=== PATIENT | female | born 1950 | race Caucasian/White ===

== ENCOUNTER → 2018-08-07 | Outpatient (CLI) | payer MEDICARE ==
--- NOTE | 2018-08-07 15:05 | 2DMMODE ---
[place] [address] 2 D/M-MODE ECHOCARDIOGRAM Name: CASTROKULWANT Room: [facility]#: [id number] Admission: 08/07/18 Attend Phys: Jolie Benjamin Discharge: Date of : 52 Date of Service: 08/07/18 1504 Report #: [id number] THIS REPORT FOR: //name// APPROVED REPORT Study performed: 08/07/2018 11:22:20 EXAM: Comprehensive 2D, Doppler, and color-flow Echocardiogram Patient Location: Out-Patient Status: routine BSA: 2.43 HR: 81 bpm BP: 130/80 mmHg Rhythm: NSR Other Information Study Quality: Good Indications Mitral Valve Disease 2D Dimensions IVSd: 10.67 (7-11mm) LVOT Diam: 20.11 (18-24mm) LVDd: 46.67 mm PWd: 10.20 (7-11mm) Ascending Ao: 33.10 (22-36mm) LVDs: 28.87 (25-40mm) Aortic Root: 26.13 mm Volumes Left Atrial Volume (Systole) LA ESV Index: 41.50 mL/m2 Aortic Valve AoV Peak Liang.: 2.14 m/s AO Peak Gr.: 18.26 mmHg LVOT Max P.90 mmHg AO Mean Gr.: 10.64 mmHg LVOT Mean P.79 mmHg LVOT Max V: 1.41 m/s AO V2 VTI: 42.15 cm LVOT Mean V: 0.89 m/s GUSTAVO (VTI): 2.10 cm2 LVOT V1 VTI: 27.84 cm Mitral Valve E/A Ratio: 1.84 MV Decel. Time: 178.19 ms MV E Max Liang.: 1.83 m/[place] [address] 2 D/M-MODE ECHOCARDIOGRAM Name: KULWANT CASTRO Room: [facility]#: [id number] Admission: 08/07/18 Attend Phys: Jolie Benjamin Discharge: Date of : 52 Date of Service: 08/07/18 1504 Report #: [id number] MV PHT: 51.67 ms MVA (PHT): 4.26 cm2 TDI E/Lateral E': 18.30 E/Medial E': 10.76 Medial E' Liang.: 0.17 m/s Lateral E' Liang.: 0.10 m/s Pulmonary Valve PV Peak Liang.: 1.31 m/s PV Peak Gr.: 6.88 mmHg Tricuspid Valve RAP Estimate: 5.00 mmHg TR Peak Gr.: 39.71 mmHg RVSP: 45.00 mmHg PA Pressure: 45.00 mmHg Left Ventricle The left ventricle is normal size. There is normal LV segmental wall motion. There is normal left ventricular wall thickness. Left ventricular systolic function is normal. LVEF is 55-60%. Transmitral Doppler flow pattern suggests impaired LV relaxation. Right Ventricle Right ventricle is mildly dilated. The right ventricular systolic function is normal. Atria Left atrium is mild to moderately dilated. Right atrium is mildly dilated. Aortic Valve The aortic valve is normal in structure. No aortic regurgitation is present. There is no aortic valvular stenosis. Mitral Valve The mitral valve is normal in structure. Moderate mitral regurgitation. No evidence of mitral valve stenosis. Tricuspid Valve The tricuspid valve is normal in structure. Mild tricuspid regurgitation. Moderate pulmonary hypertension. The RVSP is 45-50 mmHg. Pulmonic Valve The pulmonary valve is normal in structure. There is no pulmon[place] [address] 2 D/M-MODE ECHOCARDIOGRAM Name: KULWANT CASTRO Room: [facility]#: [id number] Admission: 08/07/18 Attend Phys: Jolie Benjamin Discharge: Date of : 52 Date of Service: 08/07/18 1504 Report #: [id number] Great Vessels The aortic root is normal in size. IVC is normal in size and collapses >50% with inspiration. Pericardium There is no pericardial effusion. <Conclusion> The left ventricle is normal size. There is normal left ventricular wall thickness. Left ventricular systolic function is normal. LVEF is 55-60%. Transmitral Doppler flow pattern suggests impaired LV relaxation. Right ventricle is mildly dilated. Left atrium is mild to moderately dilated. Right atrium is mildly dilated. Moderate mitral regurgitation. Mild tricuspid regurgitation. Moderate pulmonary hypertension. The RVSP is 45-50 mmHg. IVC is normal in size and collapses >50% with inspiration. <ELECTRONICALLY SIGNED> By: Joe Nick MD, FACC 08/07/18 1504 1504 1504 Joe Nick MD, FACC /INF
== END ==
LOC: M.CRD 10:35
DX: I08.1 Rheumatic disorders of both mitral and tricuspid valves (principal); I27.20 Pulmonary hypertension, unspecified; J81.0 Acute pulmonary edema

== ENCOUNTER 2020-02-16 10:43 | Inpatient (IN) | payer MEDICARE ==
[~2020-02-16] VITALS: Ht 152.4 cm; Wt 158.8 kg
[2020-02-16 11:19] VITALS: BP 109/49
[2020-02-16 12:25] LABS: HEMOGLOBIN 10.7 gm/dL (12.0-15.0); MCH 29.8 pg (26.0-34.0); MCHC 31.6 g/dL (28.0-37.0); MCV 94.4 fL (80.0-100.0); MPV 8.5 fl. (7.2-11.1); RBC 3.6 mil/uL (4.20-5.00); RDW-CV 16.9 % (10.5-14.5); WBC 16.5 thou/uL (4.0-11.0)
[2020-02-16 12:35] LABS: CREATININE 1.1 mg/dL (0.6-1.3); POTASSIUM 3.6 mmol/L (3.5-5.1)
[2020-02-16 12:36] LABS: APTT 22.1 Seconds (25.0-31.3); INR 1.1; PROTIME 11.1 Seconds (9.20-11.50)
[2020-02-16 12:40] LABS: ALBUMIN 2.9 g/dL (3.4-5.0); TOTAL BILIRUBIN 0.5 mg/dL (<0.1-1.0); TOTAL PROTEIN 6.6 g/dL (6.4-8.2)
[2020-02-16 16:10] VITALS: BP 122/66; BP 95/63
[2020-02-16 21:00] VITALS: BP 134/60
[2020-02-17] VITALS: BP 139/62
[2020-02-17 04:00] VITALS: BP 135/59
[2020-02-17 13:35] VITALS: BP 141/63
[2020-02-17 16:00] VITALS: BP 144/75
[2020-02-17 18:00] VITALS: BP 140/72
[2020-02-17 20:40] VITALS: BP 155/74
[2020-02-18] VITALS: BP 158/84
[2020-02-18 04:00] VITALS: BP 154/71
[2020-02-18 10:00] VITALS: BP 161/77
[2020-02-18 14:00] VITALS: BP 150/60
--- NOTE | 2020-02-18 14:17 | 2DMMODE ---
[place] [address] 2 D/M-MODE ECHOCARDIOGRAM Name: CASTROKULWANT Room: [address] IN .R.#: [id number] Admission: 02/18/20 Attend Phys: Dion Gilliam Discharge: Date of : 52 Date of Service: 02/18/20 1415 Report #: [id number] THIS REPORT FOR: cc: Jolie Carvajal Angela Jo RNP Holkins, John M. MD [facility] ~ ADDENDUM APPROVED REPORT Study performed: 02/18/2020 13:20:09 EXAM: Comprehensive 2D, Doppler, and color-flow Echocardiogram Patient Location: In-Patient Room #: 204 Status: routine BSA: 2.37 HR: 82 bpm BP: 154/71 mmHg Rhythm: NSR Other Information Study Quality: Good Indications Dyspnea 2D Dimensions IVSd: 11.72 (7-11mm) LVOT Diam: 20.73 (18-24mm) LVDd: 52.52 mm PWd: 9.57 (7-11mm) Ascending Ao: 35.18 (22-36mm) LVDs: 28.20 (25-40mm) Aortic Root: 30.32 mm Volumes Left Atrial Volume (Systole) LA ESV Index: 53.30 mL/m2 Aortic Valve AoV Peak Liang.: 1.88 m/s AO Peak Gr.: 14.10 mmHg LVOT Max P.61 mmHg AO Mean Gr.: 8.30 mmHg LVOT Mean P.33 mmHg LVOT Max V: 1.07 m/s AO V2 VTI: 32.78 cm LVOT Mean V: 0.89 m/s GUSTAVO (VTI): 2.02 cm2 LVOT V1 VTI: 19.61 [place] [address] 2 D/M-MODE ECHOCARDIOGRAM Name: KULWANT CASTRO Room: [address] IN .R.#: [id number] Admission: 02/18/20 Attend Phys: Dion Gilliam Discharge: Date of : 52 Date of Service: 02/18/20 1415 Report #: [id number] Mitral Valve E/A Ratio: 1.23 MV Decel. Time: 178.19 ms MV E Max Liang.: 1.41 m/s MV PHT: 51.67 ms MVA (PHT): 4.26 cm2 Pulmonary Valve PV Peak Liang.: 1.31 m/s PV Peak Gr.: 6.84 mmHg Tricuspid Valve RAP Estimate: 15.00 mmHg TR Peak Gr.: 37.65 mmHg RVSP: 52.00 mmHg PA Pressure: 52.00 mmHg Left Ventricle The left ventricle is normal size. There is normal LV segmental wall motion. There is normal left ventricular wall thickness. Left ventricular systolic function is normal. The left ventricular ejection fraction is within the normal range. LVEF is 55-60%. Right Ventricle The right ventricle is normal size. The right ventricular systolic function is normal. Atria Left atrium is mildly dilated. The right atrium size is normal. Aortic Valve The aortic valve is normal in structure. No aortic regurgitation is present. There is no aortic valvular stenosis. Mitral Valve The mitral valve is normal in structure. Mild mitral regurgitation. No evidence of mitral valve stenosis. Tricuspid Valve The tricuspid valve is normal in structure. Mild tricuspid regurgitation. Mild pulmonary hypertension. Pulmonic Valve The pulmonary valve is normal in structure. There is no pulmonic valvular regurgitation. [place] [address] 2 D/M-MODE ECHOCARDIOGRAM Name: KULWANT CASTRO Room: [address] IN [facility]#: [id number] Admission: 02/18/20 Attend Phys: Dion Gilliam Discharge: Date of : 52 Date of Service: 02/18/20 1415 Report #: [id number] The aortic root is normal in size. IVC is dilated and collapses >50% with inspiration. Pericardium There is no pericardial effusion. <Conclusion> The left ventricle is normal size. There is normal left ventricular wall thickness. Left ventricular systolic function is normal. The left ventricular ejection fraction is within the normal range. LVEF is 55-60%. The right ventricle is normal size. Left atrium is mildly dilated. The right atrium size is normal. The aortic valve is normal in structure. The mitral valve is normal in structure. Mild mitral regurgitation. The tricuspid valve is normal in structure. Mild tricuspid regurgitation. Mild pulmonary hypertension. IVC is dilated and collapses >50% with inspiration. There is no pericardial effusion. There is normal LV segmental wall motion. <ELECTRONICALLY SIGNED> By: Mckay Cordova MD, FACC 02/18/20 1415 1415 1415 Mckay Cordova MD, FACC /INF
[2020-02-18] MEDS ORDERED: FUROSEMIDE 40 M40 MG PO (15:14)
[2020-02-18] MEDS ORDERED: GABAPENTIN600 M1 PO (15:15)
[2020-02-18] MEDS ORDERED: PLAQUENIL200 MG PO (15:20)
[2020-02-18 15:23] LABS: ABSOLUTE BASOPHILS 0.2 thou/uL (0.0-0.2); ABSOLUTE EOSINOPHILS 0.2 thou/uL (0.0-0.7); ABSOLUTE LYMPHOCYTES 3.3 thou/uL (0.8-5.3); ABSOLUTE MONOCYTES 1.3 thou/uL (0.0-1.2); ABSOLUTE NEUTROPHILS 8.5 thou/uL (1.6-8.1); BASOPHILS 1.2 %; EOSINOPHILS 1.6 %; HEMATOCRIT 29.4 % (37.0-47.0); HEMOGLOBIN 9.6 gm/dL (12.0-15.0); LYMPHOCYTES 24.6 %; MCH 30.2 pg (26.0-34.0); MCHC 32.7 g/dL (28.0-37.0); MCV 92.5 fL (80.0-100.0); MONOCYTES 9.5 %; MPV 9.1 fl. (7.2-11.1); NUCLEATED RBCS 0 /100WBC; POLYS 63.1 %; RBC 3.18 mil/uL (4.20-5.00); WBC 13.6 thou/uL (4.0-11.0)
[2020-02-18 15:25] LABS: PLATELET COUNT* 295 thou/uL (150-400)
[2020-02-18] MEDS ORDERED: BONIVA150 MG PO (15:26)
[2020-02-18] MEDS ORDERED: LEVO-T100 MCG PO (15:27)
[2020-02-18] MEDS ORDERED: PRINIVIL20 M1 PO (15:29)
[2020-02-18] MEDS ORDERED: METHOTREXATE 22.5 M1 PO (15:31)
[2020-02-18] MEDS ORDERED: ORENCIA50 MG/0.4 IV (15:46)
[2020-02-18] MEDS ORDERED: OXYCONTIN60 MG PO (15:47)
[2020-02-18] MEDS ORDERED: OXYCONTIN15 MG PO (15:48)
[2020-02-18] MEDS ORDERED: REQUIP 0.25 M0.25 M1 PO (15:50)
[2020-02-18] MEDS ORDERED: SERTRALINE HCL100 MG PO (15:53)
[2020-02-18 15:54] LABS: MAGNESIUM 2.2 mg/dL (1.8-2.4)
[2020-02-18] MEDS ORDERED: CEFUROXIME250 MG PO (15:54)
[2020-02-18 16:00] LABS: ALBUMIN 3.1 g/dL (3.4-5.0); CALCIUM 8.1 mg/dL (8.5-10.1); CREATININE 0.8 mg/dL (0.6-1.3); POTASSIUM 4.1 mmol/L (3.5-5.1); TOTAL BILIRUBIN 0.8 mg/dL (<0.1-1.0); TOTAL PROTEIN 6.3 g/dL (6.4-8.2)
[2020-02-18] MEDS ORDERED: FLORASTOR250 MG PO (16:05)
[2020-02-18] MEDS ORDERED: CALCIUM CARBON500 MG PO (16:07)
[2020-02-18] MEDS ORDERED: CELEBREX 200 M200 M1 PO (16:09)
[2020-02-18] MEDS ORDERED: ZYRTEC10 M5 PO (16:10)
[2020-02-18] MEDS ORDERED: VITAMIN D31250 MC1 PO (16:12)
[2020-02-18] MEDS ORDERED: NEXIUM40 M2 PO (16:14)
[2020-02-18] MEDS ORDERED: FLONASE 0.05%50 MCG NASAL (16:15)
[2020-02-18] MEDS ORDERED: FOLIC ACID1 MG PO (16:16)
[2020-02-18 16:30] LABS: ESR (SEDRATE) 40 mm/hr (0-30)
[2020-02-18 20:05] VITALS: BP 156/71
[2020-02-19 07:55] VITALS: BP 141/76
[2020-02-19 16:19] VITALS: BP 132/71
[2020-02-19 20:00] VITALS: BP 117/56
[2020-02-19 23:47] VITALS: BP 113/39
[2020-02-20 07:45] VITALS: BP 141/68
[2020-02-20 08:33] LABS: HEMATOCRIT 28.6 % (37.0-47.0); HEMOGLOBIN 9.5 gm/dL (12.0-15.0); MCH 30.8 pg (26.0-34.0); MCHC 33.2 g/dL (28.0-37.0); MCV 92.8 fL (80.0-100.0); MPV 7.8 fl. (7.2-11.1); RBC 3.09 mil/uL (4.20-5.00); RDW-CV 16.7 % (10.5-14.5); WBC 8.9 thou/uL (4.0-11.0)
[2020-02-20 08:46] LABS: ALBUMIN 2.6 g/dL (3.4-5.0); CALCIUM 7.6 mg/dL (8.5-10.1); CREATININE 1.1 mg/dL (0.6-1.3); MAGNESIUM 2.2 mg/dL (1.8-2.4); POTASSIUM 3.7 mmol/L (3.5-5.1); TOTAL BILIRUBIN 0.3 mg/dL (<0.1-1.0); TOTAL PROTEIN 6.1 g/dL (6.4-8.2)
[2020-02-20 16:53] VITALS: BP 109/49
[2020-02-20 19:43] VITALS: BP 153/69
[2020-02-21 09:05] VITALS: BP 125/42
[2020-02-21 20:00] VITALS: BP 154/75
[2020-02-22] VITALS: BP 157/57
[2020-02-22 07:35] VITALS: BP 144/78
[2020-02-22 20:27] VITALS: BP 145/49
[2020-02-23 20:26] VITALS: BP 117/35
[2020-02-24] MEDS ORDERED: AMOXICILLIN250 MG PO (14:23)
[2020-02-24] MEDS ORDERED: ASA81BEC PO (14:24)
[2020-02-24] MEDS ORDERED: LORAZEPAM 0.50.5 MG PO (14:42)
[2020-02-24] MEDS ORDERED: KEPPRA 500 MG500 MG PO (14:43)
[2020-02-24] MEDS ORDERED: NEURONTIN 300M300 M2 PO (14:45)
[2020-02-24] MEDS ORDERED: LOVENOX40 MG/0.4 SUBQ ×2 (14:58→18:47)
[2020-02-24 15:18] VITALS: BP 134/54
[2020-02-24] MEDS ORDERED: ZOFRAN4 MG PO (18:39)
--- NOTE | 2020-02-28 10:44 | EEG ---
[address] [address] EEG STUDY REPORT Name: KULWANT CASTRO Isabel Room: [address] IN M.R.#: [id number] Admission: 02/18/20 Attend Phys: Bonnie Gotti Discharge: 02/24/20 Date of : 52 Report #: [id number] THIS REPORT FOR: //name// CC: Jolie Gilliam DATE OF SERVICE: 02/23/2020 This patient is being evaluated for altered mental status and seizure. The EEG was done by placing the electrodes by standard 10-20 system of electrode placement. Both referential and sequential montages were used for recording. The patient's background activity is intermixed with a lot of muscle artifact. It appeared to be about 8-9 Hz and 30 microvolt. The patient went to sleep and that is associated with bilateral slowing. Photic stimulation is unremarkable. Throughout the record, no active epileptiform activity was noticed. IMPRESSION AND PLAN: This patient's EEG is intermixed with theta range slowing on both sides. That is a nonspecific finding which can occur with drowsiness, effect of psychotropic medication, dementia, etc. A lot of artifact is present and the EEG is difficult to interpret. However, the best it could be interpreted, it does not appear to be showing any epileptiform activity. Thank you very much for this referral. <ELECTRONICALLY SIGNED> By: Marcelo Garrett MD 02/28/20 1044 [id number] [id number] Garrett MD /nt
== END 2020-02-24 17:44 | DRG 871 ==
LOC: M.ERS 10:43 → M.ORTHSURG 14:10 → M.TBA-ER 14:10 → M.ORTHSURG 16:13 → M.2W 02-18 13:29 → M.ORTHSURG 02-20 17:16 → M.2W 02-21 19:44 → M.ORTHSURG 02-22 19:06
PROVIDERS: Personal Emergency Response Attendant; ADMIT Internal Medicine
PROC: 0BH17EZ Insertion of Endotracheal Airway into Trachea, Via Natural or Artificial Opening (ICD-10-PCS; principal; 2020-02-16)
PROC: 5A12012 Performance of Cardiac Output, Single, Manual (ICD-10-PCS; principal; 2020-02-16)
PROC: 5A1935Z Respiratory Ventilation, Less than 24 Consecutive Hours (ICD-10-PCS; 2020-02-16)
DX: A41.9 Sepsis, unspecified organism (principal); J96.21 Acute and chronic respiratory failure with hypoxia; I46.9 Cardiac arrest, cause unspecified; Z68.44 Body mass index [BMI] 60.0-69.9, adult; J84.9 Interstitial pulmonary disease, unspecified; G89.29 Other chronic pain; E66.01 Morbid (severe) obesity due to excess calories; Z51.5 Encounter for palliative care; F11.90 Opioid use, unspecified, uncomplicated; R56.9 Unspecified convulsions; M21.379 Foot drop, unspecified foot; R41.3 Other amnesia; Z66 Do not resuscitate; Z88.8 Allergy status to other drugs, medicaments and biological substances; Z91.048 Other nonmedicinal substance allergy status; Z91.09 Other allergy status, other than to drugs and biological substances; Z20.828 Contact with and (suspected) exposure to other viral communicable diseases

== ENCOUNTER 2020-02-24 12:53 | Inpatient (IN) | payer MEDICARE ==
[~2020-02-24] VITALS: Ht 154.9 cm; Wt 139.6 kg
[~2020-02-24 12:53] MED LIST: BONIVA150 MG PO; CALCIUM CARBON500 MG PO; CEFUROXIME250 MG PO; CELEBREX 200 M200 M1 PO; FLONASE 0.05%50 MCG NASAL; FLORASTOR250 MG PO; FOLIC ACID1 MG PO; FUROSEMIDE 40 M40 MG PO; GABAPENTIN600 M1 PO; LEVO-T100 MCG PO; METHOTREXATE 22.5 M1 PO; NEXIUM40 M2 PO; ORENCIA50 MG/0.4 IV; OXYCONTIN15 MG PO; OXYCONTIN60 MG PO; PLAQUENIL200 MG PO; PRINIVIL20 M1 PO; REQUIP 0.25 M0.25 M1 PO; SERTRALINE HCL100 MG PO; VITAMIN D31250 MC1 PO; ZYRTEC10 M5 PO
[2020-02-24] MEDS ORDERED: AMOXICILLIN250 MG PO (14:23)
[2020-02-24] MEDS ORDERED: ASA81BEC PO (14:24)
[2020-02-24] MEDS ORDERED: LORAZEPAM 0.50.5 MG PO (14:42)
[2020-02-24] MEDS ORDERED: KEPPRA 500 MG500 MG PO (14:43)
[2020-02-24] MEDS ORDERED: NEURONTIN 300M300 M2 PO (14:45)
[2020-02-24] MEDS ORDERED: LOVENOX40 MG/0.4 SUBQ ×2 (14:58→18:47)
--- NOTE | 2020-02-24 18:07 | NUR ---
ASSUMED CARE OF PATIENT AT APPROX 0730. ALERT AND ORIENTED X4. ASSESSMENT COMPLETED AND CHARTED. VSS ON ROOM AIR. COMPLAINT OF PAIN ON CHEST FROM COMPRESSION DONE IN ED, ADDRESSED WITH SCHEDULED OXYCONTIN. NO OTHER COMPLAINTS THIS SHIFT. PATIENT UP WITH ASSIST TO BEDSIDE COMMODE TO VOID, BM THIS AM. PATIENT USES CPAP AT NOC. DISCHARGE COMPLETED AND PATIENTS BELONGINGS PACKED UP, TRANSFERRED TO REHAB UNIT AT APPROX 1730. REPORT GIVEN TO VIR[place] MAYO.
[2020-02-24] MEDS ORDERED: ZOFRAN4 MG PO (18:39)
[2020-02-24 19:48] VITALS: BP 114/43
--- NOTE | 2020-02-25 04:09 | NUR ---
ASSUMED CARE OF PT 02/24/20 AT APPROX 1930. PT A&OX4, ON ROOM AIR, VSS. PAIN MEDS REQUESTED AND GIVEN ORDERED. ASSESSMENTS AND HOURLY ROUNDINGS COMPLETE, WILL CONTINUE TO MONITOR.
[2020-02-25 04:45] LABS: HEMATOCRIT 30.8 % (37.0-47.0); MCH 30.1 pg (26.0-34.0); MCHC 32.6 g/dL (28.0-37.0); MCV 92.6 fL (80.0-100.0); RBC 3.33 mil/uL (4.20-5.00); RDW-CV 16.5 % (10.5-14.5); WBC 10.1 thou/uL (4.0-11.0)
[2020-02-25 04:59] LABS: CALCIUM 8.6 mg/dL (8.5-10.1); CREATININE 1.1 mg/dL (0.6-1.3); POTASSIUM 3.6 mmol/L (3.5-5.1)
[2020-02-25 08:07] VITALS: BP 154/66
--- NOTE | 2020-02-25 11:18 | NUR ---
Nutrition: Pt admitted to Rehab, s/p COVID. Wt: 310#. Per RN, Pt is eating well. Albumin 2.6, prealbumin 13.6 - moderately low. She is on Regular diet. No nutrition needs at this time. Will follow weekly. Low risk.
--- NOTE | 2020-02-25 16:57 | NUR ---
Initial rehab assessment: Pt lives in apt alone and was previously fairly independent with mobility and ADLs. Pt has supportive sisters. Pt has walker and wc. Pt is current with [facility]. SW to continue to follow to assist with safe dc planning.
--- NOTE | 2020-02-25 18:32 | NUR ---
AM ASSESSMENT AND VITAL SIGNS COMPLETED DOCUMENTED. PT PARTICIPATED IN THERAPIES AND TOLERATED WELL. NEW ORDERS REC'D FOR PEROXIDE AND MAGIC MOUTHWASH FOR MOUTHSORES. PT HAS BEEN CONTINENT OF BOWEL AND BLADDER. FALL PRECAUTIONS AND HOURLY ROUNDING CONTINUE.
[2020-02-25 20:00] VITALS: BP 167/44
--- NOTE | 2020-02-26 01:20 | NUR ---
ASSUMED CARE @ 1934-02/24-FRIDAY.SITS IN RECLINER WATCHING TV.CHAIR ALARM ALREADY ON @ 1934.SEE PAIN MANAGEMENT @ 2120.HOB UP IN BED.BED ALARM PUT ON @ 2139.WANTS ALL LIGHTS OFF & DOOR CLOSED @ NIGHT.PEDIGREE RESEARCHER PUT H20 IN C PAP MACHINE. PATIENT CLAIMS -WILL PUT C PAP BY SELF.CHECKED PATIENT @ 2335 & FOUND SLEEPING.AWAKENED TO PUT C PAP ON & SHE DID BY SELF.ON HOURLY ROUNDS.PEDIGREE RESEARCHER DOING ODD HOUR ROUNDS.
--- NOTE | 2020-02-26 05:08 | NUR ---
SLEEPING @ 2335 & ALL NIGHT.TOOK ALL SALVADOR.PUDDING HS SNACK.BRP X1 W/ ASSIST DURING NIGHT.
[2020-02-26 08:25] VITALS: BP 133/64
--- NOTE | 2020-02-26 16:19 | NUR ---
ASSUMMED CARE OF PT AT 0730, PT ALERT AND ORIENTED, PT TRANSFERS WITH ASSIST OF 1, GB WALKER, C/O PAIN IN LOW BACK/RIBS, MEDICATED PER ORDER, MEDICATIONS GIVEN PER ORDER TO SORES ON MOUTH, TAKING FOOD AND FLUIDS WELL,AMBULATES TO BATHROOM TO VOID, PARTICIPATED IN ALL THERAPIES, HOURLY ROUNDING COMPLETED, ASSESSMENT COMPLETE, WILL CONTINUE TO MONITOR.
[2020-02-26 20:00] VITALS: BP 121/59
--- NOTE | 2020-02-27 04:52 | NUR ---
PT A&O, VSS ON RA. MEDS GIVEN ORDERED. UP TO THE BATHROOM WITH MINIMUM ASSIST. SLEEPING THROUGH THE NIGHT WITH HOME CPAP ON. BED ALARM ON. CALL LIGHT WITHIN REACH. NO OTHER CONCERNS AT THIS TIME. WILL CONTINUE TO MONITOR.
[2020-02-27 08:25] VITALS: BP 138/60
--- NOTE | 2020-02-27 16:11 | NUR ---
ASSUMMED CARE OF PT AT 0730, PT ALERT AND ORIENTED, PT TRANSFERS WITH GB WALKER ASSIST OF 1, AMBULATES TO BATHROOM TO VOID, LARGE BM X 1, TAKING FOOD AND FLUIDS WELL, UP IN W/C OR RECLINER MOST OF SHIFT, MEDICATED X 1 FOR STERNAL/BACK PAIN WITH GD RELIEF, PT BATHED SITTING AT SINK THIS AM, HOURLY ROUNDING COMPLETED, ASSESSMENT COMPLETE, WILL CONTINUE TO MONITOR.
[2020-02-27 20:30] VITALS: BP 122/61
--- NOTE | 2020-02-28 05:17 | NUR ---
PT UP WITH SBA, GB AND WALKER AT HS TO BATHROOM TO VOID WITHOUT DIFFICULTY. ABLE TO LOWER AND RAISE PANTS AND UNDERCLOTHES AND PERFORM CRISTHIAN CARE INDEP. OXYCONTIN GIVEN AT HS FOR CHRONIC BACK AND HIP PAIN PER PT REQUEST WITH GOOD RESULT. PT SLEPT WELL OVERNIGHT USING CPAP. ROOM AIR, VSS. NO LABS THIS MORNING. TAKES PILLS WHOLE WITHOUT WATER WITHOUT DIFFICULTY. USING ORAL RINSES FOR LIP LESIONS. DNR. ABLE TO USE CALL LITE AND MAKE NEEDS KNOWN. BED ALARM ON FOR SAFETY.
[2020-02-28 07:49] VITALS: BP 123/60
--- NOTE | 2020-02-28 17:36 | NUR ---
PT A&OX4 VSS. PT UP W/ASSIST X1 W/GAIT BELT AND WALKER. PT ON ROOM AIR THROUGHOUT DAY, CPAP AT NOC. PT TO SHOWER W/THERAPY THIS AM. MAGIC MOUTHWASH AND PEROXIDE USED FOR ORAL CARE. NO C/O NAUSE/VOMITING. PRN PAIN MEDICATION ADMINISTERED THIS AM PRIOR TO THERAPY. PT RESTS IN ROOM WITH CALL LIGHT IN REACH. WILL CONTINUE TO MONITOR.
[2020-02-28 19:15] VITALS: BP 112/53
--- NOTE | 2020-02-28 20:25 | NUR ---
SITTING UP IN RECLINER WATCHING TV. PAIN MEDICATION GIVEN FOR COMPLAINT OF BACK PAIN. TOOK MEDICATIONS WHOLE WITH WATER AFTER CONSUMING APPLESAUCE AND JEREMIAH CRACKERS. CALL LIGHT WITHIN REACH.
--- NOTE | 2020-02-29 04:33 | NUR ---
NO FURTHER COMPLAINT OF PAIN. HOURLY ROUNDING IN PROGRESS.
[2020-02-29 08:13] VITALS: BP 125/57
--- NOTE | 2020-02-29 16:25 | NUR ---
SW called pt in preparation for team conference tomorrow and to introduce self and further explain SW role on inpt rehab unit. Pt goals for dc home alone when ready to dc. Pt has [employer] phone system and a necklace that holds her cell phone. SW to follow up with pt sister to review team conference summary after team conference tomorrow.
--- NOTE | 2020-02-29 16:42 | NUR ---
ASSUMMED CARE OF PT AT 0730, PT ALERT AND ORIENTED, PT TRANSFERS WITH SBA, GB WALKER, AMBULATES TO BATHROOM TO VOID, MEDICATED X 1 THIS AM FOR STERNAL/BACK/HIP PAIN WITH GOOD RELIEF, MOUTH RINSE COMPLETED FOR LESION ON LIPS, TAKING FOOD AND FLUIDS WELL, UP IN CHAIR MOST OF SHIFT, PARTICIPATED IN ALL THERAPIES, HOURLY ROUNDING COMPLETED, ASSESSMENT COMPLETE, WILL CONTINUE TO MONITOR.
[2020-02-29 19:15] VITALS: BP 123/55
--- NOTE | 2020-02-29 20:40 | NUR ---
SITTING UP IN BED. TELECOM SALES CONSULTANT ASSISTING PATIENT WITH CELL PHONE SO PATIENT CAN VIDEO CHAT WITH FAMILY. TOOK MEDICATIONS WHOLE AFTER CONSUMING APPLESAUCE AND JEREMIAH CRACKERS WITH WATER. PAIN MEDICATION GIVEN FOR COMPLAINT OF BACK PAIN. CALL LIGHT WITHIN REACH.
--- NOTE | 2020-03-01 05:56 | NUR ---
UP TO THE BATHROOM X ONE DURING THE NIGHT TO VOID. NO FURTHER COMPLAINT OF PAIN. HOURLY ROUNDING IN PROGRESS.
[2020-03-01 08:43] VITALS: BP 139/49
--- NOTE | 2020-03-01 17:23 | NUR ---
SW called pt sister to review team conference summary and plan for reteam next Friday with possible dc after team on Thursday 03/08. SW to continue to follow to assist with safe dc planning.
[2020-03-01 19:00] VITALS: BP 107/53
--- NOTE | 2020-03-02 04:33 | NUR ---
PT A&O. MEDS GIVEN ORDERED. UP TO THE BATHROOM WITH WALKER WITH STANDBY ASSIST. PT SLEEPING THROUGH THE NIGHT WITH HOME CPAP ON. CALL LIGHT WITHIN REACH. NO OTHER CONCERNS AT TIME. WILL CONINUE TO MONITOR.
[2020-03-02 08:00] VITALS: BP 127/47
[2020-03-02 10:43] LABS: HEMATOCRIT 36.1 % (37.0-47.0); HEMOGLOBIN 11.8 gm/dL (12.0-15.0); MCH 30.3 pg (26.0-34.0); MCHC 32.8 g/dL (28.0-37.0); MCV 92.3 fL (80.0-100.0); MPV 8.7 fl. (7.2-11.1); RBC 3.91 mil/uL (4.20-5.00); RDW-CV 16.2 % (10.5-14.5); WBC 7.5 thou/uL (4.0-11.0)
[2020-03-02 11:00] LABS: ALBUMIN 3.4 g/dL (3.4-5.0); CALCIUM 8.7 mg/dL (8.5-10.1); MAGNESIUM 2.3 mg/dL (1.8-2.4); POTASSIUM 3.8 mmol/L (3.5-5.1); TOTAL BILIRUBIN 0.4 mg/dL (<0.1-1.0); TOTAL PROTEIN 7.2 g/dL (6.4-8.2)
[2020-03-02 19:40] VITALS: BP 111/51
--- NOTE | 2020-03-02 21:05 | NUR ---
SITTING UP IN RECLINER WATCHING TV. PAIN MEDICATION GIVEN FOR COMPLAINT OF GENERALIZED PAIN RATED "7". TOOK MEDICATIONS WHOLE A FEW AT A TIME WITH WATER AFTER CONSUMING APPLESAUCE AND JEREMIAH CRACKERS. CALL LIGHT WITHIN REACH.
--- NOTE | 2020-03-03 05:11 | NUR ---
DIDN'T GO TO BED UNTIL 2229. RESTED QUIETLY. NO FURTHER COMPLAINT OF PAIN. HOURLY ROUNDING IN PROGRESS.
[2020-03-03 09:11] VITALS: BP 131/54
[2020-03-03 14:30] VITALS: BP 131/47
--- NOTE | 2020-03-03 15:25 | NUR ---
PATIENT WAS WORKING WITH PHYSICAL THERAPY ABOUT 1400. PER PHYSICAL THERAPY, PATIENT LEG SNAPPED AND PATIENT FELL. PRESSURE APPLIED TO WOUND ALONG LEFT OROZCO WHERE LEG BROKE. TOURNIQUET APPLIED. PATIENT STAYED ALERT THE WHOLE TIME. CALL TO DR. OCHOA (FLOAT OPERATOR). ORDERED TO SEND TO SECOND FLOOR, ORTHO CONSULT, FENTANYL 50MCG X1 AND STAT XRAY. THIS NURSE ASKED IF PATIENT WAS TO GO TO THE EMERGENCY ROOM. FORENSIC PHOTOGRAPHER GOT NEW ORDERS FROM DR. OCHOA TO ADMIT PATIENT TO EMERGENCY ROOM. IV STARTED BY EFRAINRN 20G R HAND. PATIENT TAKEN TO ER ON GURNEY BY ER STAFF. [place] ACCOMPANIED PATIENT TO ER. CALL MADE TO PATIENT'S SISTER TO MEET PATIENT IN EMERGENCY ROOM.
[2020-03-04] MEDS ORDERED: MIRALAX119 GM PO (00:58)
[2020-03-04] MEDS ORDERED: COLACE100 MG PO (00:59)
== END 2020-03-03 14:40 | disposition left against medical advice (07) | DRG 947 ==
LOC: M.REH 12:53
PROVIDERS: Family Medicine; ADMIT Physical Medicine & Rehabilitation
DX: R41.82 Altered mental status, unspecified (principal); J96.21 Acute and chronic respiratory failure with hypoxia; A41.9 Sepsis, unspecified organism; J84.9 Interstitial pulmonary disease, unspecified; Z68.43 Body mass index [BMI] 50.0-59.9, adult; R53.81 Other malaise; E66.01 Morbid (severe) obesity due to excess calories; G89.4 Chronic pain syndrome; D72.829 Elevated white blood cell count, unspecified; R56.9 Unspecified convulsions; M21.379 Foot drop, unspecified foot; M06.9 Rheumatoid arthritis, unspecified; Z88.8 Allergy status to other drugs, medicaments and biological substances; Z79.899 Other long term (current) drug therapy

== ENCOUNTER 2020-03-03 14:47 | Inpatient (IN) | payer MEDICARE ==
[~2020-03-03] VITALS: Ht 172.7 cm; Wt 140.6 kg
[2020-03-03 14:47] VITALS: BP 125/65
[~2020-03-03 14:47] MED LIST changes: +AMOXICILLIN250 MG PO; +ASA81BEC PO; +KEPPRA 500 MG500 MG PO; +LORAZEPAM 0.50.5 MG PO; +LOVENOX40 MG/0.4 SUBQ; +NEURONTIN 300M300 M2 PO; +ZOFRAN4 MG PO
[2020-03-03 15:23] LABS: ABSOLUTE BASOPHILS 0.2 thou/uL (0.0-0.2); ABSOLUTE EOSINOPHILS 0.6 thou/uL (0.0-0.7); ABSOLUTE MONOCYTES 0.8 thou/uL (0.0-1.2); ABSOLUTE NEUTROPHILS 4.3 thou/uL (1.6-8.1); BASOPHILS 1.7 %; EOSINOPHILS 5.4 %; HEMATOCRIT 35.5 % (37.0-47.0); HEMOGLOBIN 11.7 gm/dL (12.0-15.0); LYMPHOCYTES 45.9 %; MCH 30.4 pg (26.0-34.0); MCHC 32.9 g/dL (28.0-37.0); MCV 92.5 fL (80.0-100.0); MONOCYTES 7.5 %; MPV 8.9 fl. (7.2-11.1); NUCLEATED RBCS 0 /100WBC; PLATELET COUNT* 305 thou/uL (150-400); POLYS 39.5 %; RBC 3.84 mil/uL (4.20-5.00); RDW-CV 16.2 % (10.5-14.5); WBC 10.8 thou/uL (4.0-11.0)
[2020-03-03 15:30] LABS: CALCIUM 8.6 mg/dL (8.5-10.1); CREATININE 1.2 mg/dL (0.6-1.3); POTASSIUM 4.2 mmol/L (3.5-5.1)
[2020-03-03 15:31] LABS: APTT 24.7 Seconds (25.0-31.3); PROTIME 10.7 Seconds (9.20-11.50)
[2020-03-03 15:41] LABS: ALBUMIN 3.5 g/dL (3.4-5.0); TOTAL BILIRUBIN 0.4 mg/dL (<0.1-1.0); TOTAL PROTEIN 7.2 g/dL (6.4-8.2)
[2020-03-03 16:38] VITALS: BP 114/70
--- NOTE | 2020-03-03 22:13 | NUR ---
PT ADMITTED TO 314 FROM OR @ 2015. REPORT RECIEVED FROM OR NURSE. PT ALERT AND ORIENTED AT TIME OF ADMISSION. PT ORIENTED TO RM AND CALL LIGHT. HOME MEDS RECONCILED. PT HAS EXTERNAL FIXATOR TO LEFT LEG. ADMISSION AND FALL CONSENTS NOT SIGNED DUE TO <24HRS OF ANESTHESIA. NWB TO LEFT LEG. PT ON REGULAR DIET. REFUSED ALL NIGHT MEDS FOR FEAR OF HAVING STOMACH UPSET. FALL PRECAUTION IN PLACE. PACHECO IN PLACE. CALL LIGHT WITHIN REACH. WILL CONTINUE TO MONITOR.
[2020-03-04] VITALS: BP 136/66
[2020-03-04] MEDS ORDERED: MIRALAX119 GM PO (00:58)
[2020-03-04] MEDS ORDERED: COLACE100 MG PO (00:59)
[2020-03-04 04:00] VITALS: BP 124/48
[2020-03-04 04:43] LABS: URINE BILIRUBIN NEGATIVE (Negative); URINE BLOOD TRACE (Negative); URINE CLARITY CLEAR; URINE COLOR YELLOW; URINE GLUCOSE-RANDOM NEGATIVE (Negative); URINE KETONES NEGATIVE (Negative); URINE LEUKOCYTES-REFLEX NEGATIVE (Negative); URINE NITRITE-REFLEX NEGATIVE (Negative); URINE PROTEIN NEGATIVE (Negative); URINE UROBILINOGEN 0.2 E.U./dl (0.2-1.0)
[2020-03-04 05:15] LABS: HEMATOCRIT 28.3 % (37.0-47.0)
[2020-03-04 05:24] LABS: HEMOGLOBIN 9.4 gm/dL (12.0-15.0)
[2020-03-04 05:52] LABS: RBC 3.06 mil/uL (4.20-5.00); WBC 9.9 thou/uL (4.0-11.0)
[2020-03-04 05:53] LABS: MCH 30.9 pg (26.0-34.0); MCHC 33.5 g/dL (28.0-37.0); MCV 92.2 fL (80.0-100.0); MPV 9.4 fl. (7.2-11.1)
[2020-03-04 05:55] LABS: ALBUMIN 2.8 g/dL (3.4-5.0); CALCIUM 8.1 mg/dL (8.5-10.1); CREATININE 1.1 mg/dL (0.6-1.3); MAGNESIUM 2.3 mg/dL (1.8-2.4); PHOSPHORUS* 4.6 mg/dL (2.5-4.9); POTASSIUM 4.7 mmol/L (3.5-5.1)
--- NOTE | 2020-03-04 07:26 | NUR ---
PT ALERT AND ORIENTED. VSS ON RA. CPAP @ HS. PAIN MED GIVEN X1 THIS SHIFT. LEFT LEG DRESSING C/D/I. WOUND VAC TO LEFT LEG INTACT. FALL PRECAUTION IN PLACE. CALL LIGHT WITHIN REACH. HOURLY ROUNDIGNS MADE. WILL CONTINUE TO MONITOR.
[2020-03-04 07:50] VITALS: BP 122/49
[2020-03-04 07:59] LABS: INR 1.1; PROTIME 10.9 Seconds (9.20-11.50)
--- NOTE | 2020-03-04 10:49 | EKG ---
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 03/04/20 1047 1543 1543 Negar Villarreal MD, [facility] /EPI
[2020-03-04 15:49] VITALS: BP 107/57
--- NOTE | 2020-03-04 16:12 | NUR ---
PATIENT DOWN FOR CT OF LEFT LEG THIS AM PER ORTHO, ATTEMPTED TO CALL RESULTS BUT ORTHO STATED THEY WOULD LOOK AT REPORT. REPOSITIONED Q2, PATIENT DID REFUSE AT TIMES. IV SL, SCHED ABX REMAIN. PRN DILAUDID GIVEN X 1 AND HYDROCODONE GIVEN X 1 THIS SHIFT FOR PAIN, GOOD RELIEF NOTED FROM EACH. PACHECO REMAINS IN PLACE DRAINING LARGE AMOUNTS OF URINE.
[2020-03-04 20:00] VITALS: BP 128/63
[2020-03-05 01:21] VITALS: BP 100/42
[2020-03-05 04:24] LABS: HEMATOCRIT 26.1 % (37.0-47.0); HEMOGLOBIN 8.6 gm/dL (12.0-15.0); MCH 30.5 pg (26.0-34.0); MCHC 32.9 g/dL (28.0-37.0); MCV 92.8 fL (80.0-100.0); MPV 8.9 fl. (7.2-11.1); RBC 2.81 mil/uL (4.20-5.00); RDW-CV 15.9 % (10.5-14.5); WBC 10.8 thou/uL (4.0-11.0)
[2020-03-05 04:45] LABS: CALCIUM 7.9 mg/dL (8.5-10.1); CREATININE 1.1 mg/dL (0.6-1.3); MAGNESIUM 2.2 mg/dL (1.8-2.4)
[2020-03-05 04:50] LABS: POTASSIUM 3.7 mmol/L (3.5-5.1)
[2020-03-05 07:20] VITALS: BP 127/46
--- NOTE | 2020-03-05 07:39 | NUR ---
PT ALERT AND ORIENTED. VSS ON RA. CPAP @ HS. MEDS GIVEN PER EMAR. PT SLEPT WELL THIS SHIFT. FALL PRECAUTION IN PLACE. ORTHO RESIDENT PERFORMED PIN CARE THIS AM. CALL LIGHT WITHIN REACH. HOURLY ROUNDINGS MADE. WILL CONTINUE TO MONITOR.
--- NOTE | 2020-03-05 16:54 | NUR ---
PATIENT TURNED Q2. PRN HYDROCODONE GIVEN FOR LEFT LEG PAIN, GOOD RELIEF NOTED. PIN CARE WAS DONE BY DR. HOOD FROM ORTHO THIS AM. ICE REMAINS TO LEFT LEG. CAP REFILL REMAINS AT LESS THAN 3 SECONDS, TOES WARM AND PATIENT ABLE TO WIGGLE TOES ON LEFT FOOT. IV REMAINS SL, SCHED ABX REMAIN. PACHECO CONTINUES DRAINING LARGE AMOUNTS OF YELLOW URINE.
[2020-03-05 17:01] VITALS: BP 112/60
[2020-03-05 20:00] VITALS: BP 117/58
--- NOTE | 2020-03-06 07:16 | NUR ---
PT ALERT AND ORIENTED. VSS ON RA. CPAP @ HS. VERY PLEASANT. MEDS GIVEN PER EMAR. PT WAS UP FOR ABOUT HALF OF SHIFT, COMPLAINING OF DISCOMFORT AND UNABLE TO SLEEP. PT COMPLAINED OF OCCASSIONAL MUSCLE SPASMS AT LLE. ATIVAN GIVEN X1 THIS SHIFT. PT SLEPT WELL AFTERWARDS. CALL LIGHT WITHIN REACH. FALL PRECAUTION IN PLACE. WILL CONTINUE TO MONITOR.
[2020-03-06 07:22] LABS: HEMATOCRIT 28.2 % (37.0-47.0); HEMOGLOBIN 9.2 gm/dL (12.0-15.0)
[2020-03-06 07:35] VITALS: BP 148/64
[2020-03-06] MEDS ORDERED: TRAZODONE 150150 M1 PO (15:18)
[2020-03-06] MEDS ORDERED: PLAQUENIL200 MG PO (15:18)
[2020-03-06 15:30] VITALS: BP 104/43
--- NOTE | 2020-03-06 16:32 | NUR ---
LYLA familiar with pt as pt was on inpt rehab unit prior to fall and admittance to acute care. SW was notified of need for pt to be able to transfer to for workup of pathologic lesion. LYLA called transfer team and spoke with Dank multiple times throughout the day and Dr Buck also spoke with Dank at . SW faxed referral and needed records and radiology images uploaded to the [facility] for . Transfer not available today due to accepting physician is in OR and unable to speak with transfer team to proceed with transfer process; SW to receive status of transfer in the morning and continue to follow to assist with safe dc/transfer. Pt nurse aware and nurse discussed with pt to provide status of transfer pending. Dank at [phone]
--- NOTE | 2020-03-06 16:46 | NUR ---
PT REMAINED ALERT AND ORIENTED. PT RESTING IN BED. PT WORKED WITH PT/OT. PINS CLEANED ORDERED. PAIN MEDS GIVEN ORDERED. PT WILL TRANSFER TO POSSIBLY TOMORROW MORNING. FALL RISK PRECAUTIONS IN PLACE. HOURLY ROUNDING COMPLETED. WOUND VAC IN PLACE. WILL CONTINUE TO MONITOR.
[2020-03-06 21:23] VITALS: BP 106/37
[2020-03-06 23:57] VITALS: BP 127/57
[2020-03-07 06:06] LABS: HEMATOCRIT 28.8 % (37.0-47.0); HEMOGLOBIN 9.5 gm/dL (12.0-15.0); MCH 30.5 pg (26.0-34.0); MCHC 32.9 g/dL (28.0-37.0); MCV 92.7 fL (80.0-100.0); MPV 9.2 fl. (7.2-11.1); RBC 3.11 mil/uL (4.20-5.00); RDW-CV 16.3 % (10.5-14.5); WBC 10.4 thou/uL (4.0-11.0)
[2020-03-07 06:19] LABS: ALBUMIN 2.8 g/dL (3.4-5.0); CALCIUM 8.5 mg/dL (8.5-10.1); CREATININE 1.1 mg/dL (0.6-1.3); MAGNESIUM 2.1 mg/dL (1.8-2.4); POTASSIUM 3.5 mmol/L (3.5-5.1)
--- NOTE | 2020-03-07 06:34 | NUR ---
PATIENT SLEPT WELL DURING THIS SHIFT. PT WITH PACHECO TO DEPENDENT DRAIN WITH YELLOW URINE. PT ASSISTED WITH TURNS AND REPOSITIONING. PT WITH SALINE LOCK IN RT FOREARM. FREQUENTLY USED ITEMS AND CALL LIGHT WITHIN REACH. SIDERAILS UPX3 AND BED ALARM ON. WILL CONTINUE TO MONITOR.
--- NOTE | 2020-03-07 08:33 | NUR ---
Nutrition: Pt possibly transferring to [facility] today. Admitted with LLE FX. Assessed for high BMI. H/o OBE. Alb 2.8, prealb 16. Regular diet ordered. Eating 80-100% of meals. No nutrition interventions needed at this time. Mild risk.
[2020-03-07 09:00] VITALS: BP 152/58
--- NOTE | 2020-03-07 16:40 | NUR ---
LYLA received call from transfer team this morning and spoke with Dee who explained that once Dr De La Fuente was able to review the referral and also reviewed with a radiologist for another opinion, they believe that there is no pathological lesion and pt injury will heal on its own so they declined transfer. LYLA discussed with Dipika Walter NP who discussed with pt and pt sister Chio. LYLA also called pt but pt did not answer and LYLA called pt sister Chio who said that she was talking with pt at the time. LYLA discussed planning for pt with pt sister and the reevaluation that pt may be able to return to inpt rehab. SW also discussed Medicare coverage with pt sister. SW to continue to follow to assist with safe dc planning.
--- NOTE | 2020-03-07 20:34 | NUR ---
I ASSUMED CARE OF THE PATIENT AT 0700. SHE IS ALERT AND ORIENTED X4 AND IS ON BEDREST. SHE HAS EXTERNAL FIXATION TO THE LEFT LEG. BED IS IN THE LOW LOCKED POSITION AND CALL LIGHT IS IN REACH. HOURLY ROUNDING IS COMPLETED AND PATIENT NEEDS ARE MET. PAIN IS MANAGED WITH SCHEDULED PAIN MEDS. 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 PLAN IS THAT SHE CAN TRY TO GO BACK TO REHAB TOMORROW OR WHEN A BED OPENS UP. WOUND VAC IS WORKING WELL. PACHECO IS IN PLACE. SHE IS COMPLIANT WITH TURNS. WILL CONTINUE TO MONITOR.
[2020-03-07 21:15] VITALS: BP 124/56; BP 129/56
[2020-03-08] VITALS: BP 118/44
[2020-03-08 04:00] VITALS: BP 134/69
--- NOTE | 2020-03-08 05:00 | NUR ---
PATIENT HAS REMAINED ALERT AND ORIENTED X 4 THROUGHOUT THE SHIFT AND RESTING QUIETLY ON HOURLY ROUNDS. BEDREST AND ASSIST WITH TURNS PRN. LLE ELEVATED ON PILLOWS. DRESSINGS TO LLE CHANGED BY DAYSHIFT. WOUND VAC IN PLACE DRAINING BROWN-RED DRAINAGE. VITAL SIGNS STABLE. ANTIBIOTICS PER ORDER. CONTINUE TO MONITOR.
[2020-03-08 07:55] VITALS: BP 145/57
--- NOTE | 2020-03-08 12:52 | NUR ---
Per , Pt going for leision bx and wound vac change today. Following.
--- NOTE | 2020-03-08 17:21 | NUR ---
PATIENT RESTING IN BED. PATIENT DENIES ANY PAIN REQUIRING MEDICATION. PATIENT WENT FOR BIOPSY AND WOUND VAC REMOVAL THIS AFTERNOON WITHOUT INCIDENT. PATIENT HAS GOOD APPETITE. PATIENT DENIES ANY NEEDS AT THIS TIME. CALL LIGHT WITHIN REACH.
[2020-03-08 20:15] VITALS: BP 129/64
--- NOTE | 2020-03-09 05:19 | NUR ---
PATIENT HAS SLEPT WELL THROUGHOUT THE NIGHT. VSS ON RA WITH HOME CPAP AT . PAIN WELL CONTROLLED. MEDICATIONS GIVEN ORDERED AND CHARTED. PATIENT HAS REMAINED ON BEDREST DURING THE NIGHT AND HAS REMAINED NWB. EXTERNAL FIXATOR IN PLACE WITH LEG ELEVATED AND DRESSING IS C/D/I. PACHECO TO DEPENDENT DRAINAGE WITH YELLOW URINE OUTPUT. IV IN RIGHT FOREARM-SL. IV ABT GIVEN WITHOUT ANY ADVERSE SIDE EFFECTS. PATIENT INSTRUCTED TO USE CALL LIGHT WHEN NEEDING ASSISTANCE. HOURLY ROUNDS MADE. WILL CONTINUE WITH PLAN OF CARE AND NURSING TO MONITOR.
--- NOTE | 2020-03-09 07:01 | OP ---
[address] [address] OPERATIVE REPORT Name: KULWANT CASTRO Room: [address] IN .R.#: [id number] Admission: 03/03/20 Attend Phys: Deborah Wayne MD Discharge: Date of : 52 Report #: [id number] THIS REPORT FOR: //name// cc: Jolie Carvajal Angela Jo MEDICAL OFFICE PROFESSIONAL INSTRUCTOR ~ THIS REPORT FOR: //name// CC: Jolie Wayne DATE OF SERVICE: 03/08/2020 PREOPERATIVE DIAGNOSES: 1. Prior left open tibia fracture with external fixation. 2. CT scan verifying a tibia bone lesion at the proximal tibia. POSTOPERATIVE DIAGNOSES: 1. Prior left open tibia fracture with external fixation. 2. CT scan verifying a tibia bone lesion at the proximal tibia. SURGERY PERFORMED: Left lower extremity and incisional debridement of fibrinous tissue as well as a hematoma across the surgical site with curettage and rongeur bone biopsy of the proximal tibial lesion and partial closure of this wound. SURGEON: Alcon Ward DO PULP MACHINE OPERATOR: Rohit Senra DO, resident. SECOND SENIOR RISK MANAGER: Carlos Cisneros DO, resident. ANESTHESIA: General anesthetic. She has been on scheduled antibiotics preoperatively, but did have 2 grams Ancef during surgery, IV. ESTIMATED BLOOD LOSS: 25 mL. COMPLICATIONS: She has no complications. SPECIMENS: Bone biopsy from the proximal tibia over the corresponding tibial lesion site. GROSS FINDINGS: Prior to her surgery, she did have that open tibia fracture stated above with the application of external fixator and the CT scan clearly correlates with a proximal tibia fracture. The patient was elected to potentially be transferred to to have Dr. De La Fuente, who she [place] [address] OPERATIVE REPORT Name: KULWANT CASTRO Room: [address] IN [facility].#: [id number] Admission: 03/03/20 Attend Phys: Deborah Wayne MD Discharge: Date of : 52 Report #: [id number] worked on her for other lesions, but at this time upon apparently him reviewing it, he thought this was not an aggressive lesion that required his care. At this state, following the open fracture, it was elected by Orthopedics then to again, since this was an open fracture, washed it out again or irrigate it and debride it. Number 2, do a bone biopsy so we know what the lesion entails if it is benign and/or not. The patient then would have the delayed closure and/or wound VAC placement today. SURGERY IN DETAIL: The patient was taken to the operating room and placed on table, given the benefit of a Hibiclens scrub and sterile draping for her left lower extremity. Timeout was called and verified by everyone in the room for the lower extremity surgery. At this point in time, 2 small sutures were now removed from the previous surgical site, subcutaneous tissues. We did go easily visibly, by finger palpation, identified the distal and the proximal tibia ends. These were copiously irrigated with 3000 mL of normal saline and then using a curette and a rongeur, bone biopsy was performed of this tibia region. The patient's surgery continued with now a delayed closure using 0 Vicryl in a [id number] fashion, well across most of the surgical site with just the most medial area not being totally able to be closed, but opening it approximately 1-1.5 cm. At this point in time now, a Xeroform wet to dry 4 x 4s, Kerlix, ABD type dressing with Chuckie wraps was applied. There were definitely no erythematous areas anywhere on this leg, post-debridement of this extremity. Her calf remained soft on palpation post-surgery as well and she was taken to recovery in stable condition. I attest I was present for all critical aspects of surgery. Needle, instrument, sponge counts correct. <ELECTRONICALLY SIGNED> By: Alcon Ward DO 03/09/20 0701 [id number] Ward DO /tatyana
[2020-03-09 08:10] VITALS: BP 132/63
--- NOTE | 2020-03-09 16:00 | NUR ---
WOUND NURSE: IVAN NOEL, PATIENT TO HAVE DRESSING CHANGE STARTING TOMORROW WITH WET TO DRY DRESSING CHANGES. WILL DEFER PATIENT UNTIL TOMORROW.
--- NOTE | 2020-03-09 16:05 | NUR ---
SW continuing to follow and assist with safe dc planning. Pt preference for inpt rehab at [facility] and pt ready to dc pending inpt rehab to accept. SW spoke with Rebeka, rehabilitation services director in the morning and then again in the afternoon about status of referral, Dr Escalera was unable to see pt today and also review of recent therapy notes in order to determine if able to accept to inpt rehab today or tomorrow. SW to continue to follow.
[2020-03-09 17:21] VITALS: BP 117/40
--- NOTE | 2020-03-09 18:03 | NUR ---
PATIENT RESTING IN BED. PATIENT DENIES ANY PAIN. PATIENT WORKED WITH THERAPY THIS AFTERNOON. AWAITING ADMISSION INTO REHAB. PATIENT IS NON-WEIGHT BEARING TO LEFT LEG. EXTERNAL FIXATOR IN PLACE WITH DRESSING CLEAN/DRY AND INTACT. PATIENT HAS GOOD APPETITE. PATIENT DENIES ANY NEEDS AT THIS TIME. CALL LIGHT WITHIN REACH. WILL CONTINUE TO MONITOR.
--- NOTE | 2020-03-09 18:08 | PATH ---
[address] [address] PATHOLOGY RPT PROCEDURE Name: MARISABEL CASTRO Room: [facility] IN .R.#: [id number] Admission: 03/03/20 Date of : 52 Discharge: Report #: [id number] Path Case #: [id number] [facility] Accession Number: [id number] . 01 Material submitted: . tibia - BONE BIOPSY LEFT TIBIA. Modifiers: left . 01 Clinical history: . Open left tibia fracture with tibial bone lesion; fall . 02 Diagnosis: Bone biopsy left tibia: - Benign and viable cancellous bone fragments in association with organizing hematoma. (KVNG:jose; 03/09/2020) MBR 03/09/2020 1712 Local . 02 Electronically signed: . Angel Angulo MD, Pathologist NPI- [id number] . 01 Gross description: . The specimen is received in formalin, labeled "Marisabel Castro, bone biopsy left tibia". Received is pink-kellogg possible friable material admixed with multiple fragments of pink-kellogg bone measuring 2.2 x 1.3 x 0.5 cm in aggregate dimensions. The specimen is filtered and entirely submitted in cassette A1, following decalcification. (CAA; 03/08/2020) QAC/QAC 03/09/2020 1711 Local . 02 Pathologist provided ICD-10: S82.202A . 02 CPT . 995281, [id number] Specimen Comment: A courtesy copy of this report has been sent to [phone], [phone] Specimen Comment: [phone], Specimen Comment: Report sent to ,DR REYES / PRIMO Performed at: [address], [place] [id number] MD Santy Perez MD Phone: [phone] Performed at: [address] [address] [place], [place] [id number] MD Angel Angulo MD Phone: [phone]
--- NOTE | 2020-03-09 18:30 | NUR ---
ATTEMPTED WOUND CARE AND DRESSING CHANGE TO LEFT LEG THIS EVENING. PATIENT HOWEVER REFUSED AND WANTED TO WAIT TO BE SEEN BY WOUND CARE NURSE TOMORROW.
[2020-03-09 20:22] VITALS: BP 108/44
--- NOTE | 2020-03-10 05:40 | NUR ---
ALERT AND ORIENTED X4, BEDREST, ROOM AIR. FIXTATION DEVICE ON LEFT LEG. REPORTED PAIN 5/10 RECEIVED SCHEDULED MEDS AND PAIN MEDICATION, ABX. NON WB TO LEFT EXTREMETY. SLEPT WELL THROUGH THE NIGHT. WOUND CARE NURSE TO SEE TODAY (FRIDAY) ON LEFT LEG PIN CARE AND WOUND. WILL CONTINUE TO MONITOR.
[2020-03-10 07:25] VITALS: BP 101/48
[2020-03-10] MEDS ORDERED: OXYCODONE HCL 55 MG PO (08:53)
[2020-03-10 09:07] VITALS: BP 101/48
--- NOTE | 2020-03-10 15:37 | NUR ---
WOUND NURSE: PATIENT SEEN TO ADDRESS LLE OPEN SURGICAL WOUND. CONTACTED DR. MARA DO AND RECEIVED ORDERS TO CHANGE DRESSING DOCUMENTED TO POST SURGICAL SITE. ALSO PROVIDED PIN CARE, BUT USED STERILE SALINE AND GAUZE BECAUSE H2O2 WAS NOT AVAILABLE. LLE IS WITH LARGE AMOUNT OF DRIED SANGUINOUS DRAINAGE, NO REDNESS, WARMTH OR SIGNIFICANT PAIN. SWELLING IS MINIMAL. PINS ARE INTACT AND WITHOUT IDENTIFIED UNTOWARD S/S NOTED. WOUND WAS NOT MEASURED BECAUSE NO STERILE MEASURING DEVICE WAS AVAILABLE AT TIME OF THIS ASSESSMENT.
[2020-03-10 16:00] VITALS: BP 81/35
--- NOTE | 2020-03-10 16:04 | NUR ---
Pt accepted and will transition to inpt rehab unit today.
--- NOTE | 2020-03-10 17:51 | NUR ---
PT REMAINED ALERT AND ORIENTED. PT RESTING IN BED, PT WORKED WITH THERAPY. PT TO TRANSFER TO PATIENT TO REHAB TODAY. PAIN MEDS GIVEN ORDERED. FALL RISK PRECAUTIONS IN PLACE. HOURLY ROUNDING COMPLETED. WILL CONTINUE TO MONITOR.
[2020-03-10 18:22] VITALS: BP 101/48
[2020-03-10 18:57] VITALS: BP 101/48
--- NOTE | 2020-03-20 09:51 | OP ---
[address] [address] OPERATIVE REPORT Name: KULWANT CASTRO Isabel Room: [address] IN .#: [id number] Admission: 03/03/20 Attend Phys: Deborah Wayne MD Discharge: 03/10/20 Date of : 52 Report #: [id number] THIS REPORT FOR: //name// cc: Jolie Carvajal Angela Jo RNP ~ THIS REPORT FOR: //name// CC: Jolie Wayne DICTATED BY: Manuel Blackman DO DATE OF SERVICE: 03/03/2020 PREOPERATIVE DIAGNOSIS: Grade 3 open left proximal tibial metadiaphyseal fracture. POSTOPERATIVE DIAGNOSIS: Grade 3 open left proximal tibial metadiaphyseal fracture. PROCEDURE PERFORMED: 1. Irrigation and debridement of open left proximal tibial shaft fracture with application of multiplane knee spanning external fixator. 2. Wound VAC application, left leg wound approximately 15 cm to the bone. SURGEON: Jose Maldonado DO. ASSISTANTS: 1. Manuel Blackman DO. 2. Matthias Elaine DO ANESTHESIA: General. ESTIMATED BLOOD LOSS: 200 mL. SPECIMENS: None. ANTIBIOTICS: 3 grams Ancef IV. COMPLICATIONS: None. CONDITION: The patient is stable to PACU. INDICATIONS: The patient is a 69-year-old female who was admitted to inpatient rehab at [facility]. She did attempt to walk today and had a fall, suffering a large wound to the anterior aspect of the left lower leg as [facility] [address] [place] [address] OPERATIVE REPORT Name: KULWANT CASTRO Isabel Room: [address] IN .R.#: [id number] Admission: 03/03/20 Attend Phys: Deborah Wayne MD Discharge: 03/10/20 Date of : 52 Report #: [id number] well as a left proximal tibial shaft fracture. She was seen in the Emergency Department and Ancef was started as prophylactic antibiotic medially. The decision was made to proceed to the operating room for formal irrigation, debridement as well as stabilization of the fracture. The risks, benefits, alternatives and complications of treatment were discussed in detail with the patient. We discussed that the prognosis is extremely guarded and there is significant complication rate with this type of injury with her comorbidities. These complications include infection, nonunion, malunion, excessive blood loss, multiple surgeries and ultimately a possible amputation of the left lower extremity. The patient understands these risks. DESCRIPTION OF PROCEDURE: The patient was taken to the operating room and placed supine on the operating table. She was given the benefit of general anesthesia. Left lower extremity was prepped and draped in the usual sterile fashion. Timeout was performed to verify the correct patient, procedure and operative extremity and all were in agreement. Procedure then began with debridement of the open fracture site. There was approximately 15 cm wound traveling transversely across the proximal tibia. There was exposed bone as well as tissues of the anterior compartment. This was irrigated with 9 liters of normal saline. Closure was attempted; however, the soft tissue status did not allow for any closure of the skin due to the very friable skin and soft tissues. This decision was made to proceed with a wound VAC application. Attention was then turned to the fracture. A knee spanning external fixator was placed. Two pins were placed into the anterior aspect of the distal femur. Fluoroscopy was used to verify the correct pin placement on AP and lateral fluoroscopic images. Attention was then turned to the tibia where 2 pins were then placed into the anterior aspect of the tibia just medial to the tibial crest. Again, fluoroscopy was used to verify the correct pin placement. The multiplanar spanning external fixator was then placed and provisionally tightened. The fracture was reduced with flexion and traction on the knee and reduction was confirmed under fluoroscopy. With the reduction held, the external fixator was then tightened to the final placement. Final fluoroscopic images confirmed reduction of the fracture site. The wound VAC was then applied to the wound to the anterior tibia. Sterile dressing of Xeroform, 4 x 4's, Kerlix and an Chuckie wrap was applied to the leg. The patient was awakened from anesthesia and was then transferred to the PACU in stable condition. POSTOPERATIVE PLAN: The patient will be admitted inpatient to the medical floor. She will continue to receive Ancef every 8 hours for prophylactic antibiotic. We will obtain a postoperative CT scan. We discussed with the patient and family the prognosis, which again is guarded. The patient and family understand this risk. <ELECTRONICALLY SIGNED> By: Clayton Gore DO 03/20/20 0951 [id number] Maldonado DO /tatyana
== END 2020-03-10 18:58 | DRG 477 ==
LOC: M.ERS 14:47 → M.TBA-ER 16:15 → M.3W 16:15
PROVIDERS: Family Medicine; Internal Medicine; Orthopaedic Surgery; ADMIT Internal Medicine
PROC: 0QSH35Z Reposition Left Tibia with External Fixation Device, Percutaneous Approach (ICD-10-PCS; principal; 2020-03-03)
PROC: 0QBH0ZX Excision of Left Tibia, Open Approach, Diagnostic (ICD-10-PCS; 2020-03-08)
DX: M80.062A Age-related osteoporosis with current pathological fracture, left lower leg, initial encounter for fracture (principal); J96.21 Acute and chronic respiratory failure with hypoxia; J84.9 Interstitial pulmonary disease, unspecified; E24.9 Cushing's syndrome, unspecified; Z68.42 Body mass index [BMI] 45.0-49.9, adult; S81.812A Laceration without foreign body, left lower leg, initial encounter; M06.9 Rheumatoid arthritis, unspecified; G89.4 Chronic pain syndrome; R53.81 Other malaise; G47.33 Obstructive sleep apnea (adult) (pediatric); D64.9 Anemia, unspecified; M12.80 Other specific arthropathies, not elsewhere classified, unspecified site; E66.01 Morbid (severe) obesity due to excess calories; I10 Essential (primary) hypertension; Z79.82 Long term (current) use of aspirin; Z88.8 Allergy status to other drugs, medicaments and biological substances; Z79.899 Other long term (current) drug therapy; Z79.891 Long term (current) use of opiate analgesic; W18.39XA Other fall on same level, initial encounter; Y93.01 Activity, walking, marching and hiking; Y92.89 Other specified places as the place of occurrence of the external cause; Y99.8 Other external cause status

== ENCOUNTER 2020-03-10 19:09 | Inpatient (IN) | payer MEDICARE ==
[~2020-03-10] VITALS: Ht 152.4 cm; Wt 153.4 kg
[2020-03-10 19:00] VITALS: BP 102/35
[~2020-03-10 19:09] MED LIST changes: +COLACE100 MG PO; +MIRALAX119 GM PO; +OXYCODONE HCL 55 MG PO; +TRAZODONE 150150 M1 PO
--- NOTE | 2020-03-10 22:20 | NUR ---
PATIENT ARRIVED ON DAY SHIFT AT 1855. IN BED LAYING ON RIGHT SIDE. THE ONLY SIDE PATIENT WILL AGREE TO LAY ON. SAE WRAP AROUND LEFT LEG DRY/INTACT. PINS IN LEFT LEG INTACT. PACHECO TO DEPENDENT DRAINAGE WITH YELLOW URINE. IN GOOD SPIRITS. STATES THE SCHEDULED OXYCONTIN IS ALL SHE NEEDS TO CONTROL HER PAIN. REHAB ADMISSION TOOL COMPLETED. PATIENT WAS ADMITTED WITH THE DIAGNOSIS OF LEFT OPEN TIB/FIB FX. THE FRACTURE OCCURED WHEN PATIENT WAS PREVIOUSLY A PATIENT ON REHAB DURING THERAPY. CALL LIGHT WITHIN REACH.
[2020-03-11 04:30] LABS: HEMATOCRIT 25.9 % (37.0-47.0); HEMOGLOBIN 8.5 gm/dL (12.0-15.0); MCH 30.5 pg (26.0-34.0); MCHC 32.8 g/dL (28.0-37.0); MCV 93.1 fL (80.0-100.0); MPV 9.3 fl. (7.2-11.1); RBC 2.79 mil/uL (4.20-5.00); RDW-CV 15.9 % (10.5-14.5); WBC 10.1 thou/uL (4.0-11.0)
[2020-03-11 04:44] LABS: CALCIUM 8.1 mg/dL (8.5-10.1); CREATININE 1.5 mg/dL (0.6-1.3); POTASSIUM 4.4 mmol/L (3.5-5.1)
--- NOTE | 2020-03-11 06:29 | NUR ---
RESTED QUIETLY SINCE ABOUT 0030. NO COMPLAINTS VOICED. HOURLY ROUNDING IN PROGRESS.
[2020-03-11 07:45] VITALS: BP 137/52
--- NOTE | 2020-03-11 09:54 | NUR ---
Nutrition: Pt admitted to Rehab s/p tib/fib FX and open surgical wound. Spoke with RN, pt is apparently eating well. Regular diet. Labs: albumin 2.8, prealb 18.6. Wt recorded as 315# today. Low risk. Will follow weekly.
--- NOTE | 2020-03-11 17:40 | NUR ---
ALERT AND ORIENTED X4. DENIES NEED FOR EXTRA PRN PAIN MEDICATION, HAS SCHEDULED PAIN MEDICATION. HAS PACHECO CATHETER PATENT WITH CLEAR YELLOW URINE. EXTERNAL FIXATORS REMAIN IN PLACE WITH DRESSINGS DONE ORDERED AROUND PINS. LEFT TOES WARM AND PINK WITH GOOD CAPILLARY REFILL. UP TO W/C WITH 3 ASSIST, GAIT BELT AND SLIDE BOARD. REMAINS NONWEIGHTBEARING TO LEFT LOWER EXTREMITY. USES CALL LIGHT WITHIN REACH. FALL PRECAUTIONS IN PLACE, BED ALARM AND CHAIR ALARMS USES.
[2020-03-11 19:30] VITALS: BP 92/67
--- NOTE | 2020-03-11 19:30 | NUR ---
IN SEMIFOWLER'S IN BED WATCHING TV. IN GOOD SPIRITS. VERY TALKATIVE AND PLEASANT. PINS IN LEFT LEG INTACT. CALL LIGHT WITHIN REACH.
--- NOTE | 2020-03-12 05:41 | NUR ---
RESTED QUIETLY WITH CPAP. PACHECO TO DEPENDENT DRAINAGE WITH YELLOW URINE. HOURLY ROUNDING IN PROGRESS.
[2020-03-12 08:00] VITALS: BP 98/53
--- NOTE | 2020-03-12 18:29 | NUR ---
PATIENT HERE FOR TIB/FIB FX REQUIRING EXTERNAL FIXATION. A&OX4. VSS. LSCTA. PATIENT ON RA. LAST BM WAS 03/11/2020 PER PATIENT. PATIENT HAS PACHECO CATHETER. EMPTIED 800ML AT END OF SHIFT. CRISTHIAN-CARE COMPLETE. BED CHANGE COMPLETE. DOPPLER COMPLETED ON LEFT LEG AND DRESSING CHANGE. PICTURES ARE IN CHART. PATIENT HAS A 20G IV L WRIST. STAFF ATTEMPTED TO GET PATIENT OUT OF BED AND TO CHAIR, BUT UNSUCCESSFUL WITH 3 STAFF MEMBERS. PATIENT IN BED, IN LOWEST LOCKED POSITION. CALL LIGHT IN REACH. PATIENT IS A DNR.
[2020-03-12 21:47] VITALS: BP 122/50
--- NOTE | 2020-03-13 02:29 | NUR ---
ASSUMED CARE @ 1929-03/12-SUN.AWSAKE IN BED W/ HOB UP WATCHING TV.EXTERNAL FIXATOR DEVICE IN PLACE LEFT LE.LEFT LE W/ SAE BANDAGE.PACHECO CATHETER -PATENT. LEFT LE UP ON PILLOW.BED ALARM PUT ON @ 1929.SEE SCHEDULED PAIN MED @ 2138. SALINE LOCK LEFT FOREARM HAS GOOD BLOOD RETURN @ 2199 & FLUSHED GOOD.PATIENT PUT C PAP IND. @ 2240.ON HOURLY ROUNDS.
--- NOTE | 2020-03-13 05:23 | NUR ---
SLEPT LATE @ 2300 BUT SLEEPING GOOD ALL NIGHT.TOOK COOKIES & CRANBERRY JUICE X2 HS SNACKS.
[2020-03-13 08:00] VITALS: BP 132/51
[2020-03-13 08:15] LABS: HEMATOCRIT 28.3 % (37.0-47.0); HEMOGLOBIN 9.2 gm/dL (12.0-15.0)
[2020-03-13 08:25] LABS: CALCIUM 8.5 mg/dL (8.5-10.1); POTASSIUM 4.3 mmol/L (3.5-5.1)
--- NOTE | 2020-03-13 17:23 | NUR ---
ALERT AND ORIENTED X4. UP WITH 3 ASSIST GAIT BELT AND SLIDE BOARD TO W/C THIS AM. HAD DIFFICULTY USING SLIDE BOARD 3 ASSIST AND GAIT BELT GOING BACK TO BED PATIENT STATED SHE WAS TIRED. ATNJA LIFT USED WITHOUT DIFFICULT AND PATIENT PUT BACK TO BED. EXTERNAL PINS ON LEFT LEG TREATMENT DONE ORDERED. LEFT FOOT WARM AND PINK WITH GOOD CAPILLARY REFILL. ON SCHEDULED PAIN MEDICATION. PACHECO CATHETER PATENT WITH SOME SEDIMENT NOTED IN YELLOW URINE. USES CALL LIGHT WHEN NEEDING ASSIST. FALL PRECAUTIONS IN PLACE, BED ALARM AND CHAIR ALARM USED.
[2020-03-13 19:59] VITALS: BP 112/44
--- NOTE | 2020-03-14 00:38 | NUR ---
ASSUMED CARE AT 1930. PATIENT RESTING IN BED. STATES SHE USES RT LEG TO PUSH HERSELF UP AND SHE CHANGES POSITIONS BY HER SELF, REFUSING ASSISTANCE. TAKES PILLS WHOLE WITH WATER. LT LEG ELEVATED, SAE WRAP C/D/I. EXTERNAL FIXATORS INTACT. NURSING ASSISTED WITH SETTING UP CPAP, BUT PATIENT DID MOST OF THE WORK. NYSTATIN TO RT GROIN, USING INTERDRY AG TO SKIN FOLDS. SL TO LT FA INTACT. PACHECO DRAINING SOURAV URINE. ON SCHEDULED PAIN MEDS. CALL LITE IN REACH. BED ALARM ON. HOURLY ROUNDS CONTINUE.
--- NOTE | 2020-03-14 05:44 | NUR ---
RESTED IN BED MOST OF THE NIGHT. CHANGED POSITIONS IN THE BED PER SELF, REFUSING ASSISTANCE. NO C/O PAIN. HOURLY ROUNDS CONTINUE. BED ALARM ON. CALL LITE IN REACH.
[2020-03-14 09:21] VITALS: BP 115/58
--- NOTE | 2020-03-14 16:30 | NUR ---
Initial rehab assessment: Pt known to this SW due to pt previous inpt rehab stay and acute stay after fall and fracture. Pt lives at home alone. Pt has supportive sisters. Pt has RW, wc, [employer] phone system and necklace for her cell phone. Pt is current with [facility] . SW to follow up with pt and pt sister after team conference on Friday and will follow to assist with safe dc planning.
--- NOTE | 2020-03-14 16:39 | NUR ---
ASSUMMED CARE OF PT AT 0730, PT ALERT AND ORIENTED, PT TRANSFERS WITH LIFT DEVICE, PACHECO CATHETER DRAINING YELLOW URINE, TAKING FOOD AND FLUIDS WELL, C/O LEFT HIP PAIN, MEDICATED PER ORDER, DRESSING CHANGED AND PIN SITE CARE DONE TO LEFT LEG, WIGGLES TOES WELL, DENIES NUMBNESS OR TINGLING IN TOES, PARTICIPATED IN ALL THERAPIES, PT ASKED IF SHE WOULD LIKE FAMILY MEMBER CALLED WITH UPDATE AND PT STATED SHE UPDATES HER SISTERS FREQUENTLY AND JUST FINISHED TALKING WITH HER YOUNGEST SISTER AND NURSE DID NOT NEED TO CALL FAMILY, HOURLY ROUNDING COMPLETED, ASSESSMENT COMPLETE, WILL CONTINUE TO MONITOR.
[2020-03-14 19:25] VITALS: BP 109/44
--- NOTE | 2020-03-15 00:52 | NUR ---
ASSUMED CARE @ 1911-03/14-FRIDAY.AWAKE IN BED WATCHING TV.HOB UP.BED ALARM ON ALREADY @ 1911.EXTERNAL FIXATOR DEVICE IN PLACE LEFT LE.SAE WRAP LEFT LE. SEE SCHEDULED PAIN MANAGEMENT @ 2029.SALINE LOCK LEFT FOREARM HAS GOOD BLOOD RETURN & FLUSHED GOOD @ 2034.PATIENT PUTS C PAP BY SELF @ 2234.ON HOURLY ROUNDS.PACHECO CATHETER-PATENT.
--- NOTE | 2020-03-15 05:46 | NUR ---
SLEEPING SINCE 2300 W/ C PAP ON & SLEPT GOOD ALL NIGHT.TOOK CRANBERRY JUICE X2,JEREMIAH [employer] & SALVADOR.PUDDING HS SNACKS.
[2020-03-15 08:00] VITALS: BP 125/50
--- NOTE | 2020-03-15 16:19 | NUR ---
SW and Dr Escalera met with pt to review team conference summary and plan for reteam next Friday. Team anticipating possible need for SNF but recommending at least another week of therapies to work with wc level goals and progress towards safety and functioning with tasks. Pt in agreement with plan. SW called pt sister Chio and reviewed team conference summary and plans to reteam with possible need for SNF if pt is not ready/able to safely be at home alone. Pt sister agrees and said that she and her sisters have hinted at the possibility with pt but pt was not so sure except she said pt might agree to preference of [facility] if needed. SW to continue to follow to assist with safe dc planning.
[2020-03-15 16:47] VITALS: BP 98/47
--- NOTE | 2020-03-15 17:21 | NUR ---
ASSUMMED CARE OF PT AT 0730, PT ALERT AND ORIENTED, PT TRANSFERS PER TANJA LIFT, PT TAKING FOOD AND FLUIDS WELL, INCONTINENT OF LARGE AMOUNT OF STOOL, C/O LEFT LEG PAIN, MEDICATED PER ORDER WITH SCHEDULED MEDS, BUTTOCKS REDDENED, PT ENCOURAGED TO REPOSITION EVERY 2 HOURS BUT REFUSES FREQUENTLY, WAFFLE CUSHION IN CHAIR, THERAPIST WILL TAKE PT TO BONE DENSITY SCAN TOMORROW AND HELP WITH TRANSFER ONTO TABLE FOR EXAM, PACHECO PATENT AND DRAINING SOURAV URINE, PT HAS TALKED WITH BOTH OF HER SISTERS AND UPDATED THEM, AND STATED NURSE DID NOT NEED TO CALL THEM WITH UPDATE, PARTICIPATED IN ALL THERAPIES, HOURLY ROUNDING COMPLETED, ASSESSMENT COMPLETE, WILL CONTINUE TO MONITOR.
--- NOTE | 2020-03-15 19:25 | NUR ---
SITTING UP IN WHEELCHAIR ON WAFFLE CUSHION WATCHING TV. LEFT LEG ELEVATED. SAE WRAP AROUND LEFT LEG DRY/INTACT. PINS TO LEFT LEG INTACT. PACHECO TO DEPENDENT DRAINAGE WITH SOURAV URINE. SNACK PROVIDED. CALL LIGHT WITHIN REACH.
[2020-03-15 19:50] VITALS: BP 136/69
--- NOTE | 2020-03-16 05:09 | NUR ---
ASSISTED FROM WHEELCHAIR TO BED LAST NIGHT WITH ASSIST OF TANJA LIFT AND 3 HELPERS. HAD A LARGE BM PER BEDPAN. CRISTHIAN CARE GIVEN. PIN CARE DONE. RESTED QUIETLY SINCE ABOUT 2345. HOURLY ROUNDING IN PROGRESS.
[2020-03-16 08:00] VITALS: BP 118/50
--- NOTE | 2020-03-16 17:19 | NUR ---
AM ASSESSMENT AND VITAL SIGNS COMPLETED DOCUMENTED. PT IS PLEASANT AND COOPERATIVE, VERY MOTIVATED TO MAKE PROGRESS. BONE DENSITY TEST DONE THIS AM. FC TO DD WITH CLEAR YELLOW URINE OUTPUT. PIN CARE DONE, DRESSING CHANGE DUE TOMMORROW. FALL PRECAUTIONS AND HOURLY ROUNDING CONTINUE.
--- NOTE | 2020-03-16 18:54 | NUR ---
PT STATES DRESSING CHANGE SHOULD BE DONE TODAY, BRUSH HAND WILL DO IT.
[2020-03-16 20:00] VITALS: BP 117/44
--- NOTE | 2020-03-17 05:17 | NUR ---
ASSUMED CARES AT 1920. ALERT AND ORIENTED. PLEASANT. LLE EXTERNAL FIXATOR. NWB LLE. DRESSINGS TO LEG CHANGED. PROXIMAL PIN SITES NOTED TO BE MORE PINK PER PATIENT. SEROUS SANGUINOUS DRAINANGE TO WOUND. PACHECO CATHETER DD YELLOW URINE. USED BEDPAN FOR BM. CPAP AT NIGHT. CALL LIGHT IN REACH AND BED ALARM ON.
[2020-03-17 08:00] VITALS: BP 131/68
--- NOTE | 2020-03-17 14:34 | NUR ---
AM ASSESSMENT AND VITAL SIGNS COMPLETED DOCUMENTED. PT HAS PT, OT AND ST. DRESSING C/D/I TO LEFT LEG, NWB STATUS MAINTAINED. PAIN ADEQUATELY CONTROLLED WITH SCHEDULED OXY. FALL PRECAUTIONS AND HOURLY ROUNDING CONTINUE.
[2020-03-17 19:45] VITALS: BP 130/56
--- NOTE | 2020-03-18 05:32 | NUR ---
ASSUMED PT CARE AT 1930. PT ALERT AND ORIENTED X4, POLITE AND COOPERATIVE WITH CARES. LLE EXTERNAL FIXATOR. NWB LLE. PIN SITE CARE GIVEN. PIN SITES RED WITH MINIMAL DRAINAGE. PACHECO CATHETER TO DD DRAINING YELLOW URINE. HOME CPAP OVERNIGHT. USES CALL LIGHT APPROPRIATELY. CALL LIGHT AND FREQUENTLY USED ITEMS IN REACH. BED ALARM ON FOR SAFETY. HOURLY ROUNDING IN PROGRESS, WILL CONTINUE TO MONITOR.
[2020-03-18 08:44] VITALS: BP 129/52
[2020-03-18 12:08] LABS: ABSOLUTE BASOPHILS 0.1 thou/uL (0.0-0.2); ABSOLUTE EOSINOPHILS 0.2 thou/uL (0.0-0.7); ABSOLUTE LYMPHOCYTES 2.1 thou/uL (0.8-5.3); ABSOLUTE MONOCYTES 1.2 thou/uL (0.0-1.2); ABSOLUTE NEUTROPHILS 11.1 thou/uL (1.6-8.1); BASOPHILS 0.7 %; EOSINOPHILS 1.6 %; HEMATOCRIT 28.2 % (37.0-47.0); HEMOGLOBIN 9.3 gm/dL (12.0-15.0); LYMPHOCYTES 14.3 %; MCH 30.1 pg (26.0-34.0); MCHC 32.9 g/dL (28.0-37.0); MCV 91.7 fL (80.0-100.0); MONOCYTES 7.9 %; MPV 9.4 fl. (7.2-11.1); NUCLEATED RBCS 0 /100WBC; PLATELET COUNT* 285 thou/uL (150-400); POLYS 75.5 %; RBC 3.08 mil/uL (4.20-5.00); RDW-CV 15.2 % (10.5-14.5); WBC 14.7 thou/uL (4.0-11.0)
[2020-03-18 12:22] LABS: ALBUMIN 2.9 g/dL (3.4-5.0); CALCIUM 8.3 mg/dL (8.5-10.1); POTASSIUM 4.2 mmol/L (3.5-5.1); TOTAL BILIRUBIN 0.6 mg/dL (<0.1-1.0); TOTAL PROTEIN 6.9 g/dL (6.4-8.2)
[2020-03-18 12:31] LABS: URINE BILIRUBIN NEGATIVE (Negative); URINE BLOOD 3+ (Negative); URINE CLARITY CLOUDY; URINE COLOR YELLOW; URINE GLUCOSE-RANDOM NEGATIVE (Negative); URINE KETONES NEGATIVE (Negative); URINE NITRITE-REFLEX NEGATIVE (Negative); URINE PROTEIN 2+ (Negative); URINE SPECIFIC GRAVITY 1.025 (1.005-1.030)
[2020-03-18 12:33] LABS: URINE LEUKOCYTES-REFLEX 3+ (Negative)
[2020-03-18 12:56] LABS: URINE WBC-REFLEX >25 Many /HPF (0-5); WBC CLUMPS Many (None Seen)
[2020-03-18 12:57] LABS: BACTERIA-REFLEX >30 Many /HPF (None Seen); SQUAMOUS 4-10 Moderate /LPF (0-3)
[2020-03-18 12:58] LABS: CASTS None Seen /LPF (None Seen); CRYSTALS None Seen /LPF (None Seen); MUCUS None Seen strn/LPF (None Seen)
--- NOTE | 2020-03-18 17:04 | NUR ---
ASSUMMED CARE OF PT AT 0730, PT ALERT AND ORIENTED, PT C/O INCREASED PAIN IN LEFT LEG, LEFT THIGH NOTED TO BE REDDENED AROUND UPPER PIN SITES AROUND THIGH INTO GROIN, PT TEMP 100.4, DR CASILLAS NOTIFIED, ORDERS OBTAINED, DR RIOS AND ORTHO CONSULTED, IV STARTED IN LEFT HAND, DRESSING CHANGED, PIN SITE CARE DONE AND ORDER OBTAINED TO NOW DO PIN SITE CARE BID, LOWER PIN SITES INTACT, NO REDNESS, BOTH UPPER PIN SITES RED, UA COMPLETED AND PHYSICIAN NOTIFIED OF RESULTS, PACHECO PATENT AND DRAINING CLOUDY THICK URINE, PT STATES SHE FEELS "CRAPPY" TODAY, PT DID NOT WANT TO GET UP IN CHAIR THIS SHIFT, REPOSTIONED IN BED, PT HAS DECREASED APETITE TODAY, FLUID INTACT ENCOURAGED, CONTINUES TO HAVE LOW GRAD TEMP THRUOUT SHIFT, PINK AREA UNDER ABD PANNUS, NYSTATIN APPLIED, HOURLY ROUNDING COMPLETED, ASSESSMENT COMPLETE, WILL CONTINUE TO MONITOR.
[2020-03-18 19:45] VITALS: BP 133/61
--- NOTE | 2020-03-18 23:23 | NUR ---
ASSUMED CARE AT 1929. PATIENT RESTING IN BED. TAKES PILLS WHOLE A FEW AT A TIME. MAX ASSIST OF TWO FOR TURNS. PIN CARE DONE. UPPER PINS REDDENED, LOWER PINS WNL. NO DRAINAGE NOTED. IV LT HAND INFUSING VANCO AT THIS TIME. PACHECO DRAINING SOURAV URINE WITH SOME CLOUDINESS. LT HEEL OFFLOADED, REFUSES RT HEEL TO BE OFFLOADED. TEMP AT 1944 WAS 103.5, APAP GIVEN AFTER BLOOD CULTURES DRAWN. TEMP 103.0 AT 2039, 101.0 AT 2209. FLUIDS ENCOURAGED. HOURLY ROUNDS CONTINUE. BED ALARM ON. CALL LITE IN REACH.
--- NOTE | 2020-03-19 03:33 | NUR ---
TEMP AT 0315 WAS 100.7. PATIENT DECLINED OFFER OF TYLENOL. WATCHING TV AND PLAYING ON HER PHONE. LT THIGH AREA REMAINS REDDENED. NO DRAINAGE NOTED.
--- NOTE | 2020-03-19 05:49 | NUR ---
RESTED IN BED ALL SHIFT. THIS NURSE ENCOUARGED PATIENT TO TURN, BUT SHE PREFERRED LYING ON THE RIGHT SIDE AND SEMIFOWLERS. FELL ASLEEP BEFORE PUTTING ON CPAP, BUT APPEARED TO BE RESTING, AND NO SNORING RESPS HEARD. NO C/O PAIN. LLE UP ON PILLOW, WITH HEEL OFFLOADED. HOURLY ROUNDS CONTINUE. BED ALARM ON. CALL LITE IN REACH.
--- NOTE | 2020-03-19 07:06 | NUR ---
DR. ANTONIO JONES ([facility] RESIDENT) ROUNDED. SHE TOOK PICTURES OF THIGH TO SEND TO DR. JACOBSON FOR FURTHER ORDERS. DR. JONES ORDERED NPO UNTIL HEARING FROM ORTHO IN CASE ANYTHING WILL BE PLANNED THIS DAY.
[2020-03-19 07:39] VITALS: BP 125/50
--- NOTE | 2020-03-19 08:06 | CON ---
[address] [address] CONSULTATION Name: CASTROKULWANT J Room: [facility] IN .R.#: [id number] Admission: 03/10/20 Attend Phys: Higinio Escalera MD Discharge: Date of : 52 Report #: [id number] THIS REPORT FOR: //name// cc: Jolie Carvajal Angela Jo RNP ~ THIS REPORT FOR: //name// CC: Jolie Escalera INFECTIOUS DISEASE CONSULTATION REASON FOR EVALUATION: Nosocomial fevers. HISTORY OF PRESENT ILLNESS: Chart reviewed, patient examined. This is a 69-year-old woman with morbid obesity and hypertension, who was admitted in extremis after sustaining cardiac arrest on 02/12/2020. She has had extended course prior to that starting back in latter part of December and she was diagnosed and felt to have a coronavirus, although the testing was negative. She had extended period of time in the hospital. She subsequently improved. She has been in various facilities including rehab hospitals, ultimately was admitted here and was transferred to the rehabilitation unit, had spontaneous fracture of the proximal tibia, this was a compound process with requirement of external fixator which was placed roughly 2 weeks ago. Postop course has been generally not remarkable, over the course of last 24 hours, had developed increasing pain associated with the left thigh. They noted inflammatory surface signs of redness, heat, swelling and developed some systemic illness with temperature elevation to 100 this morning. She is not overtly toxic. Denies any significant pulmonary or gastrointestinal related complaints. She was empirically started on vancomycin. followup with Orthopedic Surgery evaluation is pending. ALLERGIES: LISTED TO ____, BETADINE, TAPE, BUDESONIDE, FORMOTEROL, CEFDINIR, DESCRIBED BLOODY DIARRHEA. CURRENT MEDICATIONS: Include Boniva, calcium carbonate, methotrexate, enoxaparin, cholecalciferol, sertraline, aspirin, pantoprazole, levothyroxine, ropinirole, hydroxychloroquine, oxycodone, gabapentin, levetiracetam, folic acid, saccharomyces, trazodone and fluticasone. PAST MEDICAL HISTORY: As described above, history of hypertension and left proximal tibial compound fracture. SOCIAL HISTORY: Nonsmoker, no ethanol, no illicit drug use. FAMILY HISTORY: [place] [address] CONSULTATION Name: MATTHEWKULWANT J Room: [address] IN [facility]#: [id number] Admission: 03/10/20 Attend Phys: Higinio Escalera MD Discharge: Date of : 52 Report #: [id number] REVIEW OF SYSTEMS: As above. PHYSICAL EXAMINATION: GENERAL: She is pleasant, alert, and cooperative. She is in [id number]-[id number] distress. She is obese, appears to be reasonably well nourished. VITAL SIGNS: Temperature 100.4, pulse 83, respirations 18, and blood pressure 129/52. SKIN: Warm, dry, no rash. She does have erythrodermic-type eruption to the proximal thigh consistent with cellulitis. HEENT: Normocephalic. Extraocular muscles intact. NECK: Supple. LUNGS: Generally clear to auscultation. Somewhat diminished at the bases. Few scattered crackles. HEART: Regular. I do not appreciate a murmur. ABDOMEN: Obese, soft, somewhat distended, and nontender. EXTREMITIES: Left thigh has an external fixator with a compression dressing, it is tender to touch. I do not appreciate any bullous lesions to the extent that I can see. GENITOURINARY AND RECTAL: Deferred. LABORATORY DATA: None recent. ASSESSMENT AND PLAN: Nosocomial fever and the patient has a compound fracture involving her left lower extremity with surface sign, suggest skin and soft tissue infection. At this point, she is not overtly toxic. Agree with vancomycin. Presume a Staph or strep etiology. Await Orthopedic Surgery evaluation. Removal of the dressing to see if there is any purulence to culture the ____ repeat imaging, perhaps and we will remove the fixator in a fairly short period, although she has got minimal symptomology. We will check urinalysis, chest x-ray. It is unclear to me why she is on hydroxychloroquine. At this point, we will discuss with Dr. Galeana some baseline labs to exclude other occult problems. <ELECTRONICALLY SIGNED> By: Chema Pearson MD 03/19/20 0806 [id number] Pearson MD /nt
--- NOTE | 2020-03-19 16:28 | NUR ---
ASSUMMED CARE OF PT AT 0730, PT ALERT, SLIGHTLY CONFUSED THIS AM, NOT REMENBERING WHAT HAPPENED DURING NIGHT, TEMP 99.3 THIS AM, UPPER PIN SITES REDDENED WITH REDNESS EXTENDING AROUND THIGH, PT WAS NPO UNTIL SEEN BY ORTHO, NPO STATUS REMOVED AND PT TOLERATED FOOD AND FLUIDS, SALINE LOCK PATENT TO LEFT HAND, PACHECO PATENT AND DRAINING SOURAV URINE, PT HAD MODERATE BM THIS SHIFT, PT REFUSED TO GET IN CHAIR THIS SHIFT STATING SHE WAS NOT FEELING GOOD BUT HAS WORKED WITH HER WEIGHTS IN BED, PT REPOSITIONED FOR SHORT PERIODS, BACK CARE GIVEM, PIN SITE CARE DONE X 1, PT COMPLAINS OF INCREASED TENDERNESS IN LEFT THIGH, MEDICATED PER ORDER, PT STATED SHE WOULD LET HER SISTERS KNOW ABOUT HER SET BACK WITH THE FEVER AND INFECTION, AND STATED NURSE DID NOT NEED TO CALL SISTER, HOURLY ROUNDING COMPLETED, ASSESSMENT COMPLETE, WILL CONTINUE TO MONITOR.
[2020-03-19 19:45] VITALS: BP 120/49
--- NOTE | 2020-03-19 22:09 | NUR ---
ASSUMED CARE AT 1930. PATIENT RESTING IN BED WITH LLE ELEVATED ON PILLOW. SAE WRAP AND DRESSINGS C/D/I. TAKES PILLS WHOLE A FEW AT A TIME WITH WATER. PACHECO DRAINING SOURAV URINE, PO FLUIDS ENCOUARGED. REFUSES TO TURN, BUT CLAIMS SHE REPOSITIONS HER BUTTOCKS OFTEN USING HER GOOD LEG. ON SCHEDULED PAIN MEDS, AND DENIES PAIN. LT HAND IV PAINFUL TO FLUSH, NO BLOOD RETURN, THEN DC'D. HOUSE SUP CALLED TO RESTART AFTER UNSUCCESSFUL ATTEMPT. TEMP 99.6. MORE ORIENTED TO STAFF CARING FOR HER (CONFUSED DAY NURSE WITH NIGHT NURSE LAST NOC) AND OVER IMPROVED MENTATION COMPARED TO LAST NOC WHEN SHE HAD FEVERS. LT THIGH REDDENED, NO CHANGE FROM LAST NOC. PIN CARE GIVEN. HOURLY ROUNDS CONTINUE. BED ALARM ON. CALL LITE IN REACH.
--- NOTE | 2020-03-19 23:32 | NUR ---
INDIA RN, INSERTED 20 G IV INTO RT HAND, FIRST TRY. IVPB INFUSING. ESSENCE STARTED AT 6404.
--- NOTE | 2020-03-20 05:37 | NUR ---
ASSISTED WITH CPAP AFTER VANCO INFUSION COMPLETED. SLEPT ALL NIGHT. PACHECO DRAINING SOURAV URINE. PREFERS TO SLEEP ON RIGHT SIDE, OTHERWISE DOES NOT TURN DESPITE EDUCATION. EXTERNAL FIXATOR INTACT. NO C/O PAIN. HOURLY ROUNDS CONTINUE. BED ALARM ON. CALL LITE IN REACH.
[2020-03-20 08:00] VITALS: BP 128/60
--- NOTE | 2020-03-20 15:23 | NUR ---
RIGHT BASILIC VESSEL ACCESSED FOR 4 FREENCH SINGLE LUMEN PICC. LINE PRE-TRIMMED TO 42 CM AND ADVANCED TO THE ZERO SANDI WITH NO RESISTANCE MET. UPPER ARM CIRCUMFERENCE ABOVE INSERTION SITE= 17 1/2". SHERLOCK AND 3CG CONFIRMATION OF TIP TERMINATION AT THE CAVOATRIAL JUNCTION APPRECIATED. GUIDEWIRE REMOVED, LINE FLUSHED AND INSERTION SITE DRESSED.
--- NOTE | 2020-03-20 18:00 | NUR ---
AM ASSESSMENT AND VITAL SIGNS COMPLETED DOCUMENTED. PICC PLACED IN RIGHT UPPER ARM, SINGLE LUMEN. VANC TROUGH THIS AM WAS 24, LOWER DOSE ADMINISTERED AT 1200. PT REQUIRES ASSIST OF 2-3 WITH SLIDEBOARD TRANSFERS. FALL PRECAUTIONS AND HOURLY ROUNDING CONTINUE. PT UPDATES HER SISTERS DAILY AND STATES THERE IS NO NEED FOR NURSING TO CONTACT THEM.
[2020-03-20 20:00] VITALS: BP 133/64
--- NOTE | 2020-03-21 05:06 | NUR ---
ASSUMED CARES AT 1920. ALERT AND ORIENTED. PLEASANT. SL PICC SARAH FLUSHING WELL WITH GOOD BLOOD RETURN. DRESSING TO LLE INTACT. PACHECO CATHETER DD DARK YELLOW URINE. STILL HAS LOW GRADE TEMP 99.3. CPAP AT NIGHT. CALL LIGHT IN REACH AND BED ALARM ON.
[2020-03-21 08:00] VITALS: BP 127/63
--- NOTE | 2020-03-21 08:08 | NUR ---
TREATMENT NOTE DATED 03/21 AT 9212 IS A LATE NOTE ENTERED FOR A TREATMENT ON 03/15 FROM [id number]
--- NOTE | 2020-03-21 18:30 | NUR ---
AM ASSESSMENT AND VITAL SIGNS COMPLETED DOCUMENTED. PIN CARE AND DRESSING CHANGE DONE. PT HAS HAD GOOD URINE OUTPUT. PT CONTINUES TO HAVE A LOW GRADE TEMP. IV VANC AND CEFEPIME GIVEN ORDERED.
[2020-03-21 20:00] VITALS: BP 125/70
--- NOTE | 2020-03-22 05:18 | NUR ---
ASSUMED CARES AT 1920. ALERT AND ORIENTED. PLEASANT. PACHECO CATHETER DD DARK YELLOW URINE. PIN CARE DONE TO LEFT LEG. SL PICC SARAH. SLEPT WELL.
[2020-03-22 08:00] VITALS: BP 133/66
--- NOTE | 2020-03-22 14:30 | NUR ---
LYLA and Dr Escalera met with pt to review team conference summary and plan for pt to transition to SNF pending surgery recommendations, possible surgery Friday?, and then SNF after surgery due to possibility that pt will remain non weight bearing status and needed extended rehab at SNF. Pt was disappointed that she would not be able to go to in rehab again but understood the limitations and said she would prefer for [facility]F because she did not want to go to a SNF away from [place]. LYLA called pt sister Chio and reviewed team conference summary and pending surgery and dc plans; pt family in agreement with plan and did not have any concerns or other questions at this time. SW to continue to follow to assist with safe dc planning.
[2020-03-22 15:04] LABS: URINE BLOOD 2+ (Negative); URINE CLARITY CLEAR; URINE COLOR YELLOW; URINE GLUCOSE-RANDOM NEGATIVE (Negative); URINE KETONES NEGATIVE (Negative); URINE LEUKOCYTES-REFLEX 1+ (Negative); URINE PROTEIN 2+ (Negative); URINE SPECIFIC GRAVITY >= 1.030 (1.005-1.030); URINE UROBILINOGEN 0.2 E.U./dl (0.2-1.0)
[2020-03-22 15:05] LABS: URINE BILIRUBIN 1+ (Negative); URINE NITRITE-REFLEX POSITIVE (Negative)
[2020-03-22 15:07] LABS: ICTOTEST (BILI CONFIRMATORY) Negative (Negative)
[2020-03-22 15:16] LABS: SQUAMOUS 4-10 Moderate /LPF (0-3); URINE WBC-REFLEX 6-15 Few /HPF (0-5)
[2020-03-22 15:17] LABS: BACTERIA-REFLEX >30 Many /HPF (None Seen); CASTS None Seen /LPF (None Seen); CRYSTALS None Seen /LPF (None Seen); URINE RBC 0-2 Rare /HPF (0-2); YEAST-REFLEX Present (None Seen)
--- NOTE | 2020-03-22 17:00 | NUR ---
ALERT AND ORIENTED X4. TRANSFERS WITH SLIDE BOARD GAIT BELT AND 3 ASSIST. ON SCHEDULED PAIN MEDICATION. PATIENT STATED PINK AREA BY TOP EXTERNAL FIXATOR PIN IS LOOKING BETTER. PIN DRESSING DONE ORDERED. CONTINUES ON IV ANTIBIODIC WITHOUT ADVERSE REACTIONS OR SIDE EFFECTS. DR AND PHARMACY WAS NOTIFIED EARLIER TODAY OF ELEVATED VANCO TROUGH LEVEL. PACHECO CATHETER REMAINS PATENT WITH SLIGHTLY CLOUDY YELLOW URINE. PATIENT REFUSED ASSIST WITH TURNING IN BED WHEN OFFERED, SHE SAYS SHE REPOSITIONS HERSELF. USES CALL LIGHT WITHIN REACH.. FALL PRECAUTIONS IN PLACE.
[2020-03-22 20:00] VITALS: BP 139/70
--- NOTE | 2020-03-23 06:24 | NUR ---
ASSUMED CARE AT 1920. ALERT AND ORIENTED. PLEASANT. HAD INCREASE IN PAIN TO LEFT LEG TONIGHT. PAIN MEDS GIVEN. NWB LLE. LEFT LEG EXTERNAL FIXATOR IN PLACE. PIN CARE COMPLETED. ERYTHEMA REMAINS AROUND PIN SITES EXTENDING TOWARD INNER THIGH. AFEBRILE. SL PICC SARAH. PACHECO CATHETER DD YELLOW URINE. SLEPT MOST OF THE NIGHT.
[2020-03-23 08:00] VITALS: BP 148/46
--- NOTE | 2020-03-23 16:25 | NUR ---
AM ASSESSMENT AND VITAL SIGNS COMPLETED DOCUMENTED. PT HAS COMPLETED ALL THERAPIES FOR TODAY AND IS RESTING IN BED WITH LEFT LEG ELEVATED ON PILLOWS. DRESSING WAS CHANGED EARLY THIS AM AND REMAINS C/D/I. DR MERCEDES JONES CALLED AND SAID DR MILES WILL RE EVALUATE NEXT WEEK BUT THERE WON'T BE ANY SURGERY TOMMORROW. PT AND DR MEREDITH INFORMED. PT WILL UPDATE HER SISTERS. FALL PRECAUTIONS AND HOURLY ROUNDING CONTINUE.
[2020-03-23 19:54] VITALS: BP 138/53
--- NOTE | 2020-03-23 23:56 | NUR ---
ASSUMED CARE AT 1930. PATIENT RESTING IN BED. EXTERNAL FIXATOR INTACT TO LLE. LLE ELEVATED ON PILLOWS. DRESSING INTACT. PIN CARE DONE TO BOTH DISTAL AND PROXIMAL PINS. DRESSING TO PROXIMAL PINS CHANGED. ERYTHEMA DECREASED FROM FRIDAY WHEN THIS NURSE LAST CARED FOR PATIENT. TAKES PILLS WHOLE WITH WATER A FEW AT A TIME. PATIENT APPLIES OWN CPAP. PACHECO DRAINING YELLOW URINE. ON SCHEDULED PAIN MEDS. NO C/O PAIN. ASSISTED WITH REPOSITIONING. HOURLY ROUNDS CONTINUE. BED ALARM ON. CALL LITE IN REACH.
--- NOTE | 2020-03-24 05:26 | NUR ---
SLEPT AFTER ABOUT 2230, WORE CPAP THROUGH THE NIGHT. TOLERATED IVPB AT 0200. PACHECO DRAINING 1075 OF YELLOW URINE. DENIES PAIN. HOURLY ROUNDS CONTINUE. BED ALARM ON. CALL LITE IN REACH.
[2020-03-24 07:53] VITALS: BP 151/62
--- NOTE | 2020-03-24 15:33 | NUR ---
SW faxed referral to pt preference of [facility] in preparation for possible dc next week, pt nurse informed SW yesterday that surgery was not planning on surgery for today; unknown when pt might have surgery at this point. SW to continue to follow to assist with safe dc planning.
--- NOTE | 2020-03-24 17:41 | NUR ---
ASSESSMENT COMPLETED DOCUMENTED THIS MORNING. PATIENT IS PLEASANT AND COOPERATIVE, VERY MOTIVATED TO CONTINUE AND IMPROVE. PARTICIPATING IN THERAPY AND PROGRESSING WELL. PAIN IS WELL MANAGED WITH CURRENT REGIMEN. BOWELS MOVED THIS MORNING WITH USE OF BEDPAN. PIN SITE CARE AND WOUND CARE PROVIDED WITH HEALING NOTED TO WOUND SITE ON LLE, MINIMAL PINKISH/REDDENED AREA NOTED TO UPPER PIN SITES.
[2020-03-24 19:32] VITALS: BP 151/55
--- NOTE | 2020-03-25 00:22 | NUR ---
ASSUMED CARE 1904-03/24-FRI.AWAKE IN BED WATCHING TV W/ HOB UP.PACHECO CATHETER-PATENT.EXTERNAL FIXATOR DEVICE LEFT LEG IN PLACE.BED ALARM PUT ON @ 1904.NWB LEFT LE OBSERVED.SLEEPING ALREADY @ 0 BUT AWAKENED TO PUT C PAP BY SELF.ON HOURLY ROUNDS.POSTAL SORTING OFFICER DOING ODD HOUR ROUNDS SINCE 0.
--- NOTE | 2020-03-25 05:35 | NUR ---
SLEEPING SINCE 2300 & SLEPT GOOD ALL NIGHT.PICC LINE HAS GOOD BLOOD RETURN @ 0205 & FLUSHED GOOD.TOOK ALL VANILLA PUDDINGS X2 HS SNACKS.
[2020-03-25 07:30] VITALS: BP 149/70
--- NOTE | 2020-03-25 18:52 | NUR ---
ALERT AND ORIENTED X4. USES SLIDE BOARD, GAIT BELT AND 2 ASSIST TO TRANSFER TO W/C TODAY. USES SCHEDULED PAIN MEDICATION TO CONTROL PAIN. TREATMENT DONE TO EXTERNAL FIXATORS ON LEFT LEG. LEFT TOES WARM AND PINK WITH GOOD CAPILLARY REFILL. CONTINUES ON IV ANTIBIODICS WITH NO ADVERSE REACTIONS OR SIDE EFFECTS. USES CALL LIGHT WHEN NEEDING ASSIST. FALL PRECAUTIONS IN PLACE. BED ALARM AND CHAIR ALARM USES. CATHFLO USED AND HELPFUL WITH GETTING BLOOD RETURN WITH PICC LINE. PACHECO CATHETER PATENT WITH CLEAR YELLOW URINE.
[2020-03-25 19:42] VITALS: BP 141/58
--- NOTE | 2020-03-26 00:46 | NUR ---
ASSUMED CARE @ 1921-03/25-SAT.AWAKE IN BED W/ HOB UP WATCHING TV.EXTERNAL FIXATOR DEVICE IN PLACE LEFT LE.PACHECO CATHETER-PATENT.WANTS ONLY LEFT LE UP ON PILLOW.C PAP PUT ON BY PATIENT HERSELF @ 2224.ON HOURLY ROUNDS.HEMATOLOGY SUPERVISOR DOING ODD HOUR ROUNDS @ 1900 & 2100.
--- NOTE | 2020-03-26 06:56 | NUR ---
SLEEPING SINCE 2200 & SLEPT GOOD ALL NIGHT. TOOK CRANBERRY JUICE 240 ML W/ ICE HS SNACKS.AWAKENED ONLY @ 0400 TO TURN.PICC LINE HAS GOOD BLOOD RETURN @ 0405 & FLUSHED GOOD.
[2020-03-26 09:00] VITALS: BP 150/79
--- NOTE | 2020-03-26 17:07 | NUR ---
ALERT AND ORIENTED X4. TRANSFERES WITH 2-3 ASSIST, GAIT BELT AND SLIDE BOARD. HAS PO SCHEDULED PAIN MEDICATION FOR PAIN. DRESSINGS DONE TO EXTERNAL FIXATORS AND WOUNDS ON LEFT LOWER LEG. CONTINUES ON IV ANTIBIODICS. LEFT TOES WARM AND PINK WITH GOOD CAPILLARY REFILL. FALL PRECAUTIONS IN PLACE, BED ALARM AND CHAIR ALARM USED. USES CALL LIGHT WHEN NEEDING ASSIST.
[2020-03-26 19:30] VITALS: BP 155/69
--- NOTE | 2020-03-27 01:39 | NUR ---
ASSUMED CARE @ 1914-03/26-FRIDAY.AWAKE IN BED W/ HOB UP.LEFT LE W/ EXTERNAL FIXATOR DEVICE IN PLACE.PACHECO CATHETER-PATENT.BED ALARM PUT ON @ 1914. TEMP @ -0RAL.TEMP RE-CHECKED @ -FRIDAY-98.7 ORAL.C PAP PUT ON BY PATIENT HERSELF @ 2245.ON HOURLY ROUNDS.
--- NOTE | 2020-03-27 05:15 | NUR ---
SLEPT LATE @ 2300 & SLEEPING GOOD ALL NIGHT.TOOK ALL 240 ML CRANBERRY JUICE W/ ICE HS SNACKS.PICC LINE HAS NO BLOOD RETURN @ 2120 BUT HAS BLOOD RETURN @ 0207.BOTH TIMES FLUSHED WELL.USED BEDPAN X2 FOR BM'S.CRISTHIAN CARE X2 AFTER BM'S.
[2020-03-27 07:49] VITALS: BP 171/66
[2020-03-27 09:00] VITALS: BP 171/66
--- NOTE | 2020-03-27 16:39 | NUR ---
ALERT AND ORIENTED X4. UP TO W/C WITH SLIDE BOARD, GAIT BELT AND 2-3 ASSIST. ON SCHEDULED PAIN MEDICATION. DRESSING CHANGED TO LEFT LEG. CONTINUES ON IV ANTIBIODICS WITH NO ADVERSE REACTIONS OR SIDE EFFECTS. LEFT FOOT WARM AND PINK AND HAS GOOD CAPILLARY REFILL. HAD LARGE BOWEL MOVEMENT IN BEDPAN THIS AM. USES CALL LIGHT WHEN NEEDING ASSIST. FALL PRECAUTIONS IN PLACE. BED ALARM AND CHAIR ALARM USED.
--- NOTE | 2020-03-27 18:37 | NUR ---
UNABLE TO GET BLOOD RETURN FROM PICC LINE. NEW ORDER FOR CATHFLO. WAITED FOR CATHFLO FROM PHARMACY. PHARMACY NOTIFIED STILL WAITING FOR CATHFLO. UNABLE TO CHART CATHFLO DUE TO ALREADY D/C. PHARMACY NOTIFIED NEEDS TO BE PUT PUT BACK IN.
[2020-03-27 20:20] VITALS: BP 127/43; BP 144/56
--- NOTE | 2020-03-27 21:39 | NUR ---
PATIENT HAS BEEN ON THE PHONE WITH HER FAMILY, NOTIFYING THEM OF HER STATUS AND THAT THE EXTERNAL FIXATOR WILL NOT BE COMING OFF THIS WEEK.
--- NOTE | 2020-03-28 00:06 | NUR ---
ASSUMED CARE AT 1930. PATIENT RESTING IN BED WITH LLE ELEVATED ON PILLOW. REFUSED PILLOW TO RIGHT HEEL. REFUSES CHANGING POSITIONS DESPITE EDUCATION STATING THAT SHE TURNS HERSELF IN BED. PIN CARE DONE AT HS. ERYTHEMA TO LT THIGH MUCH IMPROVED. PICC LINE TO RUE FLUSHES WELL AND HAS GOOD BLOOD RETURN. PATIENT SAD THAT SURGERY TO REMOVE EXTERNAL FIXATOR HAS BEEN DELAYED A COUPLE OF WEEKS. AFEBRILE THIS PM. HOURLY ROUNDS CONTINUE. BED ALARM ON. CALL LITE IN REACH.
--- NOTE | 2020-03-28 05:27 | NUR ---
SLEPT MUCH OF THE NIGHT WITH CPAP ON. PICC LINE FLUSHES WELL AND HAS GOOD BLOOD RETURN. HAD SMALL BM PER BEDPAN. SKIN CARE DONE. NO C/O PAIN.
[2020-03-28 07:44] VITALS: BP 149/70
[2020-03-28 08:06] VITALS: BP 149/70
[2020-03-28 08:40] LABS: HEMATOCRIT 25.7 % (37.0-47.0); HEMOGLOBIN 8.6 gm/dL (12.0-15.0); MCH 30.1 pg (26.0-34.0); MCHC 33.3 g/dL (28.0-37.0); MCV 90.4 fL (80.0-100.0); RBC 2.85 mil/uL (4.20-5.00); RDW-CV 15.2 % (10.5-14.5); WBC 8.3 thou/uL (4.0-11.0)
[2020-03-28 08:50] LABS: ALBUMIN 2.6 g/dL (3.4-5.0); CALCIUM 8.1 mg/dL (8.5-10.1); CREATININE 0.9 mg/dL (0.6-1.3); MAGNESIUM 1.9 mg/dL (1.8-2.4); PHOSPHORUS* 4.1 mg/dL (2.5-4.9); POTASSIUM 3.7 mmol/L (3.5-5.1)
[2020-03-28 19:00] VITALS: BP 130/61
--- NOTE | 2020-03-28 20:50 | NUR ---
IN SEMI-ALLAN'S IN BED WATCHING TV. IN GOOD SPIRITS. RIGHT THIGH PINK AND WARM TO TOUCH. LEFT LEG ELEVATED ON PILLOWS. CALL LIGHT WITHIN REACH. STATES LEFT LEG PAIN RATED "6". WILL CONTINUE TO MONITOR. SNACK PROVIDED.
--- NOTE | 2020-03-29 04:56 | NUR ---
FELL ASLEEP WATCHING THE TEN O'CLOCK NEWS. AWAKENED AT 0150 AND PLACED HER CPAP ON. GOOD BLOOD RETURN FROM RIGHT UPPER ARM SINGLE LUMEN PICC LINE. REFUSES TO ALLOW STAFF TO ASSIST HER WITH REPOSITIONING. PACHECO TO DEPENDENT DRAINAGE WITH YELLOW URINE. HOURLY ROUNDING IN PROGRESS.
[2020-03-29 08:03] VITALS: BP 146/68
--- NOTE | 2020-03-29 17:35 | NUR ---
LYLA and Dr Escalera met with pt and reviewed team conference summary and plan to reteam. Pt in agreement with plan and pleased to be able to continue therapies. SW to continue to follow to assist with safe dc planning. LYLA informed admissions at [facility] that inpt rehab reassessing so would reevaluate for SNF need once a dc date is known.
[2020-03-29 18:51] VITALS: BP 137/56
[2020-03-29 19:30] VITALS: BP 131/50
--- NOTE | 2020-03-29 23:42 | NUR ---
ASSUMED CARE AT 1930. PATIENT RESTING IN BED. ASSISTS WITH TURNS AND IS ABLE TO PULL HERSELF UP IN BED USING HAND HOLDS IN HOB. DRESSING TO LT LEG C/D/I. PACHECO DRAINING SOURAV URINE. TAKES PILLS WHOLE WITH WATER. PICC LINE TO SARAH D/I. PICC FLUSHES WELL WITH GOOD BLOOD RETURN. IVF INFUSED PER PUMP. LT LEG UP ON PILLOWS. ASSISTED WITH CPAP AT . HOURLY ROUNDS CONTINUE. BED ALARM ON. CALL LITE IN REACH.
--- NOTE | 2020-03-30 06:14 | NUR ---
SLEPT MUCH OF THE NIGHT EXCEPT WHEN GETTING IVABX. DRESSING TO PICC LINE CHANGED BY Dion GABRIEL WITH STERILE TECHNIQUE. TOLERATED WELL. NO C/O PAIN. ASSISTED WITH TURNS. PACHECO DRAINING SOURAV URINE. HOURLY ROUNDS CONTINUE. BED ALARM ON. CALL LITE IN REACH.
[2020-03-30 08:00] VITALS: BP 146/61
--- NOTE | 2020-03-30 12:07 | NUR ---
SW called pt sister and reviewed team conference summary and plan to reteam. Pt sister in agreement with plan and did not have any questions or concerns at this time.
--- NOTE | 2020-03-30 17:15 | NUR ---
ASSUMMED CARE OF PT AT 0730, PT ALERT AND ORIENTED, PT TRANSFERS WITH ASSIST OF 2, GB SLIDING BOARD, UP IN CHAIR MUCH OF DAY, WAFFLE CUSION ON CHAIR, PT ENCOURAGED TO REPOSTION EVERY 2 HOURS, PT HAD LARGE BM THIS SHIFT, PACHECO PATENT AND DRAINING SOURAV URINE, PT TAKING FOOD AND FLUIDS WELL, PIN SITE CARE DONE X1, UPPER PIN SITES HAVE YELLOW/WHITE DRAINAGE AROUND PIN, LOWER PIN SITES DRY, PARTICIPATED IN ALL THERAPIES, HOURLY ROUNDING COMPLETED, ASSESSMENT CONPLETE, WILL CONTINUE TO MONITOR. PT STATED SHE TALKED WITH HER OLDER SISTER TODAY AND NURSE DID NOT NEED TO CALL FAMILY WITH UPDATE.
[2020-03-30 20:00] VITALS: BP 133/55
--- NOTE | 2020-03-31 05:54 | NUR ---
ASSUMED CARES AT 1920. ALERT AND ORIENTED. PLEASANT. FEELS TIRED. SL PICC SARAH FLUSHES WITH GOOD BLOOD RETURN. EXTERNAL FIXATOR TO LLE. DRESSING INTACT. PACHECO CATHETER DD YELLOW URINE. CPAP AT NIGHT. SLEPT MOST OF THE NIGHT. CALL LIGHT IN REACH AND BED ALARM ON.
[2020-03-31 08:14] VITALS: BP 154/69
--- NOTE | 2020-03-31 17:03 | NUR ---
ALERT AND ORIENTED X4. UP WITH 2 ASSIST, GAIT BELT AND SLIDE BOARD. CONTINENT OF BOWEL MOVEMENT IN BEDSIDE COMMODE. PACHECO CATHETER PATENT WITH CLEAR YELLOW URINE. USES PO PAIN MEDICATION TO HELP WITH PAIN. DRESSING CHANGED ORDERED TO LEFT LEG WOUND AND EXTERNAL FIXATORS. PATIENT REPOSITIONS SELF IN BED, ASSISTED NEEDED. USES CALL LIGHT WHEN NEEDING ASSIST. FALL PRECAUTIONS IN PLACE, BED ALARM AND CHAIR ALARM USED.
--- NOTE | 2020-03-31 17:25 | NUR ---
CONTINUES ON IV ANTIBIODICS WITH NO ADVERSE REACTIONS.
[2020-03-31 19:55] VITALS: BP 138/38
--- NOTE | 2020-03-31 21:15 | NUR ---
SITTING UP IN BED CONSUMING APPLESAUCE AND JEREMIAH CRACKERS AND WATCHING TV. RATES LEFT LEG PAIN A "5". TAKES SCHEDULED PAIN MEDICATION. SAE WRAP AROUND LEFT LEG DRY/INTACT. PIN CARE DONE AROUND 4 INSERTION SITES OF EXTERNAL FIXATORS. PACHECO TO DEPENDENT DRAINAGE WITH YELLOW URINE. CALL LIGHT WITHIN REACH. LEFT LEG ELEVATED ON A PILLOW.
--- NOTE | 2020-04-01 04:30 | NUR ---
RESTED QUIETLY. HAD CPAP ON SINCE 0200. GOOD BLOOD RETURN FROM RIGHT UPPER ARM SINGLE LUMEN PICC. HOURLY ROUNDING IN PROGRESS.
[2020-04-01 09:00] VITALS: BP 139/70
--- NOTE | 2020-04-01 18:35 | NUR ---
AM ASSESSMENT AND VITAL SIGNS COMPLETED DOCUMENTED. PT HAD HER LAST DOSE OF CEFEPIME THIS AM BUT CONTINUES ON THE VANC, NEXT TROUGH TO BE DRAWN SUN AT 1330. PICC LINE DRESSING C/D/I. DRESSING TO LEFT LEG C/D/I. PT HAS UPDATED HER SISTERS. FALL PRECAUTIONS AND HOURLY ROUNDING CONTINUE.
[2020-04-01 20:04] VITALS: BP 132/38
--- NOTE | 2020-04-01 20:30 | NUR ---
PATIENT SITTING UP IN BED ON CELL PHONE AND WATCHING TV. PIN CARE COMPLETED. SAE WRAP AROUND LEFT LEG DRY/INTACT. REDNESS NOTED ON LEFT THIGH AND AROUND PIN INSERTION SITES. NO DRAINAGE NOTED. SNACK PROVIDED. CALL LIGHT WITHIN REACH.
--- NOTE | 2020-04-02 04:35 | NUR ---
RESTED QUIETLY WITH CPAP. REMAINS ON IV VANCOMYCIN. GOOD BLOOD RETURN FROM RIGHT UPPER ARM SINGLE LUMEN PICC LINE. HOURLY ROUNDING IN PROGRESS.
[2020-04-02 07:44] VITALS: BP 128/55
--- NOTE | 2020-04-02 15:29 | NUR ---
AM ASSESSMENT AND VITAL SIGNS COMPLETED DOCUMENTED. PT HAD A LARGE BM THIS AM, FC TO DD WITH CLEAR YELLOW URINE OUTPUT. VANC TROUGH DRAWN PRIOR TO 1400 DOSE WAS 14, NO CHANGE IN DOSEAGE. PT CONTINUES TO UPDATE HER SISTERS ON HER PROGRESS AND PLAN OF CARE. FALL PRECAUTIONS AND HOURLY ROUNDING ALSO CONTINUE.
[2020-04-02 19:30] VITALS: BP 130/51
--- NOTE | 2020-04-02 20:20 | NUR ---
IN SEMI-FOWLERS IN BED WATCHING TV. IN GOOD SPIRITS. LEFT LEG ELEVATED ON A PILLOW. STATES LEFT LEG PAIN AT A "5". PATIENT STATES PAIN IS CONTROLLED WITH SCHEDULED PAIN MEDICATION. CALL LIGHT WITHIN REACH. DECLINED OFFER OF A SNACK. PACHECO TO DEPENDENT DRAINAGE WITH YELLOW URINE.
--- NOTE | 2020-04-03 04:52 | NUR ---
RESTED QUIETLY WITH CPAP. PICC LINE INTACT WITH GOOD BLOOD RETURN. HOURLY ROUNDING IN PROGRESS.
[2020-04-03 06:22] VITALS: BP 156/75
[2020-04-03 07:44] VITALS: BP 156/75
[2020-04-03 08:07] LABS: ABSOLUTE BASOPHILS 0.1 thou/uL (0.0-0.2); ABSOLUTE EOSINOPHILS 0.6 thou/uL (0.0-0.7); ABSOLUTE LYMPHOCYTES 2.6 thou/uL (0.8-5.3); ABSOLUTE MONOCYTES 0.7 thou/uL (0.0-1.2); ABSOLUTE NEUTROPHILS 3.9 thou/uL (1.6-8.1); BASOPHILS 1.4 %; EOSINOPHILS 7.5 %; HEMATOCRIT 26.8 % (37.0-47.0); HEMOGLOBIN 8.8 gm/dL (12.0-15.0); LYMPHOCYTES 32.9 %; MCH 29.9 pg (26.0-34.0); MCHC 32.8 g/dL (28.0-37.0); MCV 91.2 fL (80.0-100.0); MPV 8.7 fl. (7.2-11.1); NUCLEATED RBCS 0 /100WBC; PLATELET COUNT* 264 thou/uL (150-400); POLYS 49.2 %; RBC 2.93 mil/uL (4.20-5.00); RDW-CV 15.7 % (10.5-14.5); WBC 7.9 thou/uL (4.0-11.0)
[2020-04-03 08:27] LABS: ALBUMIN 2.6 g/dL (3.4-5.0); CALCIUM 8.7 mg/dL (8.5-10.1); CREATININE 0.8 mg/dL (0.6-1.3); POTASSIUM 3.6 mmol/L (3.5-5.1); TOTAL BILIRUBIN 0.3 mg/dL (<0.1-1.0); TOTAL PROTEIN 6.1 g/dL (6.4-8.2)
--- NOTE | 2020-04-03 18:18 | NUR ---
ALERT AND ORIENTED X4. UP WITH SLIDE BOARD, GAIT BELT AND 2 ASSIST. ON SCHEDULED [employer] MEDICATON. HAS PACHECO CATHETER PATENT WITH CLEAR YELLOW URINE. CONTINENT OF BOWELS. CONTINUES ON IV ANTIBIODIC WITH NO ADVERSE REACTIONS. EXTERNAL FIXATOR PINS DRESSING CHANGE DONE ORDERED. REMAINS NONWEIGHT BEARING TO LEFT LEG. USES CALL LIGHT WHEN NEEDING ASSIST. FALL PRECAUTIONS IN PLACE. BED ALARM AND CHAIR ALARM USED.
[2020-04-03 19:30] VITALS: BP 138/42
--- NOTE | 2020-04-04 05:34 | NUR ---
ASSUMED CARES AT 1920. ALERT AND ORIENTED. PLEASANT. DENIED ANY SOA. ON ROOM AIR. TEMP: 99.2. ENCOURAGED USE OF INCENTIVE SPIROMETER. PIN CARE DRESSING CHANGED. ONE PIN SITE NOTED TO BE RED. TINY AMT OF YELLOW DRAINAGE. PACHECO CATHETER DD DARK YELLOW URINE. SL PICC SARAH FLUSHING WITH GOOD BLOOD RETURN. SLEPT MOST OF THE NIGHT. CALL LIGHT IN REACH AND BED ALARM ON.
[2020-04-04 07:30] VITALS: BP 115/71
--- NOTE | 2020-04-04 11:18 | EKG ---
[place] [address] ELECTROCARDIOGRAM REPORT Name: CASTROKULWANT Room: M320W ADM IN .R.#: [id number] Admission: 03/10/20 Attend Phys: Higinio Escalera MD Discharge: Date of : 52 Date of Service: 04/04/20 0619 Report #: [id number] THIS REPORT FOR: //name// [facility] Test Date: 2020-04-04 Test Time: 06:19:31 Pat Name: KULWANT CASTRO Department: Room: [address] Gender: F Dental Appliance Repairer: RUFINO : 1950 Requested By: Richard Buck Order Number: [id number] Cheryl MD: Velasquez Sanders Measurements Intervals [place] Rate: 74 P: 18 FL: 192 QRS: 18 QRSD: 99 T: 28 QT: 403 QTc: 448 Interpretive Statements Sinus rhythm Probable left atrial enlargement Low voltage, extremity leads Compared to ECG 03/03/2020 15:43:43 no change Electronically Signed On 04-04-2020 11:17:48 CDT by Velasquez Sanders [email or web address] <ELECTRONICALLY SIGNED> By: Velasquez Sanders MD, [facility] 04/04/20 1117 0619 8 Velasquez Sanders MD, [facility] /EPI
--- NOTE | 2020-04-04 16:08 | NUR ---
PATIENT UP TO WHEELCHAIR, THERAPIES COMPLETED. REMAINS NWB ON LEFT LEG. DRESSING TO CALF WOUND AND PIN CARE DONE THIS AM ORDERED. RIGHT PICC FLUSHING AND GOOD BLOOD RETURN NOTED, SCHED VANC GIVEN ORDERED. NO COMPLAINTS OF PAIN THIS SHIFT.
[2020-04-04 20:00] VITALS: BP 131/40
--- NOTE | 2020-04-05 04:15 | NUR ---
ASSUMED CARES AT 1920. ALERT AND ORIENTED. PLEASANT. CPAP AT NIGHT. PINSITE DRESSING CHANGE COMPLETED. PACHECO CATHTER DD DARK YELLOW URINE. SL PICC SARAH FLUSHING WITH GOOD BLOOD RETURN. NO ISSUES OVERNIGHT. CALL LIGHT IN REACH AND BED ALARM ON.
[2020-04-05 08:00] VITALS: BP 127/51
--- NOTE | 2020-04-05 14:11 | NUR ---
AM ASSESSMENT AND VITAL SIGNS COMPLETED DOCUMENTED. PT HAS PARTICIPATED WITH ALL THERAPIES TODAY AND IS USING THE INCENTIVE SPIROMETER EVERY 1-2 HOURS. IV VANCOMYCIN CONTINUES, WILL ATTEMPT TO CLARIFY DURATION OF TREATMENT. FALL PRECAUTIONS AND HOURLY ROUNDING CONTINUE.
--- NOTE | 2020-04-05 16:54 | NUR ---
LYLA and Dr Escalera met with pt to review team conference summary and plan to reteam while discovering plan for possible surgery. Pt highly motivate to continue therapies and continue towards goals. SW to continue to follow to assist with safe dc planning.
[2020-04-05 19:20] VITALS: BP 127/58
--- NOTE | 2020-04-05 19:20 | NUR ---
AWAKAENED FOR HS REASSESSMENT. DENIES NEEDS. PACHECO TO DEPENDENT DRAINAGE WITH YELLOW URINE. LEFT LEG ELEVATED ON A PILLOW. CALL LIGHT WITHIN REACH.
[2020-04-06 07:15] VITALS: BP 132/64
--- NOTE | 2020-04-06 18:05 | NUR ---
AM ASSESSMENT AND VITAL SIGNS COMPLETED DOCUMENTED. PT CONTINUES TO MAKE PROGRESS WITH THERAPIES. IV VANCOMYCIN GIVEN ORDERED. PT STATES HER PAIN IS ADEQUATELY CONTROLLED WITH SCHEDULED MEDICATIONS. FC TO DD WITH STRAW COLORED URINE OUTPUT. PT TRANSFERS IN AND OUT OF BED WITH A SLIDE BOARD AND ASSIST OF TWO. PIN CARE AND DRESSING CHANGE TO LEFT LEG NOT DONE THIS SHIFT DUE TO TIME CONSTRAINTS.
[2020-04-06 19:15] VITALS: BP 131/54
--- NOTE | 2020-04-06 20:45 | NUR ---
DRESSING CHANGE AND PIN CARE DONE TO LEFT LEG. PATIENT SITTING UP IN BED WATCHING TV AND ON HER CELL PHONE. PACHECO TO DEPENDENT DRAINAGE WITH YELLOW URINE WITH SMALL AMOUNT OF SEDIMENT. PATIENT ALREADY HAD A SNACK AVAILABLE AND DECLINED OFFER OF MORE. CALL LIGHT WITHIN REACH.
--- NOTE | 2020-04-07 04:41 | NUR ---
RESTED QUIETLY. REMAINS ON IV VANCOMYCIN. HOURLY ROUNDING IN PROGRESS.
[2020-04-07 07:30] VITALS: BP 142/61
[2020-04-07 09:29] LABS: ABSOLUTE EOSINOPHILS 0.8 thou/uL (0.0-0.7); ABSOLUTE LYMPHOCYTES 4.1 thou/uL (0.8-5.3); ABSOLUTE MONOCYTES 0.6 thou/uL (0.0-1.2); ABSOLUTE NEUTROPHILS 5.2 thou/uL (1.6-8.1); BASOPHILS 0.4 %; EOSINOPHILS 7.2 %; HEMATOCRIT 32.3 % (37.0-47.0); HEMOGLOBIN 10.2 gm/dL (12.0-15.0); LYMPHOCYTES 38.1 %; MCH 29.2 pg (26.0-34.0); MCHC 31.7 g/dL (28.0-37.0); MCV 92.1 fL (80.0-100.0); MONOCYTES 5.5 %; MPV 8.7 fl. (7.2-11.1); NUCLEATED RBCS 0 /100WBC; PLATELET COUNT* 324 thou/uL (150-400); POLYS 48.8 %; RBC 3.51 mil/uL (4.20-5.00); RDW-CV 16.8 % (10.5-14.5); WBC 10.7 thou/uL (4.0-11.0)
[2020-04-07 09:32] LABS: pH 7.174 (7.340-7.450)
[2020-04-07 09:33] LABS: PCO2 74.2 mmHg (35.0-45.0); PO2 58.7 mmHg (75.0-100.0)
[2020-04-07 09:40] LABS: INR 1.1; PROTIME 10.9 Seconds (9.20-11.50)
[2020-04-07 09:43] LABS: ALBUMIN 3.3 g/dL (3.4-5.0); CALCIUM 9.1 mg/dL (8.5-10.1); CREATININE 0.9 mg/dL (0.6-1.3); POTASSIUM 3.8 mmol/L (3.5-5.1); TOTAL BILIRUBIN 0.3 mg/dL (<0.1-1.0); TOTAL PROTEIN 7.5 g/dL (6.4-8.2)
--- NOTE | 2020-04-07 12:15 | NUR ---
AT APROXIMATELY 0800 PATIENT RECEIVED A BREATHING TREATMENT. SHORTLY AFTER GETTING BREATHIING TREATMENT PATIENT C/O HAVING DIFFICULTY BREATHING. O2 SAT CHECKED AND 86%. O2 APPLIED AT 2L/NC. AND O2 SAT UP TO 91%, RT WAS CALLED AND NOTIFIED. PAGELucie. APROXIMATELY 0840 PATIENT CALLED OUT AGAIN SAYING SAYING SHE COULDN'T BREATH AND SHE FELT LIKE SHE "WAS DROWNING". RT HAD INCREASED O2 TO 5L/NC. O2 INCREASED TO 6L/NC. NURSING RETAIL EVENT AND SALES ASSISTANT NOTIFIED AND RT NOTIFIED AGAIN. DR RETURNED CALL AND HERE TO SEE PATIENT. NONREBREATHER MASK APPLIED. PUT STAT ORDERS IN COMPUTER. STAT LASIX GIVEN ORDERED AT 0910. PATIENT C/O NAUSEA AND STAT LASIX GIVEN ORDERED 0915 PATIENT SITTING ON SIDE OF BED TO HELP WITH BREATHING. SKIN CLAMMY AND PALE. AT BEDSIDE. PATIENT TRANSFERED TO ICU BED 8. REPORT GIVEN TO ICU NURSE IN ICU.
== END 2020-04-07 10:00 | disposition short-term general hospital (02) | DRG 542 ==
LOC: M.REH 19:09 → M.ICU 04-07 09:26 → M.REH 04-07 10:00
PROVIDERS: Family Medicine; Internal Medicine; Specialist; ADMIT Physical Medicine & Rehabilitation; ATTEND Physical Medicine & Rehabilitation
PROC: 5A09357 Assistance with Respiratory Ventilation, Less than 24 Consecutive Hours, Continuous Positive Airway Pressure (ICD-10-PCS; principal; 2020-03-12)
PROC: 5A09357 Assistance with Respiratory Ventilation, Less than 24 Consecutive Hours, Continuous Positive Airway Pressure (ICD-10-PCS; 2020-03-13)
PROC: 5A09357 Assistance with Respiratory Ventilation, Less than 24 Consecutive Hours, Continuous Positive Airway Pressure (ICD-10-PCS; 2020-03-23)
PROC: 5A09357 Assistance with Respiratory Ventilation, Less than 24 Consecutive Hours, Continuous Positive Airway Pressure (ICD-10-PCS; 2020-04-07)
DX: M80.062A Age-related osteoporosis with current pathological fracture, left lower leg, initial encounter for fracture (principal); J96.21 Acute and chronic respiratory failure with hypoxia; A41.9 Sepsis, unspecified organism; J96.22 Acute and chronic respiratory failure with hypercapnia; N17.9 Acute kidney failure, unspecified; F11.20 Opioid dependence, uncomplicated; E44.1 Mild protein-calorie malnutrition; Z68.44 Body mass index [BMI] 60.0-69.9, adult; N39.0 Urinary tract infection, site not specified; L03.116 Cellulitis of left lower limb; J84.9 Interstitial pulmonary disease, unspecified; R53.81 Other malaise; E66.01 Morbid (severe) obesity due to excess calories; G89.4 Chronic pain syndrome; G47.33 Obstructive sleep apnea (adult) (pediatric); I10 Essential (primary) hypertension; M12.9 Arthropathy, unspecified; M21.379 Foot drop, unspecified foot; B96.20 Unspecified Escherichia coli [E. coli] as the cause of diseases classified elsewhere; B96.5 Pseudomonas (aeruginosa) (mallei) (pseudomallei) as the cause of diseases classified elsewhere; R41.3 Other amnesia; Z20.828 Contact with and (suspected) exposure to other viral communicable diseases; Z88.8 Allergy status to other drugs, medicaments and biological substances; Z79.899 Other long term (current) drug therapy

== ENCOUNTER 2020-04-07 10:26 | Inpatient (IN) | payer MEDICARE ==
[2020-04-07] VITALS (19 sets, daily range): BP systolic 114–152; BP diastolic 41–85
[~2020-04-07] VITALS: Ht 154.9 cm; Wt 160.8 kg
[2020-04-07 11:52] LABS: PCO2 44.3 mmHg (35.0-45.0); pH 7.332 (7.340-7.450)
[2020-04-07 11:53] LABS: BE -2.9 mmol/L (-2 to +3)
[2020-04-07 12:03] LABS: PO2 124.4 mmHg (75.0-100.0)
[2020-04-07 12:37] LABS: CALCIUM 8.5 mg/dL (8.5-10.1); CREATININE 0.9 mg/dL (0.6-1.3); POTASSIUM 3.7 mmol/L (3.5-5.1)
[2020-04-07 12:41] LABS: ALBUMIN 2.8 g/dL (3.4-5.0); MAGNESIUM 1.8 mg/dL (1.8-2.4); PHOSPHORUS* 4.6 mg/dL (2.5-4.9); TOTAL BILIRUBIN 0.3 mg/dL (<0.1-1.0); TOTAL PROTEIN 6.1 g/dL (6.4-8.2)
[2020-04-07 13:35] LABS: ABSOLUTE BASOPHILS 0.1 thou/uL (0.0-0.2); ABSOLUTE EOSINOPHILS 0.4 thou/uL (0.0-0.7); ABSOLUTE LYMPHOCYTES 1.6 thou/uL (0.8-5.3); ABSOLUTE MONOCYTES 0.5 thou/uL (0.0-1.2); ABSOLUTE NEUTROPHILS 5.5 thou/uL (1.6-8.1); BASOPHILS 1.4 %; EOSINOPHILS 4.5 %; HEMATOCRIT 25.9 % (37.0-47.0); HEMOGLOBIN 8.5 gm/dL (12.0-15.0); LYMPHOCYTES 19.7 %; MCHC 32.7 g/dL (28.0-37.0); MCV 91.7 fL (80.0-100.0); MONOCYTES 5.7 %; MPV 8.6 fl. (7.2-11.1); NUCLEATED RBCS 0 /100WBC; PLATELET COUNT* 250 thou/uL (150-400); POLYS 68.7 %; RBC 2.82 mil/uL (4.20-5.00); RDW-CV 15.8 % (10.5-14.5); WBC 8.1 thou/uL (4.0-11.0)
--- NOTE | 2020-04-07 17:14 | NUR ---
PT ON BIPAP. PACHECO TO DD WITH 5600ML OUTPUT AFTER LASIX. CT CHEST TODAY. SEE RESULTS. EXTERNAL FIXATER TO LLE. NWB TO LLE.
[2020-04-08] VITALS (29 sets, daily range): BP systolic 100–150; BP diastolic 22–77
[2020-04-08 06:39] LABS: ABSOLUTE LYMPHOCYTES 0.9 thou/uL (0.8-5.3); ABSOLUTE MONOCYTES 0.1 thou/uL (0.0-1.2); ABSOLUTE NEUTROPHILS 3.5 thou/uL (1.6-8.1); BASOPHILS 0.8 %; HEMATOCRIT 25.3 % (37.0-47.0); HEMOGLOBIN 8.3 gm/dL (12.0-15.0); LYMPHOCYTES 18.8 %; MCH 29.8 pg (26.0-34.0); MCHC 32.8 g/dL (28.0-37.0); MCV 90.8 fL (80.0-100.0); MONOCYTES 3.2 %; MPV 9.2 fl. (7.2-11.1); NUCLEATED RBCS 0 /100WBC; PLATELET COUNT* 236 thou/uL (150-400); POLYS 77.2 %; RBC 2.79 mil/uL (4.20-5.00); WBC 4.6 thou/uL (4.0-11.0)
[2020-04-08 06:56] LABS: CALCIUM 8.1 mg/dL (8.5-10.1); MAGNESIUM 1.9 mg/dL (1.8-2.4); POTASSIUM 4.3 mmol/L (3.5-5.1)
--- NOTE | 2020-04-08 08:13 | NUR ---
ASSUMED PATIENT CARE AT 1900. ASSESSEMENTS COMPLETED CHARTED. CARDIAC MONITORING IN PLACE. WOUND SITES ON LEFT LEG CLEANED AND DRESSINGS CHANGED. BED LOCKED AND IN LOWEST POSITION FOR PATIENT SAFETY. FALL PRECAUTIONS IN PLACE FOR PATIENT SAFETY. CLWR.
--- NOTE | 2020-04-08 19:00 | NUR ---
PT PROGRESSED TOWARD GOALS DOWNGRADED TO TELEY STATUS CHANGED DRESSING ON EXTERNAL FIXATION DEVICE ON L LEG O2 SAT MAINTAINING ABOVE 95% ON 2 L PLEASANT CONSUMED ALL OF MEALS RECEIVING INT ABTS
--- NOTE | 2020-04-08 22:32 | NUR ---
REPORT CALLED TO DIXON MAYO ON TELE. PATIENT TRANSPORTED VIA BED TO ROOM 204 AT 2232.
[2020-04-09 04:00] VITALS: BP 109/43
[2020-04-09 05:55] LABS: ABSOLUTE BASOPHILS 0.1 thou/uL (0.0-0.2); ABSOLUTE EOSINOPHILS 0.2 thou/uL (0.0-0.7); ABSOLUTE LYMPHOCYTES 3.7 thou/uL (0.8-5.3); ABSOLUTE MONOCYTES 0.5 thou/uL (0.0-1.2); ABSOLUTE NEUTROPHILS 3.5 thou/uL (1.6-8.1); BASOPHILS 1.2 %; EOSINOPHILS 2.8 %; HEMATOCRIT 23.6 % (37.0-47.0); HEMOGLOBIN 7.8 gm/dL (12.0-15.0); LYMPHOCYTES 45.9 %; MCH 29.9 pg (26.0-34.0); MCV 90.7 fL (80.0-100.0); MONOCYTES 6.5 %; MPV 8.8 fl. (7.2-11.1); NUCLEATED RBCS 0 /100WBC; PLATELET COUNT* 259 thou/uL (150-400); POLYS 43.6 %; RDW-CV 16.2 % (10.5-14.5)
[2020-04-09 06:11] LABS: ALBUMIN 2.6 g/dL (3.4-5.0); CALCIUM 7.8 mg/dL (8.5-10.1); CREATININE 1.3 mg/dL (0.6-1.3); POTASSIUM 3.4 mmol/L (3.5-5.1); TOTAL BILIRUBIN 0.2 mg/dL (<0.1-1.0); TOTAL PROTEIN 5.9 g/dL (6.4-8.2)
--- NOTE | 2020-04-09 06:48 | NUR ---
Shift uneventful. Pt transferred to floor at 2200. Pt is aox4, running 1st degree AV block on telemetry, respirations are even and unlabored on 2L NC w/ home CPAP when sleeping. Pin care completed at 0600. Pt is medically stable at this time.
[2020-04-09 08:00] VITALS: BP 118/54
--- NOTE | 2020-04-09 08:00 | NUR ---
AM ASSESSMENT COMPLETE, DEFER TO COMPUTER CHARTING. HOME HEALTH CNA TRACKING SR, PALE IN COLOR. ALERT ORIENTED. DRESSING CDI TO LEFT LOWER LEG WITH ORTHO PIN/DEVICE IN PLACE. REPORTING HAVING DISCOMFORT IN LEFT LOWER LEG, DECLINES PAIN MEDICATION WITH OFFERED - INSTRUCTED TO NOTIFY NURSING IF NEEDING PAIN MEDICATION. LUNGS CTA AND DIMINISHED, ROOM AIR - 02 SAT 92%. CALL LIGHT WITHIN REACH, WILL MONITOR.
[2020-04-09 14:19] VITALS: BP 154/52
[2020-04-09 16:00] VITALS: BP 107/52
--- NOTE | 2020-04-09 16:27 | NUR ---
INSPECTOR FLOOR TRACKING WITH NO CHANGE IN RHYTHM. REMAINS ON ROOM AIR, NO SIGN OF RESPIRATORY DISTRESS. OFFERED PAIN MED DURING SHIFT FOR LEFT LEG DISCOMFORT - PATIENT DECLINING, INSTRUCTED TO CALL WHEN PAIN MEDICATION IS NEEDED. DRESSING CHANGE TO LEFT LEG PIN/INCSION SITE PER ORDERS. SISTER IN EARLIER TO VISIT. HOB ELEVATED, CALL LIGHT WITHIN REACH. WILL CONTINUE WITH PLAN OF CARE.
[2020-04-09 19:40] VITALS: BP 129/40
[2020-04-10] VITALS: BP 141/68
[2020-04-10 05:41] VITALS: BP 141/63
[2020-04-10 08:00] VITALS: BP 151/74
--- NOTE | 2020-04-10 11:58 | NUR ---
CM spoke with Pt and sister, Chio, in room. Pt admitted from [facility] acute rehab for hypoxia, plans to return to acute rehab [place] [facility], possibly today, pending ortho's plan for surgery. Pt states that she will be getting a metal felipa put in her tibia, currently has an external fixator. Pt is currently NWB on her left leg. Prior to acute rehab, Pt resided at home alone. Independent. Sister did laundry, Pt's groceries and meds were delivered. Pt states that she has been in and out of the hospital since 01/03. Hx of covid positive. Hx of skilled at [facility]. Pt has a walker and kylee scooter at home. No home o2. Pt has a cpap through [employer] Following.
[2020-04-10 12:00] VITALS: BP 137/70
--- NOTE | 2020-04-10 13:23 | NUR ---
ASSUMED PT CARE AT 0730, PT RESTING IN BED, A&OX4 AND STATES SHE HAS PAIN IN HER LLE TREATED W/ SCHEDULED PAIN MEDS W/ RELIEF. PT IS NON-WEIGHT BEARING TO LLE AND HAS EX-FIX IN PLACE. PT GOAL IS TO REMAIN FREE FROM SKIN BREAKDOWN AND SEE ORTHO TO HOPEFULLY BE CLEARED TO MOVE UP TO REHAB. AM ASSESSMENT CHARTED, MEDS PER DEC, PT HAS FAMILY IN ROOM W/ HER THIS MORNING, HOURLY ROUNDING OBSERVED, CALL LIGHT W/IN REACH, WILL CONTINUE POC.
[2020-04-10 17:40] VITALS: BP 141/64
--- NOTE | 2020-04-10 18:15 | NUR ---
NO ACUTE CHANGES THROUGHOUT SHIFT, PT IS PROGRESSING TOWARDS GOALS AND DID REMAIN FREE FROM SKIN BREAKDOWN DURING THIS SHIFT. PT IS STILL AWAITING ORTHO TO SEE HER, MEDS PER MAR, HOURLY ROUNDING OBSERVED, CALL LIGHT W/IN REACH, WILL CONTINUE POC.
[2020-04-11] VITALS: BP 144/60
[2020-04-11 04:00] VITALS: BP 147/87
--- NOTE | 2020-04-11 05:01 | NUR ---
PT SLEPT MOST OF SHIFT. ASSESSMENT DOCUMENTED. MEDS GIVEN PER E-DEC. PT STATES PAIN IS CONTROLLED WITH SCHEDULED PAIN MEDICAIONS. DRESSING TO LEG CHANGED. PT REPOSITIONED THROUGH SHIFT. WILL CONTINUE WITH PLAN OF CARE.
[2020-04-11 08:00] VITALS: BP 145/75
--- NOTE | 2020-04-11 09:17 | NUR ---
Ortho cleared Pt to return to ARU, CM updated rehabilitation center manager, waiting to see if they can accept Pt back to rehab today.
[2020-04-11 12:03] VITALS: BP 151/70
--- NOTE | 2020-04-11 14:53 | NUR ---
Pt medically stable to dc, rehab Dr wanting a definitive answer as to when Pt will have surgery prior to admitting Pt back to ARU. Awaiting decision
[2020-04-11 16:11] VITALS: BP 156/76
[2020-04-11 18:13] LABS: ABSOLUTE LYMPHOCYTES 3.5 thou/uL (0.8-5.3); ABSOLUTE MONOCYTES 0.6 thou/uL (0.0-1.2); BASOPHILS 0.3 %; EOSINOPHILS 9.5 %; LYMPHOCYTES 34.4 %; MCH 29.6 pg (26.0-34.0); MCHC 32.7 g/dL (28.0-37.0); MCV 90.5 fL (80.0-100.0); MONOCYTES 6.3 %; MPV 9.1 fl. (7.2-11.1); NUCLEATED RBCS 0 /100WBC; PLATELET COUNT* 296 thou/uL (150-400); POLYS 49.5 %; RBC 3.43 mil/uL (4.20-5.00); RDW-CV 15.9 % (10.5-14.5); WBC 10.1 thou/uL (4.0-11.0)
[2020-04-11 18:18] LABS: HEMOGLOBIN 10.2 gm/dL (12.0-15.0)
[2020-04-11 18:34] LABS: ALBUMIN 3.3 g/dL (3.4-5.0); CALCIUM 8.5 mg/dL (8.5-10.1); MAGNESIUM 2.2 mg/dL (1.8-2.4); PHOSPHORUS* 2.5 mg/dL (2.5-4.9); POTASSIUM 3.8 mmol/L (3.5-5.1); TOTAL BILIRUBIN 0.5 mg/dL (<0.1-1.0); TOTAL PROTEIN 7.2 g/dL (6.4-8.2)
--- NOTE | 2020-04-11 18:55 | NUR ---
wound care done at bedside
[2020-04-12] VITALS: BP 163/62
[2020-04-12 04:00] VITALS: BP 142/74
[2020-04-12 05:00] LABS: CALCIUM 8.2 mg/dL (8.5-10.1); POTASSIUM 3.5 mmol/L (3.5-5.1)
[2020-04-12 09:00] VITALS: BP 142/72
--- NOTE | 2020-04-12 09:45 | NUR ---
CM spoke with rehabilitation services director, per ortho, no plans for surgery anytime soon. Liaison requested that CM clarify with Pt dc plans post rehab. CM spoke with Pt regarding assistance at home post ARU, Pt to speak with sisters to see if they would be able to stay with her post rehab. CM to f/u later. PT/OT to see today. Pt is medically stable to dc.
[2020-04-12 12:09] VITALS: BP 138/66
--- NOTE | 2020-04-12 13:31 | NUR ---
Pt to dc to acute rehab today. Faxed orders. Updated Pt and sister
[2020-04-12 15:49] VITALS: BP 138/66
--- NOTE | 2020-04-12 15:54 | CON ---
[address] [address] CONSULTATION Name: CASTROKULWANT Room: [address] IN M.R.#: [id number] Admission: 04/07/20 Attend Phys: Richard Amezcua Discharge: Date of : 52 Report #: [id number] THIS REPORT FOR: //name// cc: Jolie Carvajal Angela Jo RNP ~ THIS REPORT FOR: //name// CC: Jolie Buck DATE OF SERVICE: 04/07/2020 REQUESTING PHYSICIAN Richard Buck MD HISTORY OF PRESENT ILLNESS: This is a 69-year-old female. She has a previous history of longstanding narcotic use as well as obstructive sleep apnea. The patient reports that she uses a CPAP at night. More recently, the patient has had a complicated course over the last several months. She is reported to have tested positive for COVID-19 in December and did have an admission at [facility] in December. The patient has had 2 subsequent tests for COVID-19, which are reported to be negative. She subsequently has had an admission to this hospital after having a cardiac arrest. The patient also has had a complicated urinary tract infection with Pseudomonas aeruginosa and E. coli been cultured from her urine. Further, she has had a fracture of the right tibia, which may be a spontaneous fracture. She has had infiltrates as well. There are some chronic changes on x-rays too and therefore these are difficult to fully define on x-rays; however, there is a CTA chest, which was performed on 02/21/2020 which does show bilateral infiltrates. The patient subsequently was transferred to the rehabilitation floor in our hospital after stabilization. The patient was receiving a breathing treatment this morning when she complained of severe shortness of breath. She also is reported to be saturated with O2 saturations as low as 57% being recorded. The patient was administered furosemide and was placed on a BiPAP and subsequently was transferred to the ICU. The patient currently is wide awake. She is on 50% FiO2 with a BiPAP of 16/8. She is breathing in the high teens, is oxygenating close to 100%. She does not appear to be in any distress at this time. The patient, however, is on a BiPAP and therefore is unable to provide a further history or review of systems. 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 There is mention of interstitial lung disease on the records; however, I do not have an old imaging of her chest available to be able to verify this, one episode of seizure, hypertension. The patient's last available echocardiogram is from 02/18/2020 of this year and shows a left ventricular ejection fraction of 55-60% with a pulmonary artery systolic elevated to 52. The patient is on medications as an outpatient, which will be consistent with a further diagnosis of a connective tissue disease, possibly rheumatoid arthritis. I suspect that she may also have restless leg syndrome and anxiety disorder based on her medication list in addition to gastroesophageal reflux disease and allergic rhinitis. It is, however, noted that I have not found any of these diagnoses actually listed on her records. SOCIAL HISTORY: There is no known history of smoking or ethanol abuse. The patient does take narcotics long-term which are prescribed to her. ALLERGIES: There are several allergies listed on the records. I reviewed the list, I am however not certain if the patient in fact is allergic to all of these medications, for example cefdinir is listed as an allergy; however, she is tolerating cefepime without any problems, which makes it unlikely that she actually is allergic to cephalosporins. Similarly, she has been tolerating steroids as well as albuterol, which makes it unlikely that she is in fact allergic to Symbicort. FAMILY HISTORY: There is no pertinent family history known at this time. PHYSICAL EXAMINATION: GENERAL: She was drowsy, but fully arousable. VITAL SIGNS: She is on a BiPAP of 16/8 with 50% FiO2. She is breathing at 18. She had a pulse of 80 and a blood pressure of 140/60. She is afebrile with a temperature of 36.3. She was saturating 100%, body mass index is elevated to 30.3. HEENT: Head is normocephalic and atraumatic. Pupils are equal. There is a BiPAP mask in place. Throat appears to be narrow. Throat examination is limited due to presence of BiPAP mask. NECK: Does not show raised JVP, asymmetry, mass or lymph nodes. CHEST: Symmetrical expansion on inspection and palpation. On auscultation, breath sounds are bilaterally equal, decreased. No added sounds. HEART: Regular. There is no murmur. ABDOMEN: Soft and nontender. EXTREMITIES: Lower extremities show 2+ edema bilaterally. There are chronic skin changes noted. There is evidence of recent surgery on the left leg. NEUROLOGICAL: She did move all extremities bilaterally equally [place] [address] CONSULTATION Name: KULWANT CASTRO Room: [address] IN [facility].#: [id number] Admission: 04/07/20 Attend Phys: Richard Amezcua Discharge: Date of : 52 Report #: [id number] LABORATORY DATA: The patient's chest x-ray is reviewed and compared to the patient's previous chest x-rays, there are chronic changes noted. There are some pulmonary infiltrates as well. Recent chest x-ray, particularly today chest x-ray looks significantly worse than previous ones. It appears likely to me that this changes due to an increase in pulmonary vascular congestion with infiltrates, some chronic changes, remaining unchanged. The patient's arterial blood gas does show mild metabolic as well as respiratory acidosis. She is oxygenating well on current BiPAP settings. The patient's CBC as well [facility] and these are reviewed. D-dimer is elevated. ProBNP is elevated. ASSESSMENT AND PLAN: 1. Acute hypoxemic respiratory failure. It appears likely to me that the patient's background infiltrates as well as chronic changes are unchanged and current acute deterioration is due to fluid overload. Thromboembolism is not ruled out at this time; however, it appears less likely to me at first impression. At this time, I would recommend keeping her on the BiPAP. If the patient's respiratory status continues to improve and she is more awake later this afternoon, then we can assess her off BiPAP. The patient regardless will need to continue on BiPAP while asleep for now considering her history of obstructive sleep apnea. 2. Acute pulmonary edema/fluid overload. Discussion regarding chest x-rays is as above. My initial impression is that the patient has declined due to her having developed fluid overload. We have treated her with Lasix. We will follow response. The etiology of her developing fluid overload also does need to be evaluated further. I will check a troponin I level. We will follow further the chest x-rays. 3. Pulmonary infiltrate/urinary tract infection. Again follow with chest x-rays. The Infectious Disease saw this is on the case and is already managing antibiotics. 4. Obstructive sleep apnea. See discussion as above in the long length. She may have also benefit from weight loss. 5. COVID-19. The patient was diagnosed in December. Since then, she has had 2 negative tests and there is no evidence of recurrence. 6. Edema/evaluation for thromboembolic phenomena. We will go ahead and obtain venous Dopplers. We may consider repeating a subsequent CTA chest as well. 7. Long-term narcotic use. 8. Recent lower extremity fracture, below knee. 9. Possibility of interstitial lung disease. There are some chronic changes noted; however, I do not have any previous CT films available to assess this further. We will plan on obtaining a repeat CT chest later to follow up on this. The patient may also benefit from obtaining outpatient PFTs if not already performed. 10. Possible history of connective tissue disease or inflammatory arthropathy. I do not have details available at this time. 11. IV access. The patient has a right upper extremity PICC line. [address] [address] CONSULTATION Name: KULWANT CASTRO Room: [address]#: [id number] Admission: 04/07/20 Attend Phys: Richard Amezcua Discharge: Date of : 52 Report #: [id number] The patient is critically ill at this time. Total time spent providing critical care to this patient today exceeds 45 minutes. <ELECTRONICALLY SIGNED> By: Bereket Styles MD 04/12/20 1554 1431 2244Akevin Styles MD /nt
== END 2020-04-12 19:00 | DRG 177 ==
LOC: M.2W 10:26 → M.ICU 10:26 → M.2W 04-08 22:42
PROVIDERS: Internal Medicine; Internal Medicine Critical Care Medicine; ADMIT Family Medicine; ATTEND Family Medicine
PROC: 5A09357 Assistance with Respiratory Ventilation, Less than 24 Consecutive Hours, Continuous Positive Airway Pressure (ICD-10-PCS; principal; 2020-04-07)
PROC: 5A09357 Assistance with Respiratory Ventilation, Less than 24 Consecutive Hours, Continuous Positive Airway Pressure (ICD-10-PCS; 2020-04-08)
PROC: 5A09357 Assistance with Respiratory Ventilation, Less than 24 Consecutive Hours, Continuous Positive Airway Pressure (ICD-10-PCS; 2020-04-09)
PROC: 5A09357 Assistance with Respiratory Ventilation, Less than 24 Consecutive Hours, Continuous Positive Airway Pressure (ICD-10-PCS; 2020-04-11)
DX: J69.0 Pneumonitis due to inhalation of food and vomit (principal); J96.22 Acute and chronic respiratory failure with hypercapnia; J96.21 Acute and chronic respiratory failure with hypoxia; N39.0 Urinary tract infection, site not specified; Z68.44 Body mass index [BMI] 60.0-69.9, adult; L03.116 Cellulitis of left lower limb; E87.2 Acidosis; N17.9 Acute kidney failure, unspecified; G47.33 Obstructive sleep apnea (adult) (pediatric); E87.70 Fluid overload, unspecified; E66.01 Morbid (severe) obesity due to excess calories; B96.5 Pseudomonas (aeruginosa) (mallei) (pseudomallei) as the cause of diseases classified elsewhere; M21.379 Foot drop, unspecified foot; G89.4 Chronic pain syndrome; M12.80 Other specific arthropathies, not elsewhere classified, unspecified site; D64.9 Anemia, unspecified; I25.10 Atherosclerotic heart disease of native coronary artery without angina pectoris; Z99.81 Dependence on supplemental oxygen; Z88.8 Allergy status to other drugs, medicaments and biological substances; Z91.09 Other allergy status, other than to drugs and biological substances; Z79.82 Long term (current) use of aspirin; Z79.899 Other long term (current) drug therapy; Z86.74 Personal history of sudden cardiac arrest

== ENCOUNTER 2020-04-12 15:34 | Inpatient (IN) | payer MEDICARE ==
[~2020-04-12] VITALS: Ht 154.9 cm; Wt 146.3 kg
[2020-04-12 19:00] VITALS: BP 133/69
--- NOTE | 2020-04-13 03:30 | NUR ---
ADMITTED FROM TELEMETRY A 69 YEAR OLD FEMALE W/ FX LEFT TIBIA /FIBULA.CAME TO UNIT PER BED @ 1819.HOB UP.EXTERNAL FIXATOR DEVICE IN PLACE LEFT LE.PACHECO CATHETER PATENT.BED ALARM PUT ON @ 1924.ASSUMED CARE @ 1924. PICC LINE W/ BLOOD RETURN @ 2254 & FLUSHED GOOD.TX DONE TO PIN SITES LEFT LE @ 0935.ON HOURLY ROUNDS.CHEMICAL PLANT OPERATOR DOING ODD HOUR ROUNDS.
--- NOTE | 2020-04-13 05:38 | NUR ---
SLEPT LATE @ -04/13-& SLEEPING GOOD ALL NIGHT.TOOK CRANBERRY JUICE X2 HS SNACKS.TEMP @ 1900-99.3 ORAL.TEMP.RE-CHECKED @ 0530-98.2 ORAL.USED BEDPAN X1 @ 1945 W/ 2 PERSONS FOR BM.CRISTHIAN CARE X1.
[2020-04-13 07:18] LABS: HEMATOCRIT 24.5 % (37.0-47.0); HEMOGLOBIN 8.5 gm/dL (12.0-15.0); MCH 31.2 pg (26.0-34.0); MCHC 34.6 g/dL (28.0-37.0); MPV 9.4 fl. (7.2-11.1); RBC 2.72 mil/uL (4.20-5.00); RDW-CV 15.8 % (10.5-14.5); WBC 5.9 thou/uL (4.0-11.0)
[2020-04-13 07:25] LABS: CALCIUM 7.9 mg/dL (8.5-10.1); CREATININE 0.8 mg/dL (0.6-1.3); POTASSIUM 3.5 mmol/L (3.5-5.1)
[2020-04-13 08:00] VITALS: BP 147/69
--- NOTE | 2020-04-13 13:45 | NUR ---
Nutrition: Pt admitted to rehab with tib/fib FX. Heart healthy diet, eating well. Pt was with ST at time of visit. H/o OBE, GERD, KINJAL, HTN, RA. Wt is variable, per [facility]: 310-339#. 3+ edema noted. RX: foic acid, D3. Alb 3.3, prealb 15.5. Consider low nutrition risk. Will follow weekly.
--- NOTE | 2020-04-13 14:10 | NUR ---
Pt readmitting to inpt rehab and known to this SW from previous inpt rehab stay. Pt has lived at home alone; pt sisters are emotionally supportive. Pt goal is to be able to dc home alone and be able to walk with walker. Pt alread has RW and kylee scooter at home. SW to continue to follow to assist with safe dc planning.
--- NOTE | 2020-04-13 16:56 | NUR ---
AM ASSESSMENT AND VITAL SIGNS COMPLETED DOCUMENTED. PT WORKED WITH ALL THERAPIES TODAY AND WAS ABLE TO DO A THOROUGH SPONGE BATH AT THE SINK. PT REQUESTS TO STAY IN BED UNTIL AFTER DINNER. DRESSING CHANGE TO PIN CARE TO LEFT LEG WILL BE DONE ONCE SHE IS IN BED. FALL PRECAUTIONS AND HOURLY ROUNDING CONTINUE.
[2020-04-13 19:30] VITALS: BP 123/50
--- NOTE | 2020-04-13 21:10 | NUR ---
IN ALLAN'S POSITION WATCHING TV. IN GOOD SPIRITS. PACHECO TO DEPENDENT DRAINAGE WITH YELLOW URINE. SNACK PROVIDED. CALL LIGHT WITHIN REACH.
--- NOTE | 2020-04-14 04:53 | NUR ---
RESTED QUIETLY WITH CPAP. GOOD BLOOD RETURN FROM RIGHT UPPER ARM SINGLE LUMEN PICC LINE. HOURLY ROUNDING IN PROGRESS.
[2020-04-14 08:16] VITALS: BP 143/73
--- NOTE | 2020-04-14 16:56 | NUR ---
ALERT AND ORIENTED X4. UP WITH THERAPIES TO W/C. ON SCHEDULED PAIN MEDICATION. HAS PACHECO CATHETER PATENT WITH CLEAR YELLOW URINE. PIN DRESSINGS DONE ORDERED. EXTERNAL FIXATOR REMAINS IN PLACE ON LEFT LEG. CONTINUES ON IV ANTIBIODIC WITH NO ADVERSE REACTIONS OR SIDE EFFECTS. REMAINS NONWEIGHTBEARING TO LEFT LEG. USES CALL LIGHT FOR ASSIST. FALL PRECAUTIONS REMAIN IN PLACE. BED ALARM AND CHAIR ALARM USED.
[2020-04-14 19:45] VITALS: BP 144/55
--- NOTE | 2020-04-15 00:47 | NUR ---
ASSUMED CARE @ 1907-.AWAKE IN BED W/ HOB UP.PACHECO CATHETER PATENT.EXTERNAL FIXATOR DEVICE IN PLACE LEFT LE.LEFT LE UP ON PILLOW. 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
--- NOTE | 2020-04-15 05:43 | NUR ---
SLEPT LATE @ 2200 & SLEEPING GOOD ALL NIGHT.TOOK 240 ML CRANBERRY JUICE W/ HS MEDS HS SNACK.PAIN MED SCHEDULED @ HS.
[2020-04-15 08:00] VITALS: BP 148/71
[2020-04-15 19:55] VITALS: BP 160/65
--- NOTE | 2020-04-16 00:33 | NUR ---
ASSUMED CARE @ 1909-04/15-SAT.AWAKE IN BED ON HER TABLET W/ HOB UP.EXTERNAL FIXATOR DEVICE IN PLACE LEFT LE.LEFT LE UP ON PILLOW.PACHECO CATHETER-PATENT. BED ALARM PUT ON @ 1909.PICC LINE HAS GOOD BLOOD RETURN @ 2099 & FLUSHED EASILY.PIN SITES CARE DONE @ 2114.LOWER PIN SITES LEFT ANGELA SINCE AM.ON HOURLY ROUNDS.SENIOR SUSTAINABILITY CONSULTANT DID ODD HOUR ROUNDS @ [id number] & 2299.
--- NOTE | 2020-04-16 05:29 | NUR ---
PATIENT ON HER SMART PHONE UNTIL 020.CLAIMED SHE HAD 2 1/2 HOURS NAP TIME FRIDAY PM.SLEEPING @ 0300 W/ C PAP. PATIENT PUT C PAP IND @ 0200.TOOK ALL CRANBERRY JUICE 240 ML W/ [place] HS SNACKS.
[2020-04-16 07:52] VITALS: BP 141/63
--- NOTE | 2020-04-16 17:50 | NUR ---
AM ASSESSMENT AND VITAL SIGNS COMPLETED DOCUMENTED. PT ASSISTED INTO WHEELCHAIR WITH SLIDE BOARD AND ASSIST OF 2. PT BATHED AT THE SINK WITH SETUP, REQUIRED ASSISTANCE WASHING HER BACK AND FEET. PIN CARE DONE. PT BACK TO BED WITH SLIDE BOARD AND ASSIST OF 2. HOME MEDICATION, BONIVA WILL BE BROUGHT BE IN BY HER SISTER. FALL PRECAUTIONS AND HOURLY ROUNDING CONTINUE.
[2020-04-16 19:15] VITALS: BP 141/64
--- NOTE | 2020-04-17 00:53 | NUR ---
ASSUMED CARE @ 1914-04/16-FRIDAY.APPEARS SLEEPING ALREADY IN BED W/ HOB UP & LEFT LE UP ON PILLOW.EXTERNAL FIXATOR DEVICE IN PLACE LEFT LE.PACHECO CATHETER-PATENT.BED ALARM PUT ON @ 1914.AWAKE NOW @ 2014-ON HER TABLET.PICC LINE HAS GOOD BLOOD RETURN @ 2054 & FLUSHED GOOD.PIN CARE DONE @ 2133.C PAP PUT ON BY PATIENT HERSELF @ 2234.ON HOURLY ROUNDS.
--- NOTE | 2020-04-17 05:21 | NUR ---
SLEEPING ALREADY @ 1915 & CONTINOUSLY ALL NIGHT.AWAKE ONCE @ 2100 FOR HS MEDS. TOOK ALL CRANBERRY JUICE 240 ML W/ C[place] HS SNACKS.
[2020-04-17 07:45] VITALS: BP 104/50
--- NOTE | 2020-04-17 11:38 | NUR ---
LYLA received call from pt sister Chio who wanted to check on pt. Pt was in therapy this morning and was with ST at the time. SW informed pt sister that pt was doing okay. Pt sister plans to visit pt in the afternoon after therapies. No other concerns or questions were presented at this time.
--- NOTE | 2020-04-17 16:58 | NUR ---
ALERT AND ORIENTED X4. UP WITH 2 ASSIST, GAIT BELT AND SLIDE BOARD. ON SCHEDULED PAIN MEDICATIONS. DRESSING CHANGED TO EXTERMAL PIN SITES ORDERED. CONTINUES ON IV ANTIBIODICS WITHOUT ADVERSE REACTIONS OR SIDE EFFECTS. PACHECO CATHETER PATENT WITH CLEAR YELLOW URINE. CONTINENT OF BOWEL MOVEMENT IN BEDPAN. USES CALL LIGHT WHEN NEEDING ASSIST. FALL PRECAUTIONS IN PLACE. BED ALARM AND CHAIR ALARM IN PLACE.
[2020-04-17 20:00] VITALS: BP 119/56
--- NOTE | 2020-04-18 04:11 | NUR ---
ASSUMED CARES AT 1920. ALERT AND ORIENTED. PLEASANT. PACHECO CATHETER DD YELLOW URINE. EXTERNAL FIXATOR TO LLE. PIN SITE CARES DONE. DOYLE SMITH PICC. CPAP AT NIGHT. NO ISSUES OVERNIGHT. CALL LIGHT IN REACH AND BED ALARM ON.
[2020-04-18 07:30] VITALS: BP 147/64
--- NOTE | 2020-04-18 16:24 | NUR ---
PATIENT ALERT AND ORIENTED X 4. VITAL SIGNS STABLE ON ROOM AIR. UP WITH MODERATE ASSISTANCE TO THE WHEELCHAIR. SINGLE LUMEN PICC PATENT AND SALINE LOCKED. PAIN BEING MANAGED WITH PO MEDICATION. DENIES NAUSEA. PIN CARE PERFORMED AT 4 PIN SITES. CLEANED AND REPLACED DRESSINGS. LEFT OROZCO WOUND CLEAN, DRY, AND OPEN TO AIR. PARTICIPATED IN THERAPIES. FALL PRECAUTIONS IN PLACE AND BED ALARM ON. HOURLY ROUNDS MAINTAINED THROUGHOUT THE SHIFT. CALL LIGHT WITHIN REACH. NURSING WILL CONTINUE TO MONITOR.
[2020-04-18 20:40] VITALS: BP 143/66
--- NOTE | 2020-04-18 21:00 | NUR ---
SITTING UP IN BED PLAYING A GAME ON COMPUTER AND WATCHING TV. IN GOOD SPIRITS. DENIES NEED FOR ANY ADDITIONAL PAIN MEDS OTHER THAN WHAT IS SCHEDULED. LEFT LEG ELEVATED ON A PILLOW. PIN CARE COMPLETED ORDERED OF 4 INSERTION SITES OF EXTERNAL FIXATOR. PACHECO TO DEPENDENT DRAINAGE WITH CLEAR/YELLOW URINE. CALL LIGHT WIHIN REACH.
--- NOTE | 2020-04-19 04:49 | NUR ---
RESTED QUIETLY WITH CPAP. SINGLE LUMEN RIGHT UPPER PICC LINE INTACT WITH BLOOD RETURN. HOURLY ROUNDING IN PROGRESS.
[2020-04-19 07:45] VITALS: BP 145/75
--- NOTE | 2020-04-19 15:26 | NUR ---
LYLA and Dr Escalera met with pt to review team conference summary and plan for pt to remain on rehab unit one more week with team to reassess pt length of stay during team conference next Friday. Pt expressed that she would be open to dc to [facility] if needed at time of dc. LYLA called pt sister Chio and reviewed team conference summary and dc planning. SW to continue to follow.
--- NOTE | 2020-04-19 17:48 | NUR ---
ALERT AND ORIENTED X4. UP WITH 1-2 ASSIST,GAIT BELT AND SLIDE BOARD. PAIN CONTROLED WITH SCHEDULED PAIN MEDICATION. PACHECO CATHETER PATENT WITH CLEAR YELLOW URINE. TREATMENT DONE TO EXTERNAL PIN SITES ORDERED. SMALL APROXIMATELY 1CM SUPERFICAL SLIT OPENING IN SKIN BY RECTUM NOTED. BARRIER CREAM APPLIED. USES CALL LIGHT WHEN NEEDING ASSIST. FALL PRECAUTIONS IN PLACE. CONTINUES ON PO ANTIBIODICS.
[2020-04-19 19:46] VITALS: BP 151/76
--- NOTE | 2020-04-20 00:12 | NUR ---
ASSUMED CARE @ 1908-04/19-FRI.AWAKE IN BED WATCHING TV W/ HOB UP & LEFT LE UP ON PILLOW.EXTERNAL FIXATOR DEVICE IN PLACE LEFT LE.PACHECO CATHETER-PATENT.BED ALARM ON ALREADY @ 1908.PICC LINE RT UPPER ARM-HAS GOOD BLOOD RETURN @ 2040 & FLUSHED GOOD.PIN CARE DONE W/DRSG CHANGES @ 2051.PICC LINE DRSG CHANGED @ 2124.C PAP PUT ON BY PATIENT HERSELF @ 2255.ON HOURLY ROUNDS.
--- NOTE | 2020-04-20 05:17 | NUR ---
SLEPT LATE @ 0000-04/20- & SLEEPING GOOD ALL NIGHT.TOOK COOKIES & H20 HS SNACKS.
[2020-04-20 08:00] VITALS: BP 154/83
[2020-04-20 19:50] VITALS: BP 124/58; BP 137/43
--- NOTE | 2020-04-21 01:22 | NUR ---
ASSUMED CARE @ 1907-04/20-.AWAKE IN BED W/ HOB UP & LEFT LE UP ON PILLOW. EXTERNAL FIXATOR DEVICE IN PLACE LEFT LE.PACHECO CATHETER-PATENT.BED ALARM PUT ON @ 1907.NO BLOOD RETURN FROM PICC LINE @ 2054-BUT FLUSHED GOOD.PIN CARE DONE @ 2099.CALLED TO USE BEDPAN @ 2350 W/ 2 ASSIST.NO BM.MOISTURE BARRIER CREAM APPLIED TO COCCYX @ 0000-04/21-FRIDAY.C PAP PUT ON BY PATIENT HERSELF @ 0040. ON HOURLY ROUNDS.APPLICATION ENGINEER DOING ODD HOUR ROUNDS.
--- NOTE | 2020-04-21 05:04 | NUR ---
SLEPT LATE @ 0100 & SLEEPING GOOD ALL NIGHT.PUTS ON C PAP IND.TAKES C PAP OFF @ INTERVALS DURING NIGHT.TOOK POP & COOKIES HS SNACKS.
[2020-04-21 07:54] VITALS: BP 137/59
[2020-04-21 19:35] VITALS: BP 134/60
--- NOTE | 2020-04-21 21:15 | NUR ---
SITTING UP IN BED PLAYING ON COMPUTER AND WATCHING TV. PACHECO TO DEPENDENT DRAINAGE WITH YELLOW URINE. PIN CARE INSERTION SITES OF EXTERNAL FIXATOR COMPLETED. HAS SNACKS WITHIN REACH. CALL LIGHT WITHIN REACH.
--- NOTE | 2020-04-22 04:58 | NUR ---
RESTED QUIETLY WITH CPAP. HOURLY ROUNDING IN PROGRESS.
[2020-04-22 07:45] VITALS: BP 140/81
--- NOTE | 2020-04-22 16:27 | NUR ---
ALERT AND ORIENTED X4. UP WITH 2 ASSIST, GAIT BELT AND SLIDE BOARD. REFUSES REPOSITIONING WHILE IN BED AT TIMES. HAS PACHECO CATHETER PATENT WITH CLEAR YELLOW URINE. PIN CARE DONE ORDERED TO EXTERNAL FIXATOR ON LEFT LOWER LEG. USES SCHEDULED PAIN MEDICATION. GOOD BLOOD RETURN AFTER USING CATHFLO ON PICC LINE TODAY. REMAINS NONWEIGHTBEARING TO LEFT LOWER EXTREMITY. USES CALL LIGHT WITHIN REACH. FALL PRECAUTIONS IN PLACE. BED ALARM AND CHAIR ALARM USES.
[2020-04-22 20:00] VITALS: BP 141/70
--- NOTE | 2020-04-23 05:20 | NUR ---
ASSUMED PT CARE AT 1930. PT ALERT AND ORIENTED X4, POLITE AND COOPERATIVE WITH CARES. PT TAKES PILLS WHOLE WITH WATER WITHOUT DIFFICULTY. PT IS NWB TO E WHICH HAS EXTERNAL FIXATOR. PIN CARE PROVIDED. LLE UP ON PILLOW. PACHECO TO DD DRAINING CLEAR YELLOW URINE. BARRIER CREAM TO COCCYX. PT TURNED TO RIGHT SIDE AT HS. PICC TO RUE FLUSHES EASILY WITH GOOD BLOOD RETURN. PT WORE CPAP OVERNIGHT. USES CALL LIGHT APPROPRIATELY. CALL LIGHT IN REACH, BED ALARM ON FOR SAFETY. HOURLY ROUNDING IN PROGRESS, WILL CONTINUE TO MONITOR.
[2020-04-23 07:30] VITALS: BP 154/77
--- NOTE | 2020-04-23 16:50 | NUR ---
ALERT AND ORIENTED X4. UP WITH 2 ASSIST, GAIT BELT AND SLIDE BOARD. PAIN CONTROLED WITH SCHEDULED PAIN MEDICATION. TREATMENT DONE ORDERED TO EXTERNAL FIXATOR ON LEFT LEG. PACHECO CATHETER PATENT WITH CLEAR YELLOW URINE. USED BEDSIDE COMMODE FOR BOWEL MOVEMENT. REMAINS NONWEIGHTBEARING TO LEFT LOWER EXTREMITY. OFFERED TO REPOSITION PATIENT AT LEAST EVERY 2 HOURS. SEVERAL TIMES PATIENT REFUSED SAID SHE MOVES AROUND HERSELF. USES CALL LIGHT WITHIN REACH. FALL PRECAUTIONS IN PLACE. BED ALARM AND CHAIR ALARM USES.
[2020-04-23 20:20] VITALS: BP 139/57
--- NOTE | 2020-04-24 05:26 | NUR ---
PT SLEPT WELL OVERNIGHT. SCHEDULED PO PAIN MEDS GIVEN FOR LLE PAIN WITH GOOD RESULT. PACHECO DRAINING CLEAR YELLOW URINE. LLE WITH EXTERNAL FIXATOR IN PLACE, PIN CARE DONE AT HS ORDERED. SARAH PICC SL, FLUSHES EASILY-NO AM LABS. AOX4, PLEASANT. CPAP AT HS. ROOM AIR SAT 96%. NWB TO LLE. REFUSING SCDS. HAS BEEN ON BEDREST THIS SHIFT, PT TURNED AND REPOSITIONED Q2 HOURS AND PRN SHE WOULD ALLOW AND REQUESTS FOR SKIN CARE AND COMFORT. ABLE TO USE CALL LITE AND MAKE NEEDS KNOWN. BED ALARM ON FOR SAFETY.
[2020-04-24 07:59] VITALS: BP 149/79
--- NOTE | 2020-04-24 11:55 | NUR ---
SW faxed referral to pt preference of [facility] SN[facility] in preparation for plan at dc. SW to continue to follow to assist with safe dc planning.
--- NOTE | 2020-04-24 15:19 | NUR ---
ASSUMED CARE AT 0730. ALERT ORIENTED PLEASANT COOPERATIVE. 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 PIN CARE AND DRESSINGS CHANGED MID AFTERNOON TO LLE. PT. ELEVATES LLE ON PILLOW. ABLE TO CHANGE POSITION BY PULLING SELF UP USING BOTTOM RAILS OF BED TO RELIEVE PRESSURE TO BUTTOCKS. PARTICIPATING IN THERAPIES THROUGHOUT THE DAY. RATES PAIN A 5 L HIP AND LEG GIVEN SCHEDULED PAIN MED THIS A.M. PACHECO PATENT WITH SOURAV URINE TO DD BAG. NWBLLE TRANSFERS WITH SLIDING BOARD AND 2 PERSON ASSIST. TAKES MEDS WITHOUT DIFFICULTY FEEDS SELF. USES CALL LIGHT APPROPRIATELY FOR ASSIST.
[2020-04-24 20:45] VITALS: BP 139/68
--- NOTE | 2020-04-25 01:24 | NUR ---
ASSUMED CARE @ 1905-04/24-FRIDAY.AWAKE IN BED W/ HOB UP,LEFT LE UP ON PILLOW & W/ EXTERNAL FIXATOR DEVICE IN PLACE.PACHECO CATHETER-PATENT.BED ALARM PUT ON @ 1905.PICC LINE HAS GOOD BLOOD RETURN @ 2055 & FLUSHES GOOD.PIN CARE DONE @ 2149.C PAP PUT ON BY PAtient herself @ 0.on hourly rounds.
--- NOTE | 2020-04-25 05:14 | NUR ---
SLEPT LATE @ 0000-04/25-FRIDAY & SLEEPING GOOD ALL NIGHT.TOOK CRANBERRY JUICE 240 ML HS SNACKS W/ HS MEDS.
[2020-04-25 08:00] VITALS: BP 143/86
--- NOTE | 2020-04-25 17:06 | NUR ---
AM ASSESSMENT AND VITAL SIGNS COMPLETED DOCUMENTED. PT CONTINUES TO WORK WITH PT, OT AND ST. LEFT LEG EXTERNAL FIXATOR IN PLACE, NON WT BEARING STATUS OBSERVED. PT TRANSFERS WITH ASSIST OF TWO AND A SLIDE BOARD. FALL PRECAUTIONS AND HOURLY ROUNDING CONTINUE.
[2020-04-25 19:20] VITALS: BP 150/57
--- NOTE | 2020-04-26 01:32 | NUR ---
ASSUMED CARE @ 1919-.AWAKE IN BED W/ HOB UP & LEFT LE UP ON PILLOW. PACHECO CATHETER-PATENT.EXTERNAL FIXATOR DEVICE IN PLACE LEFT LE.BED ALARM ALREADY ON @ 1919.PICC LINE HAS GOOD BLOOD RETURN @ 2035 & FLUSHED GOOD. PICC LINE DRSG CHANGED @ 2139.PIN CARE SITES DONE @ 2119.ON HOURLY ROUNDS. C PAP PUT ON BY PATIENT HERSELF @ 2239.
--- NOTE | 2020-04-26 05:38 | NUR ---
SLEEPING @ 2200 & SLEPT GOOD ALL NIGHT.TOOK ALL CRANBERRY JUICE-240 ML/ ICED TEA ,ORANGE JELLO & ONE COOKIE HS SNACKS.
[2020-04-26 08:09] VITALS: BP 144/75
--- NOTE | 2020-04-26 13:54 | NUR ---
LYLA and Dr Escalera met with pt to review team conference summary and plan for pt to transition to SNF at dc on Saturday 04/28. LYLA sent referral to [facility] on Friday and they are still reviewing the referral. LYLA left message for [facility] admissions to check on status of referral. LYLA provided pt with a list of other SNFs if needed for a back up option. SW to continue to follow to assist with safe dc planning.
--- NOTE | 2020-04-26 16:43 | NUR ---
ASSUMMED CARE OF PT AT 0730, PT ALERT AND ORIENTED, TAKING FOOD AND FLUIDS WELL, DENIES NEED FOR ADDITIONAL PAIN MEDS OTHER THAN THOSE SCHEDULED, PACHECO PATENT AND DRAINING SOURAV URINE, PIN SITE CARE COMPLETED, PICC PORT HAS GOOD BLOOD RETURN, PT C/O SOA WITH ACTIVITY, DR. MEREDITH AWARE AND CXR COMPLETED, PT 02 SATS 93-94% ON RA, UP IN CHAIR AND TOLERATING WELL, DENIES SOA WHILE UP IN CHAIR, TRANSFERS PER SLIDING BOARD, REPOSTIONED EVERY 2 HOURS, RED AAEAS NOTED ON BACK OF MID THIGH AREA, POSSIBLE FROM WHERE HER THIGHS REST ON EDGE OF WHEELCHAIR SEAT, NO BM THIS SHIFT, TAKING FOOD AND FLUIDS WELL, ASSESSMENT COMPLETE, HOURLY ROUNDING COMPLETE, PARTICIPATED IN ALL THERAPIES, WILL CONTINUE TO MONITOR.
[2020-04-26 19:33] VITALS: BP 137/55
--- NOTE | 2020-04-26 20:55 | NUR ---
IN [place] IN BED WATCHING TV AND PLAYING A GAME ON CELL PHONE. PACHECO TO DEPENDENT DRAINAGE WITH YELLOW URINE. CALL LIGHT WITHIN REACH. GOOD BLOOD RETURN FROM RIGHT UPPER ARM SINGLE LUMEN PICC LINE.
[2020-04-27 04:44] LABS: ABSOLUTE BASOPHILS 0.1 thou/uL (0.0-0.2); ABSOLUTE EOSINOPHILS 0.4 thou/uL (0.0-0.7); ABSOLUTE LYMPHOCYTES 3.2 thou/uL (0.8-5.3); ABSOLUTE MONOCYTES 0.7 thou/uL (0.0-1.2); ABSOLUTE NEUTROPHILS 2.6 thou/uL (1.6-8.1); BASOPHILS 1.7 %; EOSINOPHILS 6.1 %; HEMOGLOBIN 8.8 gm/dL (12.0-15.0); LYMPHOCYTES 45.6 %; MCH 28.6 pg (26.0-34.0); MCHC 32.8 g/dL (28.0-37.0); MCV 87.3 fL (80.0-100.0); MONOCYTES 9.4 %; MPV 9.4 fl. (7.2-11.1); NUCLEATED RBCS 0 /100WBC; PLATELET COUNT* 218 thou/uL (150-400); POLYS 37.2 %; RBC 3.09 mil/uL (4.20-5.00); RDW-CV 16.2 % (10.5-14.5)
--- NOTE | 2020-04-27 04:47 | NUR ---
RESTED QUIETLY WITH CPAP. PIN CARE TO EXTERNAL FIXATOR PIN INSERTION SITES X 4 COMPLETED. HOURLY ROUNDING IN PROGRESS.
[2020-04-27 05:13] LABS: ANION GAP 4 mmol/L (7-16); BUN 17 mg/dL (7-18); CALCIUM 8.3 mg/dL (8.5-10.1); CHLORIDE 103 mmol/L (98-107); CO2 35 mmol/L (21-32); GLUCOSE 83 mg/dL (70-99); POTASSIUM 3.3 mmol/L (3.5-5.1); SODIUM 142 mmol/L (136-145); TROPONIN-I LEVEL <0.06 ng/mL (<0.06)
[2020-04-27 08:00] VITALS: BP 138/70
--- NOTE | 2020-04-27 12:57 | NUR ---
LYLA followed up with admissions at [facility] and pt. Plan for pt to dc to [facility] SNF tomorrow, Saturday 04/28.
--- NOTE | 2020-04-27 15:34 | NUR ---
AM ASSESSMENT AND VITAL SIGNS COMPLETED DOCUMENTED. PT WORKED WITH PT/ OT AND ST. PLANS CONTINUE FOR PT TO GO TO [facility] TOMORROW. PICC LINE WOULDN'T FLUSH THIS AM AND WILL BE DC'D, ORDER REC'D FROM DR CASILLAS. FALL PRECAUTIONS AND HOURLY ROUNDING CONTINUE.
[2020-04-27 20:00] VITALS: BP 125/44
--- NOTE | 2020-04-28 05:18 | NUR ---
ASSUMED PT CARE AT 1930. PT ALERT AND ORIENTED X4, POLITE AND COOPERATIVE WITH CARES. PIN CARE PERFORMED. PICC FLUSHES AND DRAWS BACK WITHOUT DIFFICULTY. PT TURNED TO RIGHT SIDE AT HS AND REFUSES FURTHER TURNS OVERNIGHT. PACHECO TO DD, DRAINING YELLOW URINE. NO STOOL THIS SHIFT. PT ANTICIPATING DISCHARGE TODAY TO [facility] TODAY. PT WORE CPAP OVERNIGHT. CALL LIGHT IN REACH. BED ALARM ON FOR SAFETY. HOURLY ROUNDING IN PROGRESS, WILL CONTINUE TO MONITOR.
[2020-04-28] MEDS ORDERED: DORYX MPC120 MG PO (13:15)
[2020-04-28] MEDS ORDERED: XARELTO10 M1 PO (13:26)
[2020-04-28 13:29] VITALS: BP 135/70
--- NOTE | 2020-04-28 14:57 | NUR ---
Pt to dc to [facility] SNF today. LYLA faxed final orders/meds to [facility] admissions and ride is arranged for 4:30 to 5 pm. LYLA informed pt and pt nurse. Chart copied for continuation of care. [facility] ph [phone]
--- NOTE | 2020-04-28 16:30 | NUR ---
PT COMPLETED HER THERAPIES FOR THE DAY. DISCHARGE INSTRUCTIONS GIVEN TO HER A REFERENCE. PT AND BELONGINGS TRANSPORTED TO [facility], DISCHARGED TO [facility] IN STABLE CONDITION. REPORT CALLED TERE WRIGHT.
== END 2020-04-28 17:15 | DRG 542 ==
LOC: M.REH 15:34
PROVIDERS: Internal Medicine; ADMIT Physical Medicine & Rehabilitation; ATTEND Physical Medicine & Rehabilitation
DX: M80.862A Other osteoporosis with current pathological fracture, left lower leg, initial encounter for fracture (principal); J96.21 Acute and chronic respiratory failure with hypoxia; J69.0 Pneumonitis due to inhalation of food and vomit; N17.9 Acute kidney failure, unspecified; Z68.44 Body mass index [BMI] 60.0-69.9, adult; N39.0 Urinary tract infection, site not specified; L03.116 Cellulitis of left lower limb; K21.9 Gastro-esophageal reflux disease without esophagitis; G47.33 Obstructive sleep apnea (adult) (pediatric); I10 Essential (primary) hypertension; M19.90 Unspecified osteoarthritis, unspecified site; Y93.89 Activity, other specified; M06.9 Rheumatoid arthritis, unspecified; S82.832A Other fracture of upper and lower end of left fibula, initial encounter for closed fracture; Z20.828 Contact with and (suspected) exposure to other viral communicable diseases; G89.4 Chronic pain syndrome; E66.01 Morbid (severe) obesity due to excess calories; R53.81 Other malaise; M21.379 Foot drop, unspecified foot; W18.39XA Other fall on same level, initial encounter; Y92.89 Other specified places as the place of occurrence of the external cause; Y99.8 Other external cause status; Z88.8 Allergy status to other drugs, medicaments and biological substances; Z79.82 Long term (current) use of aspirin; Z79.899 Other long term (current) drug therapy; Z79.891 Long term (current) use of opiate analgesic; B96.20 Unspecified Escherichia coli [E. coli] as the cause of diseases classified elsewhere; Z86.74 Personal history of sudden cardiac arrest

== ENCOUNTER → 2020-06-16 | Outpatient (CLI) | payer MEDICARE ==
[~2020-06-16] MED LIST changes: +ANTACID200 MG PO; +CHILDREN'S ZYRT10 M1 PO; +DORYX MPC120 MG PO; +DOXYCYCLINE 10100 M2 PO; +FLONASE 0.05%50 MCG NARES; +KEPPRA XR500 MG PO; +MILK OF MA400 MG/5 M PO; +NEXIUM40 MG PO; +OXYCODONE HCL E15 MG PO; +OXYCODONE HCL E60 MG PO; +PAIN RELIEF325 MG PO; +ROPINIROLE HCL4 MG PO; +ROXICODONE5 M2 PO; +ROXICODONE5 MG PO; +TRAZODONE HCL100 MG PO; +TUMS200 MG PO; +VITAMIN D3100 MCG PO; +XARELTO10 M1 PO; +ZESTRIL20 MG PO
== END ==
LOC: M.CT 13:07
PROVIDERS: ATTEND Orthopaedic Surgery
DX: S82.492D Other fracture of shaft of left fibula, subsequent encounter for closed fracture with routine healing (principal); M19.90 Unspecified osteoarthritis, unspecified site; X58.XXXD Exposure to other specified factors, subsequent encounter

== ENCOUNTER 2020-06-18 11:28 | Inpatient (IN) | payer MEDICARE ==
[~2020-06-18] VITALS: Ht 154.9 cm; Wt 131.5 kg
--- NOTE | ~2020-06-18 | OP ---
[address] [address] OPERATIVE REPORT Name: KULWANT CASTRO Room: [address] IN M.R.#: [id number] Admission: 06/18/20 Attend Phys: Deborah Wayne MD Discharge: Date of : 52 Report #: [id number] THIS REPORT FOR: //name// cc: Jolie Carvajal Angela Jo RNP ~ CC: Jolie Wayne DATE OF SERVICE: 06/20/2020 PREOPERATIVE DIAGNOSIS: Left proximal tibia fracture, status post multiple incision and drainage with external fixation, now with healed wound, but nonunion through pathologic fracture. POSTOPERATIVE DIAGNOSIS: Left proximal tibia fracture, status post multiple incision and drainage with external fixation, now with healed wound, but nonunion through pathologic fracture. PROCEDURE: Removal of external fixation under anesthesia, manipulation under anesthesia left knee. SURGEON: Carlos Ulloa DO WATCHSTANDER: Alberta Gore DO ANESTHESIA: General. ANTIBIOTICS: Ancef IV. FLUIDS: 400 mL lactated Ringer's. ESTIMATED BLOOD LOSS: 5 mL. COMPLICATIONS: None. SPECIMENS: None. DRAINS: None. CONDITION: The patient is stable to PACU. IMPLANTS REMOVED: External fixation with no complication. INDICATIONS FOR PROCEDURE: The patient actually was admitted to [facility] prior to her surgery for other reasons medically related. She was cleared to be able to have surgery. This was a scheduled removal initially [facility] [address] [place] [address] OPERATIVE REPORT Name: KULWANT CASTRO Isabel Room: [address] IN M.R.#: [id number] Admission: 06/18/20 Attend Phys: Deborah Wayne MD Discharge: Date of : 52 Report #: [id number] as an outpatient. 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 I have already contacted Dr. De La Fuente, who had actually seen her for a lesion on her opposite side. Unfortunately, back when she has had this lesion and fracture due to concern. She was tried to transfer to for the Oncology Department, but transfer was refused at that time due to being in the height of the COVID, which is understandable. Biopsy was obtained by my partners, did not appear malignant. We have been following for now, nonunion and does involved the lesion and Dr. De La Fuente has graciously accepted care moving forward. She is understanding of this. Thanked for overall we have done and acknowledged, accepted risks and complications and gave consent to proceed. DESCRIPTION OF PROCEDURE: I marked the left lower extremity in the presence of operative team members. Everyone agreed. She was taken to the operative suite, placed on the operating table supine, well-padded and secured. General anesthetic administered. Left lower extremity was sterilely prepped and draped in standard fashion. Timeout was performed indicating correct patient, procedure, site, antibiotics. All team members agreed. External fixation was removed uneventfully with no complications. C-arm images showed removal in place with no fracture, severe osteoarthritis, and osteopenic bone with bridging callus. The fracture site actually had pretty good stability was not mobile at the fracture site and we were able to get from 0 degrees of extension to 65 degrees of flexion safely, did not want to push further due to the fact that this fracture is not fully healed and create other issues especially for osteoporotic bone. The patient was aware that the permanent stiffness to be an issue and curetted out the pin sites, irrigated with saline. Mupirocin ointment placed, sterile dressings applied. Debriefing performed confirming procedure, blood loss and all counts were correct and final. All team members agreed. She was placed into a 3D hinge brace at 0-60 degrees was then extubated and taken to PACU in stable. POSTOPERATIVE COURSE AND EVALUATION: I spoke with her sister. Addressed questions to stated satisfaction. The patient was resting in PACU with stable vital signs, pain controlled, neurovascularly intact. No signs of DVT. Compartments soft and compressible. She will take DVT prophylaxis, both pharmacologically and mechanically as directed. We are actively working to get her an appointment with Dr. De La Fuente again, he has graciously accepted her care as this is a nonunion through her lesion. Following time questions or concerns, I would anticipate discharge when medically stable. By: [id number] Ulloa DO /nt
[~2020-06-18 11:28] MED LIST changes: -ANTACID200 MG PO; -CHILDREN'S ZYRT10 M1 PO; -DOXYCYCLINE 10100 M2 PO; -FLONASE 0.05%50 MCG NARES; -KEPPRA XR500 MG PO; -MILK OF MA400 MG/5 M PO; -NEXIUM40 MG PO; -OXYCODONE HCL E15 MG PO; -OXYCODONE HCL E60 MG PO; -PAIN RELIEF325 MG PO; -ROPINIROLE HCL4 MG PO; -ROXICODONE5 M2 PO; -ROXICODONE5 MG PO; -TRAZODONE HCL100 MG PO; -TUMS200 MG PO; -VITAMIN D3100 MCG PO; -ZESTRIL20 MG PO
[2020-06-18 11:31] VITALS: BP 174/75
[2020-06-18] MEDS ORDERED: PAIN RELIEF325 MG PO (11:43)
[2020-06-18] MEDS ORDERED: MILK OF MA400 MG/5 M PO (11:43)
[2020-06-18] MEDS ORDERED: ASA81BEC PO (11:44)
[2020-06-18] MEDS ORDERED: ANTACID200 MG PO (11:44)
[2020-06-18] MEDS ORDERED: CHILDREN'S ZYRT10 M1 PO (11:44)
[2020-06-18] MEDS ORDERED: VITAMIN D3100 MCG PO (11:46)
[2020-06-18] MEDS ORDERED: COLACE100 MG PO (11:48)
[2020-06-18] MEDS ORDERED: FUROSEMIDE 40 M40 MG PO (11:48)
[2020-06-18] MEDS ORDERED: FOLIC ACID1 MG PO (11:48)
[2020-06-18] MEDS ORDERED: PLAQUENIL200 MG PO (11:49)
[2020-06-18] MEDS ORDERED: GABAPENTIN600 M1 PO (11:49)
[2020-06-18] MEDS ORDERED: KEPPRA XR500 MG PO (11:50)
[2020-06-18] MEDS ORDERED: OXYCODONE HCL E60 MG PO (11:51)
[2020-06-18] MEDS ORDERED: MIRALAX119 GM PO (11:51)
[2020-06-18] MEDS ORDERED: LEVO-T100 MCG PO (11:51)
[2020-06-18] MEDS ORDERED: ZESTRIL20 MG PO (11:51)
[2020-06-18] MEDS ORDERED: OXYCODONE HCL E15 MG PO (11:52)
[2020-06-18] MEDS ORDERED: FLORASTOR250 MG PO (11:52)
[2020-06-18] MEDS ORDERED: ROPINIROLE HCL4 MG PO (11:52)
[2020-06-18] MEDS ORDERED: TUMS200 MG PO (11:53)
[2020-06-18] MEDS ORDERED: FLONASE 0.05%50 MCG NARES (11:53)
[2020-06-18] MEDS ORDERED: SERTRALINE HCL100 MG PO (11:53)
[2020-06-18] MEDS ORDERED: TRAZODONE HCL100 MG PO (11:53)
[2020-06-18] MEDS ORDERED: ROXICODONE5 M2 PO (11:54)
[2020-06-18] MEDS ORDERED: ZOFRAN4 MG PO (11:54)
[2020-06-18] MEDS ORDERED: ROXICODONE5 MG PO (11:55)
[2020-06-18] MEDS ORDERED: XARELTO10 M1 PO (11:55)
[2020-06-18] MEDS ORDERED: BONIVA150 MG PO (11:56)
[2020-06-18] MEDS ORDERED: DOXYCYCLINE 10100 M2 PO (11:56)
[2020-06-18] MEDS ORDERED: NEXIUM40 MG PO (11:56)
[2020-06-18 12:10] LABS: ABSOLUTE BASOPHILS 0.1 thou/uL (0.0-0.2); ABSOLUTE EOSINOPHILS 0.5 thou/uL (0.0-0.7); ABSOLUTE LYMPHOCYTES 2.1 thou/uL (0.8-5.3); ABSOLUTE MONOCYTES 0.4 thou/uL (0.0-1.2); ABSOLUTE NEUTROPHILS 4.5 thou/uL (1.6-8.1); BASOPHILS 1.4 %; HEMATOCRIT 30.7 % (37.0-47.0); LYMPHOCYTES 27.6 %; MCH 26.6 pg (26.0-34.0); MCHC 32.7 g/dL (28.0-37.0); MCV 81.4 fL (80.0-100.0); MONOCYTES 5.8 %; MPV 8.1 fl. (7.2-11.1); NUCLEATED RBCS 0 /100WBC; PLATELET COUNT* 397 thou/uL (150-400); POLYS 59.2 %; RBC 3.77 mil/uL (4.20-5.00); RDW-CV 16.3 % (10.5-14.5); WBC 7.7 thou/uL (4.0-11.0)
[2020-06-18 12:13] LABS: CALCIUM 8.3 mg/dL (8.5-10.1); POTASSIUM 3.3 mmol/L (3.5-5.1)
[2020-06-18 12:22] LABS: APTT 27.1 Seconds (25.0-31.3); INR 1.2
[2020-06-18 12:24] LABS: ALBUMIN 2.6 g/dL (3.4-5.0); TOTAL BILIRUBIN 0.3 mg/dL (<0.1-1.0); TOTAL PROTEIN 6.2 g/dL (6.4-8.2)
--- NOTE | 2020-06-18 14:03 | EKG ---
[place] [address] ELECTROCARDIOGRAM REPORT Name: CASTROKULWANT Room: [place] [address] ADM IN .R.#: [id number] Admission: 06/18/20 Attend Phys: Deborah Wayne, Discharge: Date of : 52 Date of Service: 06/18/20 1209 Report #: [id number] THIS REPORT FOR: //name// [facility] ED Test Date: 2020-06-18 Test Time: 12:09:42 Pat Name: KULWANT CASTRO Department: Room: [facility] Gender: F Log Getter: minh : 1950 Requested By: Michael Aguilar Order Number: [id number] MD: Joe Nick Measurements Intervals Mineral Rate: 68 P: 36 CT: 58 QRS: 11 QRSD: 108 T: 27 QT: 401 QTc: 427 Interpretive Statements Sinus rhythm Short CT interval Borderline low voltage, extremity leads Compared to ECG 04/04/2020 06:19:[address] interval now present Electronically Signed On 06-18-2020 14:02:54 CDT by Joe Nick [email or web address] <ELECTRONICALLY SIGNED> By: Joe Nick MD, FACC 06/18/20 1402 1209 1209 Joe Nick MD, FACC /EPI
[2020-06-18 14:36] VITALS: BP 101/68
[2020-06-18 15:40] VITALS: BP 161/83
[2020-06-18 20:00] VITALS: BP 147/77
[2020-06-19] VITALS: BP 111/55
[2020-06-19 04:00] VITALS: BP 133/61
[2020-06-19 08:00] VITALS: BP 136/53
[2020-06-19 09:42] LABS: CALCIUM 8.1 mg/dL (8.5-10.1); CREATININE 1.1 mg/dL (0.6-1.3); POTASSIUM 3.6 mmol/L (3.5-5.1)
[2020-06-19 11:30] VITALS: BP 111/49
[2020-06-19 16:00] VITALS: BP 118/53
--- NOTE | 2020-06-19 16:19 | 2DMMODE ---
[place] [address] 2 D/M-MODE ECHOCARDIOGRAM Name: MATTHEWKULWANT J Room: [address] IN .R.#: [id number] Admission: 06/18/20 Attend Phys: Deborah Wayne, Discharge: Date of : 52 Date of Service: 06/19/20 1619 Report #: [id number] THIS REPORT FOR: cc: Jolie Carvajal Angela Jo RNP Holkins, John M. MD [facility] ~ APPROVED REPORT Study performed: 06/19/2020 11:35:41 EXAM: Comprehensive 2D, Doppler, and color-flow Echocardiogram Patient Location: In-Patient Room #: [facility] Status: routine BSA: 2.21 HR: 66 bpm BP: 133/61 mmHg Rhythm: NSR Other Information Study Quality: Good Indications ELEVATED BNP 2D Dimensions IVSd: 12.04 (7-11mm) LVOT Diam: 20.44 (18-24mm) LVDd: 53.07 mm PWd: 8.69 (7-11mm) Ascending Ao: 26.42 (22-36mm) LVDs: 38.09 (25-40mm) Aortic Root: 29.43 mm Volumes Left Atrial Volume (Systole) LA ESV Index: 65.40 mL/m2 Aortic Valve AoV Peak Liang.: 2.11 m/s AO Peak Gr.: 17.83 mmHg LVOT Max P.26 mmHg AO Mean Gr.: 10.75 mmHg LVOT Mean P.51 mmHg LVOT Max V: 1.44 m/s AO V2 VTI: 41.86 cm LVOT Mean V: 0.99 m/s GUSTAVO (VTI): 2.30 cm2 LVOT V1 VTI: 29.36 [place] [address] 2 D/M-MODE ECHOCARDIOGRAM Name: KULWANT CASTRO Room: [address] [place] .R.#: [id number] Admission: 06/18/20 Attend Phys: Deborah Wayne, Discharge: Date of : 52 Date of Service: 06/19/20 1619 Report #: [id number] Mitral Valve E/A Ratio: 1.51 MV Decel. Time: 236.20 ms MV E Max Liang.: 1.29 m/s MV PHT: 68.50 ms MVA (PHT): 3.21 cm2 TDI E/Lateral E': 10.75 E/Medial E': 9.21 Medial E' Liang.: 0.14 m/s Lateral E' Liang.: 0.12 m/s Pulmonary Valve PV Peak Liang.: 1.30 m/s PV Peak Gr.: 6.78 mmHg Tricuspid Valve RAP Estimate: 10.00 mmHg TR Peak Gr.: 31.06 mmHg RVSP: 41.00 mmHg PA Pressure: 41.00 mmHg Left Ventricle The left ventricle is normal size. There is normal LV segmental wall motion. There is normal left ventricular wall thickness. Left ventricular systolic function is normal. The left ventricular ejection fraction is within the normal range. LVEF is 60%. Grade IV - fixed restrictive diastolic dysfunction. Right Ventricle The right ventricle is normal size. The right ventricular systolic function is normal. Atria Left atrium is mildly dilated. The right atrium size is normal. Aortic Valve Mild aortic valve sclerosis. No aortic regurgitation is present. No hemodynamically significant valvular aortic stenosis. Mitral Valve The mitral valve is normal in structure. Mild mitral regurgitation. No evidence of mitral valve stenosis. Tricuspid Valve The tricuspid valve is normal in structure. Mild tricuspid regurgitation. [place] [address] 2 D/M-MODE ECHOCARDIOGRAM Name: KULWANT CASTRO Room: [address] IN [facility]#: [id number] Admission: 06/18/20 Attend Phys: Deborah Wayne, Discharge: Date of : 52 Date of Service: 06/19/20 1619 Report #: [id number] Pulmonic Valve The pulmonary valve is normal in structure. There is no pulmonic valvular regurgitation. Great Vessels The aortic root is normal in size. IVC is dilated and collapses >50% with inspiration. Pericardium There is no pericardial effusion. <Conclusion> The left ventricle is normal size. There is normal left ventricular wall thickness. Left ventricular systolic function is normal. The left ventricular ejection fraction is within the normal range. LVEF is 60%. The right ventricle is normal size. Left atrium is mildly dilated. The right atrium size is normal. Mild aortic valve sclerosis. No aortic regurgitation is present. No hemodynamically significant valvular aortic stenosis. The mitral valve is normal in structure. Mild mitral regurgitation. The tricuspid valve is normal in structure. Mild tricuspid regurgitation. Mild pulmonary hypertension. IVC is dilated and collapses >50% with inspiration. There is no pericardial effusion. There is normal LV segmental wall motion. <ELECTRONICALLY SIGNED> By: Mckay Cordova MD, FACC 06/19/20 1619 [id number] Mckay Cordova MD, FACC /INF
[2020-06-19 20:00] VITALS: BP 133/47
[2020-06-19] MEDS ORDERED: OXYCODONE HCL E15 MG PO (22:09)
[2020-06-19] MEDS ORDERED: OXYCODONE HCL E60 MG PO (22:10)
[2020-06-20 00:54] VITALS: BP 151/72
[2020-06-20 04:00] VITALS: BP 154/77
[2020-06-20 07:24] LABS: HEMATOCRIT 31.4 % (37.0-47.0); HEMOGLOBIN 10.2 gm/dL (12.0-15.0); MCH 26.3 pg (26.0-34.0); MCHC 32.5 g/dL (28.0-37.0); MCV 80.9 fL (80.0-100.0); MPV 8.4 fl. (7.2-11.1); RBC 3.88 mil/uL (4.20-5.00); WBC 11.4 thou/uL (4.0-11.0)
[2020-06-20 07:33] LABS: CREATININE 1.1 mg/dL (0.6-1.3); MAGNESIUM 2.1 mg/dL (1.8-2.4)
[2020-06-20 08:00] VITALS: BP 144/75
[2020-06-20 20:37] VITALS: BP 116/51
[2020-06-20 23:53] VITALS: BP 100/49
[2020-06-21 03:19] VITALS: BP 108/52
[2020-06-21 04:46] LABS: HEMATOCRIT 29.3 % (37.0-47.0); HEMOGLOBIN 9.5 gm/dL (12.0-15.0); MCH 26.2 pg (26.0-34.0); MCHC 32.3 g/dL (28.0-37.0); MCV 81.1 fL (80.0-100.0); MPV 7.9 fl. (7.2-11.1); RBC 3.62 mil/uL (4.20-5.00); RDW-CV 16.3 % (10.5-14.5); WBC 11.4 thou/uL (4.0-11.0)
[2020-06-21 04:58] LABS: ALBUMIN 2.6 g/dL (3.4-5.0); CALCIUM 8.1 mg/dL (8.5-10.1); CREATININE 1.1 mg/dL (0.6-1.3); MAGNESIUM 2.2 mg/dL (1.8-2.4); POTASSIUM 3.2 mmol/L (3.5-5.1); TOTAL BILIRUBIN 0.3 mg/dL (<0.1-1.0); TOTAL PROTEIN 5.8 g/dL (6.4-8.2)
[2020-06-21 08:00] VITALS: BP 151/50
[2020-06-21 11:39] VITALS: BP 138/58
[2020-06-21 16:00] VITALS: BP 152/68
[2020-06-21 20:00] VITALS: BP 127/42
[2020-06-22 04:25] LABS: HEMATOCRIT 29.5 % (37.0-47.0); HEMOGLOBIN 9.6 gm/dL (12.0-15.0); MCH 26.5 pg (26.0-34.0); MCHC 32.7 g/dL (28.0-37.0); MCV 81.2 fL (80.0-100.0); MPV 8.6 fl. (7.2-11.1); RBC 3.63 mil/uL (4.20-5.00); RDW-CV 16.2 % (10.5-14.5); WBC 10.9 thou/uL (4.0-11.0)
[2020-06-22 04:38] VITALS: BP 123/57
[2020-06-22 04:44] LABS: CALCIUM 8.1 mg/dL (8.5-10.1); MAGNESIUM 2.3 mg/dL (1.8-2.4); POTASSIUM 3.2 mmol/L (3.5-5.1)
[2020-06-22 07:45] VITALS: BP 150/71
[2020-06-22 09:25] VITALS: BP 150/71
== END 2020-06-22 16:43 | DRG 564 ==
LOC: M.ERS 11:28 → M.TBA-ER 13:01 → M.2W 13:01 → M.ORTHSURG 06-20 15:16
PROVIDERS: Family Medicine; ADMIT Internal Medicine; ATTEND Internal Medicine
PROC: 5A09357 Assistance with Respiratory Ventilation, Less than 24 Consecutive Hours, Continuous Positive Airway Pressure (ICD-10-PCS; principal; 2020-06-19)
PROC: 5A09357 Assistance with Respiratory Ventilation, Less than 24 Consecutive Hours, Continuous Positive Airway Pressure (ICD-10-PCS; 2020-06-20)
PROC: 0QPHX5Z Removal of External Fixation Device from Left Tibia, External Approach (ICD-10-PCS; 2020-06-20)
DX: M84.462K Pathological fracture, left tibia, subsequent encounter for fracture with nonunion (principal); J96.01 Acute respiratory failure with hypoxia; I50.33 Acute on chronic diastolic (congestive) heart failure; I11.0 Hypertensive heart disease with heart failure; I25.10 Atherosclerotic heart disease of native coronary artery without angina pectoris; R79.1 Abnormal coagulation profile; K21.9 Gastro-esophageal reflux disease without esophagitis; G47.33 Obstructive sleep apnea (adult) (pediatric); M06.9 Rheumatoid arthritis, unspecified; M19.90 Unspecified osteoarthritis, unspecified site; Z20.828 Contact with and (suspected) exposure to other viral communicable diseases; F41.9 Anxiety disorder, unspecified; F32.9 Major depressive disorder, single episode, unspecified; M89.9 Disorder of bone, unspecified; Z79.899 Other long term (current) drug therapy; Z79.01 Long term (current) use of anticoagulants; Z79.82 Long term (current) use of aspirin; Z91.048 Other nonmedicinal substance allergy status; Z91.09 Other allergy status, other than to drugs and biological substances; Z86.19 Personal history of other infectious and parasitic diseases